=== PATIENT | female | born 1990 | race Caucasian/White ===

== ENCOUNTER 2016-04-27 22:29 | Inpatient (IN) | payer BC ==
[2016-04-27 23:03] LABS: APPEARANCE,URINE CLEAR; BILIRUBIN,URINE NEGATIVE (NEGATIVE); GLUCOSE, URINE NEGATIVE (NEGATIVE); KETONES,URINE NEGATIVE (NEGATIVE); LEUKOCYTE ESTERASE,URINE NEGATIVE (NEGATIVE); NITRITE,URINE NEGATIVE (NEGATIVE); PROTEIN,URINE NEGATIVE (NEGATIVE); URINE SPECIFIC GRAVITY 1.018; UROBILINOGEN,URINE NEGATIVE mg/dL (<2.0)
[2016-04-27 23:18] LABS: URINE BARBITURATES SCREEN NEGATIVE; URINE METHADONE SCREEN NEGATIVE; URINE OPIATES LOW NEGATIVE; URINE PHENCYCLIDINE SCREEN NEGATIVE
[2016-04-28 00:02] LABS: ABSOLUTE BASOPHILS # (AUTO) 0.1 10^3/uL (0.0-0.2); ABSOLUTE EOSINOPHILS # (AUTO) 0.2 10^3/uL (0.0-0.6); ABSOLUTE LYMPHOCYTES (AUTO) 2.6 10^3/uL (0.5-4.7); ABSOLUTE MONOCYTES (AUTO) 1.1 10^3/uL (0.1-1.4); ABSOLUTE NEUT (AUTO) 8.9 10^3/uL (1.7-8.2); BASOPHILS % (AUTO) 0.4 % (0-2); EOSINOPHILS % (AUTO) 1.6 % (0-6); HEMATOCRIT 34.3 % (36.0-47.0); HEMOGLOBIN 11.7 g/dL (12.0-15.5); HGB HCT DIFFERENCE 0.8; LYMPHOCYTES % (AUTO) 20.4 % (13-45); MEAN CORPUSCULAR HEMOGLOBIN 28.1 pg (27.0-33.4); MEAN CORPUSCULAR HGB CONC 34.2 g/dL (32.0-36.0); MEAN CORPUSCULAR VOLUME 82 fl (80-97); MONOCYTES % (AUTO) 8.2 % (3-13); RED BLOOD COUNT 4.18 10^6/uL (3.72-5.28); RED CELL DISTRIBUTION WIDTH 13.7 % (11.5-14.0); SEGMENTED NEUTROPHILS % (AUTO) 69.4 % (42-78); WHITE BLOOD COUNT 12.8 10^3/uL (4.0-10.5)
[2016-04-28] MEDS ORDERED: ACETAMINOPHEN 325 MG TABLET PO PRN (07:16)
[2016-04-28] MEDS ORDERED: DINOPROSTONE 10 MG VAGINAL INSERT.SR PV ONE (07:16)
[2016-04-28] MEDS ORDERED: OXYTOCIN/NORMAL SALINE 1,000 ML IV PRN (07:16)
[2016-04-28] MEDS ORDERED: RINGERS SOLUTION,LACTATED 300 ML IV ONE (07:16)
[2016-04-28] MEDS ORDERED: MAG HYDROX/AL HYDROX/SIMETH SUSP 30 ML UDCUP PO PRN (07:16)
[2016-04-28] MEDS ORDERED: ZOLPIDEM TARTRATE 5 MG TABLET PO PRN (07:16)
[2016-04-28] MEDS ORDERED: DINOPROSTONE 10 MG VAGINAL INSERT.SR ONE ×2 (07:23→20:45)
--- NOTE | 2016-04-28 08:00 | L&D Flow Sheet ---
LD Flowsheet Datetime Report Generated by CPN: 04/28/2016 08:00 Datetime: 04/28/2016 07:47 NBP Sys/Lashell/Mean (mmHg): 121 (QS system process) : 81 (QS system process) : 95 (QS system process) Pulse: 79 (QS system process) LaborFlag: Antepartum (QS system process) Datetime: 04/28/2016 07:38 Medications Cervical Ripening Agents: Cervidil (Heather Cyndi, RN) Datetime: 04/28/2016 07:35 Monitor Interventions for UA: [place] Adjusted (Heather Baidy, RN) Maternal Assessment Level of Consciousness: Fully Conscious (Heather Hanna, JAYLON) DTR's/Clonus: DTRs 1+ (Heather Hanna, RN) Headache: Denies (Heather Hanna, RN) Breath Sounds, Left: Clear and Equal (Heather Hanna, RN) Breath Sounds, Right: Clear and Equal (Heather Hanna, RN) Nausea/Vomiting: Denies (Heather Hanna, RN) RUQ Epigastric Pain: Denies (Heather Hanna, RN) Datetime: 04/28/2016 07:34 NBP Sys/Lashell/Mean (mmHg): 126 (QS system process) : 83 (QS system process) : 100 (QS system process) Pulse: 86 (QS system process) LaborFlag: Antepartum (QS system process) Datetime: 04/28/2016 07:30 Uterine Activity Monitor Mode: External; Palpation (Heather Hanna, RN) Frequency (min): denies (Heather Baidy, RN) Assessment A Monitor Mode: External US (Heather Baidy, RN) FHR Baseline Rate : 125 (Heather Baidy, RN) Variability: Moderate 6-25 bpm (Heather Baidy, RN) Accelerations: 15X15 (Heather Baidy, RN) Decelerations: None (Heather Baidy, RN) Datetime: 04/28/2016 07:13 I/O Interventions: Up to BR (Heather Baidy, RN) Datetime: 04/28/2016 07:08 Patient Care Comments: Report to Jayson Hanna RN and care relinquished (Kinsey Pinkman, RN) Datetime: 04/28/2016 07:07 Communication Comments: Dr Salinas at bedside reviewing POC with pt. (Heather Hanna, RN) Datetime: 04/28/2016 07:02 NBP Sys/[place]hell/Mean (mmHg): 100 (QS system process) : 59 (QS system process) : 76 (QS system process) Pulse: 69 (QS system process) LaborFlag: Antepartum (QS system process) Datetime: 04/28/2016 06:47 NBP Sys/[place]hell/Mean (mmHg): 103 (QS system process) : 57 (QS system process) : 73 (QS system process) Pulse: 73 (QS system process) LaborFlag: Antepartum (QS system process) Datetime: 04/28/2016 06:44 Patient Care Comments: Dr. Salinas reviewed pt strip (Kinsey Pinkfarrell, RN) Datetime: 04/28/2016 06:32 NBP Sys/[place]hell/Mean (mmHg): 98 (QS system process) : 53 (QS system process) : 68 (QS system process) Pulse: 71 (QS system process) LaborFlag: Antepartum (QS system process) Datetime: 04/28/2016 06:30 Uterine Activity Monitor Mode: External; Palpation (Kinsey Chalman, RN) Frequency (min): occ (Kinsey Chalman, RN) Quality: Mild (Kinsey Chalman, RN) Duration (sec): 50-70 (Kinsey Chalman, RN) Pattern: Normal: <= 5 Contractions in 10 Minutes (Kinsey Chalman, RN) Resting Tone (Palpate): Relaxed (Kinsey Chalman, RN) Assessment A Monitor Mode: External US (Kinsey Chalman, RN) FHR Baseline Rate : 125 (Kinsey Chalman, RN) FHR Baseline Changes: No Baseline Change (Kinsey Chalman, RN) Variability: Moderate 6-25 bpm (Kinsey Chalman, RN) Accelerations: 15X15 (Kinsey Chalman, RN) Decelerations: None (Kinsey Chalman, RN) Datetime: 04/28/2016 06:17 NBP Sys/[place]hell/Mean (mmHg): 99 (QS system process) : 56 (QS system process) : 73 (QS system process) Pulse: 74 (QS system process) LaborFlag: Antepartum (QS system process) Datetime: 04/28/2016 06:02 NBP Sys/[place]hell/Mean (mmHg): 112 (QS system process) : 59 (QS system process) : 79 (QS system process) Pulse: 83 (QS system process) LaborFlag: Antepartum (QS system process) Datetime: 04/28/2016 06:00 Uterine Activity Monitor Mode: External; Palpation (Kinsey Chalman, RN) Frequency (min): none (Kinsey Chalman, RN) Assessment A Monitor Mode: External US (Kinsey Chalman, RN) FHR Baseline Rate : 125 (Kinsey Chalman, RN) FHR Baseline Changes: No Baseline Change (Kinsey Chalman, RN) Variability: Moderate 6-25 bpm (Kinsey Chalman, RN) Accelerations: 15X15 (Kinsey Chalman, RN) Decelerations: None (Kinsey Chalman, RN) Datetime: 04/28/2016 05:47 NBP Sys/[place]hell/Mean (mmHg): 93 (QS system process) : 50 (QS system process) : 65 (QS system process) Pulse: 68 (QS system process) LaborFlag: Antepartum (QS system process) Datetime: 04/28/2016 05:33 NBP Sys/[place]hell/Mean (mmHg): 101 (QS system process) : 55 (QS system process) : 72 (QS system process) Pulse: 70 (QS system process) LaborFlag: Antepartum (QS system process) Datetime: 04/28/2016 05:30 Uterine Activity Monitor Mode: External; Palpation (Kinsey Chalman, RN) Frequency (min): none (Kinsey Chalman, RN) Assessment A Monitor Mode: External US (Kinsey Chalman, RN) FHR Baseline Rate : 125 (Kinsey Chalman, RN) FHR Baseline Changes: No Baseline Change (Kinsey Chalman, RN) Variability: Moderate 6-25 bpm (Kinsey Chalman, RN) Accelerations: 15X15 (Kinsey Chalman, RN) Decelerations: None (Kinsey Chalman, RN) Datetime: 04/28/2016 05:18 NBP Sys/[place]/Mean (mmHg): 121 (QS system process) : 68 (QS system process) : 84 (QS system process) Pulse: 84 (QS system process) LaborFlag: Antepartum (QS system process) Datetime: 04/28/2016 05:02 NBP Sys/[place]/Mean (mmHg): 110 (QS system process) : 70 (QS system process) : 85 (QS system process) Pulse: 89 (QS system process) LaborFlag: Antepartum (QS system process) Datetime: 04/28/2016 05:00 Uterine Activity Monitor Mode: External; Palpation (Kinsey Chalman, RN) Frequency (min): none (Kinsey Chalman, RN) Assessment A Monitor Mode: External US (Kinsey Chalman, RN) FHR Baseline Rate : 125 (Kinsey Chalman, RN) FHR Baseline Changes: No Baseline Change (Kinsey Chalman, RN) Variability: Moderate 6-25 bpm (Kinsey Chalman, RN) Accelerations: 15X15 (Kinsey Chalman, RN) Decelerations: None (Kinsey Chalman, RN) Datetime: 04/28/2016 04:47 NBP Sys/[place]/Mean (mmHg): 107 (QS system process) : 63 (QS system process) : 80 (QS system process) Pulse: 81 (QS system process) LaborFlag: Antepartum (QS system process) Datetime: 04/28/2016 04:32 NBP Sys/[place]/Mean (mmHg): 105 (QS system process) : 57 (QS system process) : 74 (QS system process) Pulse: 80 (QS system process) LaborFlag: Antepartum (QS system process) Datetime: 04/28/2016 04:30 Uterine Activity Monitor Mode: External; Palpation (Kinsey Chalman, RN) Frequency (min): none (Kinsey Mathew, RN) Assessment A Monitor Mode: External US (Kinsey Chalman, RN) FHR Baseline Rate : 125 (Kinsey Chalman, RN) FHR Baseline Changes: No Baseline Change (Kinsey Chalman, RN) Variability: Moderate 6-25 bpm (Kinsey Chalman, RN) Accelerations: 15X15 (Kinsey Chalman, RN) Decelerations: None (Kinsey Chalman, RN) Datetime: 04/28/2016 04:17 NBP Sys/[place]/Mean (mmHg): 107 (QS system process) : 61 (QS system process) : 78 (QS system process) Pulse: 72 (QS system process) LaborFlag: Antepartum (QS system process) Datetime: 04/28/2016 04:02 NBP Sys/[place]/Mean (mmHg): 106 (QS system process) : 60 (QS system process) : 77 (QS system process) Pulse: 75 (QS system process) LaborFlag: Antepartum (QS system process) Datetime: 04/28/2016 04:00 Uterine Activity Monitor Mode: External; Palpation (Kinsey Chalman, RN) Frequency (min): none (Kinsey Chalman, RN) Assessment A Monitor Mode: External US (Kinsey Chalman, RN) FHR Baseline Rate : 125 (Kinsey Chalman, RN) Variability: Moderate 6-25 bpm (Kinsey Chalman, RN) Accelerations: 15X15 (Kinsey Chalman, RN) Decelerations: None (Kinsey Chalman, RN) Datetime: 04/28/2016 03:47 NBP Sys/[place]/Mean (mmHg): 113 (QS system process) : 65 (QS system process) : 83 (QS system process) Pulse: 75 (QS system process) LaborFlag: Antepartum (QS system process) Datetime: 04/28/2016 03:33 NBP Sys/[place]/Mean (mmHg): 119 (QS system process) : 64 (QS system process) : 84 (QS system process) Pulse: 86 (QS system process) LaborFlag: Antepartum (QS system process) Datetime: 04/28/2016 03:30 Uterine Activity Monitor Mode: External; Palpation (Kinsey Chalman, RN) Frequency (min): none (Kinsey Chalman, RN) Assessment A Monitor Mode: External US (Kinsey Mathew, RN) FHR Baseline Rate : 135 (Kinsey Mathew, RN) FHR Baseline Changes: No Baseline Change (Kinsey Aprylman, RN) Variability: Moderate 6-25 bpm (Kinsey Aprylman, RN) Accelerations: 15X15 (Kinsey Mathew, RN) Decelerations: None (Kinsey Chalman, RN) Datetime: 04/28/2016 03:17 NBP Sys/[place]hell/Mean (mmHg): 119 (QS system process) : 72 (QS system process) : 91 (QS system process) Pulse: 75 (QS system process) LaborFlag: Antepartum (QS system process) Datetime: 04/28/2016 03:02 NBP Sys/[place]/Mean (mmHg): 116 (QS system process) : 67 (QS system process) : 85 (QS system process) Pulse: 77 (QS system process) LaborFlag: Antepartum (QS system process) Datetime: 04/28/2016 03:00 Uterine Activity Monitor Mode: External; Palpation (Kinsey Chalman, RN) Frequency (min): none (Kinsey Chalman, RN) Assessment A Monitor Mode: External US (Kinsey Chalman, RN) FHR Baseline Rate : 135 (Kinsey Chalman, RN) Variability: Moderate 6-25 bpm (Kinsey Chalman, RN) Accelerations: 15X15 (Kinsey Chalman, RN) Decelerations: None (Kinsey Chalman, RN) Datetime: 04/28/2016 01:33 I/O Interventions: Up to BR (Kinsey Chalman, RN) Datetime: 04/28/2016 01:32 NBP Sys/[place]/Mean (mmHg): 117 (QS system process) : 71 (QS system process) : 88 (QS system process) Pulse: 94 (QS system process) LaborFlag: Antepartum (QS system process) Datetime: 04/28/2016 01:30 Uterine Activity Monitor Mode: External; Palpation (Kinsey Chalman, RN) Frequency (min): none (Kinsey Chalman, RN) Assessment A Monitor Mode: External US (Kinsey Chalman, RN) FHR Baseline Rate : 140 (Kinsey Chalman, RN) FHR Baseline Changes: No Baseline Change (Kinsey Chalman, RN) Variability: Moderate 6-25 bpm (Kinsey Chalman, RN) Accelerations: 15X15 (Kinsey Chalman, RN) Decelerations: None (Kinsey Chalman, RN) Datetime: 04/28/2016 01:17 NBP Sys/[place]/Mean (mmHg): 116 (QS system process) : 72 (QS system process) : 88 (QS system process) Pulse: 80 (QS system process) LaborFlag: Antepartum (QS system process) Datetime: 04/28/2016 01:13 Patient Care IV/Blood Work: New IV Bag Hung (Kinsey Chalman, RN) Datetime: 04/28/2016 01:02 NBP Sys/[place]/Mean (mmHg): 122 (QS system process) : 72 (QS system process) : 91 (QS system process) Pulse: 83 (QS system process) LaborFlag: Antepartum (QS system process) Datetime: 04/28/2016 01:00 Uterine Activity Monitor Mode: External; Palpation (Kinsey Chalman, RN) Frequency (min): none (Kinsey Chalman, RN) Assessment A Monitor Mode: External US (Kinsey Chalman, RN) FHR Baseline Rate : 140 (Kinsey Chalman, RN) FHR Baseline Changes: No Baseline Change (Kinsey Mathew, RN) Variability: Moderate 6-25 bpm (Kinsey Mathew, RN) Accelerations: 15X15 (Kinsey Mathew, RN) Datetime: 04/28/2016 00:52 Patient Care Comments: RN at bedside. unprovoked decel. return to baseline without actions for resusciation (Kinsey Carmona, RN) Datetime: 04/28/2016 00:47 NBP Sys/[place]/Mean (mmHg): 126 (QS system process) : 75 (QS system process) : 94 (QS system process) Pulse: 78 (QS system process) LaborFlag: Antepartum (QS system process) Datetime: 04/28/2016 00:32 NBP Sys/[place]hell/Mean (mmHg): 140 (QS system process) : 79 (QS system process) : 103 (QS system process) Pulse: 87 (QS system process) LaborFlag: Antepartum (QS system process) Datetime: 04/28/2016 00:30 Uterine Activity Monitor Mode: External; Palpation (Kinsey Chalman, RN) Frequency (min): none (Kinsey Chalman, RN) Assessment A Monitor Mode: External US (Kinsey Chalman, RN) FHR Baseline Rate : 145 (Kinsey Chalman, RN) FHR Baseline Changes: Return to Previous Baseline (Kinsey Chalman, RN) Variability: Moderate 6-25 bpm (Kinsey Chalman, RN) Decelerations: None (Kinsey Chalman, RN) Communication Additional Nursing Comments: per u/s tech NORI = 8.3 (Kinsey Chalman, RN) Datetime: 04/28/2016 00:21 Patient Care Comments: pt off monitor for u/s (Kinsey Chalman, RN) Datetime: 04/28/2016 00:19 Patient Care Comments: u/s at bedside (Shruthi Jorge, RN) Datetime: 04/28/2016 00:18 NBP Sys/[place]hell/Mean (mmHg): 132 (QS system process) : 74 (QS system process) : 98 (QS system process) Pulse: 79 (QS system process) LaborFlag: Antepartum (QS system process) Datetime: 04/28/2016 00:16 Patient Care Comments: new iv bag hung (Kinsey Chalman, RN) Datetime: 04/28/2016 00:15 Uterine Activity Monitor Mode: External; Palpation (Kinsey Chalman, RN) Frequency (min): none (Kinsey Chalman, RN) Assessment A Monitor Mode: External US (Kinsey Chalman, RN) FHR Baseline Rate : 135 (Kinsey Chalman, RN) Variability: Moderate 6-25 bpm (Kinsey Chalman, RN) Accelerations: 15X15 (Kinsey Chalman, RN) Decelerations: None (Kinsey Chalman, RN) Datetime: 04/28/2016 00:12 I/O Interventions: Up to BR (Kinsey Chalman, RN) Datetime: 04/28/2016 00:09 Patient Care Comments: Dr Salinas at bedside to review POC with pt. Provider explained to pt that we weould observe her until the AM but if FHR decels again that stat c/s would be called (Kinsey Aprylman, RN) Communication Additional Nursing Comments: Dr. Salinas order stat bedside u/s for NORI (Kinsey Chalman, RN) Datetime: 04/28/2016 00:03 NBP Sys/[place]/Mean (mmHg): 121 (QS system process) : 77 (QS system process) : 93 (QS system process) Pulse: 87 (QS system process) LaborFlag: Antepartum (QS system process) Datetime: 04/28/2016 00:00 Uterine Activity Monitor Mode: External; Palpation (Kinsey Aprylman, RN) Frequency (min): none (Kinsey Carmona, RN) Assessment A Monitor Mode: External US (Kinsey Chalman, RN) FHR Baseline Rate : 130 (Kinsey Chalman, RN) Variability: Moderate 6-25 bpm (Kinsey Chalman, RN) Accelerations: 15X15 (Kinsey Chalman, RN) Decelerations: None (Kinsey Chalman, RN) Datetime: 04/27/2016 23:45 Uterine Activity Monitor Mode: External; Palpation (Kinsey Chalman, RN) Frequency (min): none (Kinsey Chalman, RN) Assessment A Monitor Mode: External US (Kinsey Chalman, RN) FHR Baseline Rate : 125 (Kinsey Chalman, RN) Variability: Moderate 6-25 bpm (Kinsey Chalman, RN) Decelerations: Prolonged (Kinsey Chalman, RN) Datetime: 04/27/2016 23:37 Communication Comments: orders received from dr salinas top admit pt. at this time (Shruthi Jorge, RN) Datetime: 04/27/2016 23:36 Patient Care Comments: pt prepped for possible stat c/s (Kinsey Chalman, RN) Datetime: 04/27/2016 23:35 Communication Comments: Orders received to notify second provider for backup if decel continues for more than 3 minutes (Mckenna Ring, RN) Communication Comments: Dr. Salinas notified of decelerations. (Mckenna Ring, RN) Datetime: 04/27/2016 23:34 NBP Sys/[place]hell/Mean (mmHg): 136 (QS system process) : 95 (QS system process) : 112 (QS system process) Pulse: 86 (QS system process) Actions for Decelerations: Hands and Knees (Kinsey Carmona RN) Vaginal Exam Comments: closed (Kinsey Carmona RN) Patient Care Comments: 2nd RN ay bedside (Kinsey Carmona RN) LaborFlag: Antepartum (QS system process) Datetime: 04/27/2016 23:32 Actions for Decelerations: Side to Side (Kinsey Chalman, RN) Datetime: 04/27/2016 23:31 Patient Care Comments: RN at bedside. audibel decel (Kinsey Chalman, RN) Datetime: 04/27/2016 23:30 Uterine Activity Monitor Mode: External; Palpation (Kinsey Chalman, RN) Frequency (min): none (Kinsey Chalman, RN) Assessment A Monitor Mode: External US (Kinsey Chalman, RN) FHR Baseline Rate : 140 (Kinsey Chalman, RN) Variability: Moderate 6-25 bpm (Kinsey Chalman, RN) Accelerations: 10X10 (Kinsey Chalman, RN) Decelerations: None (Kinsey Chalman, RN) Datetime: 04/27/2016 23:21 Patient Care IV/Blood Work: IV Started; IV Bolus Started (Mckenna Ring, RN) Datetime: 04/27/2016 23:18 NBP Sys/[place]/Mean (mmHg): 141 (QS system process) : 93 (QS system process) : 112 (QS system process) Pulse: 85 (QS system process) LaborFlag: Antepartum (QS system process) Datetime: 04/27/2016 23:16 Patient Care IV/Blood Work: IV Started; IV Bolus Started (Kinsey Aprylman, RN) Datetime: 04/27/2016 23:15 Uterine Activity Monitor Mode: External; Palpation (Kinsey Mathew, RN) Frequency (min): none (Kinsey Aprylman, RN) Assessment A Monitor Mode: External US (Kinsey Carmona, RN) FHR Baseline Rate : 150 (Kinsey Carmona, RN) FHR Baseline Changes: No Baseline Change (Kinsey Chalman, RN) Variability: Moderate 6-25 bpm (Kinsey Chalman, RN) Accelerations: 10X10 (Kinsey Chalman, RN) Decelerations: Prolonged (Kinsey Chalman, RN) Datetime: 04/27/2016 23:13 Actions for Decelerations: Hands and Knees; Oxygen Applied (Kinsey Aprylman, RN) Datetime: 04/27/2016 23:12 Patient Care Comments: 2nd RN at bedside (Kinsey Aprylman, RN) Datetime: 04/27/2016 23:10 Actions for Decelerations: Side to Side (Kinsey Carmona RN) Comments: audible decel. actions for decelerations taken (Kinsey Carmona RN) Patient Care Comments: RN at bedside eval FHR (Kinsey Carmona, JAYLON) Datetime: 04/27/2016 23:06 Communication Additional Nursing Comments: report given to Dr. Salinas. provider aware of pt complaint, u/a results, BP and FHA tracing. Per provider once NST is reactive pt ok to be d/c home (Kinsey Carmona RN) Datetime: 04/27/2016 23:04 NBP Sys/[place]/Mean (mmHg): 117 (QS system process) : 74 (QS system process) : 87 (QS system process) Pulse: 90 (QS system process) Temperature (F): 98.0 (Kinsey Chalman, RN) Temperature (C): 36.7 (QS system process) Temperature Route: Oral (Kinsey Mathew, RN) LaborFlag: Antepartum (QS system process) Datetime: 04/27/2016 23:00 Uterine Activity Monitor Mode: External; Palpation (Kinsey Mathew, RN) Frequency (min): none (Kinsey Mathew, RN) Assessment A Monitor Mode: External US (Kinsey Chalman, RN) FHR Baseline Rate : 150 (Kinsey Chalman, RN) FHR Baseline Changes: No Baseline Change (Kinsey Chalman, RN) Variability: Moderate 6-25 bpm (Kinsey Chalman, RN) Accelerations: 15X15 (Kinsey Chalman, RN) Decelerations: None (Kinsey Chalman, RN) Datetime: 04/27/2016 22:56 Pain Pain Scale: 0 (Kinsey Chalman, RN) Pain Presence: None/Denies (Kinsey Chalman, RN) Pain Type: N/A (Kinsey Chalman, RN) Vaginal Exam Membrane Status: Intact (Kinsey Carmona, RN) Vaginal Bleeding: None (Kinsey Chalman, RN) Maternal Assessment Level of Consciousness: Fully Conscious (Kinsey Carmona RN) DTR's/Clonus: DTRs 1+ (Kinsey Carmona, RN) Headache: Generalized (Kinsey Carmona, RN) Breath Sounds, Left: Clear and Equal (Kinsey Carmona, RN) Breath Sounds, Right: Clear and Equal (Kinsey Carmona, RN) Nausea/Vomiting: Hx of Nausea/Vomiting (Kinsey Carmona, JAYLON) RUQ Epigastric Pain: Denies (Annotations: pt denies at this moment but states that it comes and goes over the last 2 weeks) (Kinsey Carmona RN) LaborFlag: Antepartum (QS system process) Datetime: 04/27/2016 22:51 NBP Sys/[place]hell/Mean (mmHg): 117 (QS system process) : 69 (QS system process) : 87 (QS system process) Pulse: 84 (QS system process) LaborFlag: Antepartum (QS system process) Datetime: 04/27/2016 22:00 Vital Signs Stage of : Antepartum (Kinsey Carmona RN)
--- NOTE | 2016-04-28 10:00 | L&D Flow Sheet ---
LD Flowsheet Datetime Report Generated by CPN: 04/28/2016 10:00 Datetime: 04/28/2016 09:56 Monitor Interventions for FHR: Ultrasound Adjusted (Heather Baidy, RN) Datetime: 04/28/2016 09:06 NBP Sys/[place]/Mean (mmHg): 126 (QS system process) : 85 (QS system process) : 97 (QS system process) Pulse: 85 (QS system process) LaborFlag: Antepartum (QS system process) Datetime: 04/28/2016 09:00 Monitor Mode: External; Palpation (Alina Ivan, RN) Frequency (min): Irreg (Alina Ivan, RN) Quality: Mild/Moderate (Alina Ivan, RN) Duration (sec): 50-80 (Alina Ivan, RN) Resting Tone (Palpate): Relaxed (Alina Ivan, RN) Monitor Mode: External US (Alina Ivan, RN) FHR Baseline Rate : 120 (Alina Ivan, RN) Variability: Moderate 6-25 bpm (Alina Ivan, RN) Accelerations: 15X15 (Alina Ivan, RN) Decelerations: None (Alina vIan, RN) Patient Care Comments: pt sitting up in bed eating breakfast, picking up maternal heart rate. (Heather Baidy, RN) Datetime: 04/28/2016 08:52 Patient Care Comments: breakfast tray delivered (Heather Baidy, RN) Datetime: 04/28/2016 08:30 Monitor Mode: External; Palpation (Heather Baidy, RN) Frequency (min): irregular (Heather Baidy, RN) Quality: Mild (Heather Baidy, RN) Duration Criteria: Less than Two 120 Second Contractions (Heather Baidy, RN) Pattern: Normal: <= 5 Contractions in 10 Minutes (Heather Baidy, RN) Resting Tone (Palpate): Relaxed (Heather Baidy, RN) Monitor Mode: External US (Heather Baidy, RN) FHR Baseline Rate : 115 (Heather Baidy, RN) Variability: Moderate 6-25 bpm (Heather Baidy, RN) Accelerations: 15X15 (Heather Baidy, RN) Decelerations: None (Heather Baidy, RN) Datetime: 04/28/2016 08:07 Temperature (F): 97.8 (Heather Baidy, RN) Temperature (C): 36.6 (QS system process) LaborFlag: Antepartum (QS system process) Datetime: 04/28/2016 08:03 NBP Sys/[place]hell/Mean (mmHg): 116 (QS system process) : 71 (QS system process) : 86 (QS system process) Pulse: 72 (QS system process) LaborFlag: Antepartum (QS system process) Datetime: 04/28/2016 08:00 Monitor Mode: External; Palpation (Heather Hanna RN) Frequency (min): irregular (Heather Hanna RN) Quality: Mild (Heather Hanna RN) Duration Criteria: Less than Two 120 Second Contractions (Heather Hanna RN) Pattern: Normal: <= 5 Contractions in 10 Minutes (Heather Hanna RN) Resting Tone (Palpate): Relaxed (Heather Hanna RN) Monitor Mode: External US (Heather Hanna RN) FHR Baseline Rate : 120 (Heather Hanna RN) Variability: Moderate 6-25 bpm (Heather Hanna RN) Accelerations: 15X15 (Heather Hanna RN) Decelerations: None (Heather Hanna RN)
--- NOTE | 2016-04-28 12:00 | L&D Flow Sheet ---
LD Flowsheet Datetime Report Generated by CPN: 04/28/2016 12:00 Datetime: 04/28/2016 11:38 NBP Sys/[place]hell/Mean (mmHg): 124 (QS system process) : 70 (QS system process) : 89 (QS system process) Pulse: 72 (QS system process) LaborFlag: Antepartum (QS system process) Datetime: 04/28/2016 11:30 Monitor Mode: External; Palpation (Heather Hanna, JAYLON) Frequency (min): irregular (Heather Hanna RN) Quality: Mild (Heather Hanna RN) Duration Criteria: Less than Two 120 Second Contractions (Heather Hanna RN) Pattern: Normal: <= 5 Contractions in 10 Minutes (Heather Hanna RN) Resting Tone (Palpate): Relaxed (Heather Hanna, RN) Monitor Mode: External US (Heather Hanna RN) FHR Baseline Rate : 120 (Heather Hanna RN) Variability: Moderate 6-25 bpm (Heather Hanna RN) Accelerations: 15X15 (Heather Hanna RN) Decelerations: None (Heather Hanna, RN) Datetime: 04/28/2016 11:11 Monitor Interventions for UA: [place] Adjusted (Heather Hanna, JAYLON) Datetime: 04/28/2016 11:06 NBP Sys/[place]hell/Mean (mmHg): 124 (QS system process) : 77 (QS system process) : 95 (QS system process) Pulse: 83 (QS system process) I/O Interventions: Up to BR (Heather Hanna RN) LaborFlag: Antepartum (QS system process) Datetime: 04/28/2016 11:00 Monitor Mode: External; Palpation (Heather Baidy, RN) Frequency (min): irregular (Heather Baidy, RN) Quality: Mild (Heather Baidy, RN) Duration Criteria: Less than Two 120 Second Contractions (Heather Baidy, RN) Pattern: Normal: <= 5 Contractions in 10 Minutes (Heather Baidy, RN) Resting Tone (Palpate): Relaxed (Heather Baidy, RN) Monitor Mode: External US (Heather Baidy, RN) FHR Baseline Rate : 120 (Heather Baidy, RN) Variability: Moderate 6-25 bpm (Heather Baidy, RN) Accelerations: 15X15 (Heather Baidy, RN) Decelerations: None (Heather Baidy, RN) Datetime: 04/28/2016 10:30 Monitor Mode: External; Palpation (Heather Baidy, RN) Frequency (min): irregular (Heather Baidy, RN) Quality: Mild (Heather Baidy, RN) Duration Criteria: Less than Two 120 Second Contractions (Heather Baidy, RN) Pattern: Normal: <= 5 Contractions in 10 Minutes (Heather Baicandelario, RN) Resting Tone (Palpate): Relaxed (Heather Baicandelario, RN) Monitor Mode: External US (Heather Hanna, RN) FHR Baseline Rate : 115 (Heather Hanna, RN) Variability: Moderate 6-25 bpm (Heather Baidy, RN) Accelerations: 15X15 (Heather Baidy, RN) Decelerations: None (Heather Baidy, RN) Datetime: 04/28/2016 10:22 Monitor Interventions for UA: [place] Adjusted (Heather Baicandelario, RN) Datetime: 04/28/2016 10:07 NBP Sys/[place]/Mean (mmHg): 122 (QS system process) : 69 (QS system process) : 88 (QS system process) Pulse: 87 (QS system process) LaborFlag: Antepartum (QS system process) Datetime: 04/28/2016 10:00 Monitor Mode: External; Palpation (Heather Hanna RN) Frequency (min): irregular (Heather Hanna RN) Quality: Mild (Heather Hanna RN) Duration Criteria: Less than Two 120 Second Contractions (Heather Hanna RN) Pattern: Normal: <= 5 Contractions in 10 Minutes (Heather Hanna RN) Resting Tone (Palpate): Relaxed (Heather Hanna RN) Monitor Mode: External US (Heather Hanna RN) FHR Baseline Rate : 115 (Heather Hanna RN) Variability: Moderate 6-25 bpm (Heather Hanna RN) Accelerations: 15X15 (Heather Hanna RN) Decelerations: None (Heather Hanna RN)
[2016-04-28] MEDS: RINGERS SOLUTION,LACTATED 1,000 ML IV PRN (13:14)
--- NOTE | 2016-04-28 14:00 | L&D Flow Sheet ---
LD Flowsheet Datetime Report Generated by CPN: 04/28/2016 14:00 Datetime: 04/28/2016 13:38 NBP Sys/[place]hell/Mean (mmHg): 131 (QS system process) : 88 (QS system process) : 101 (QS system process) Pulse: 71 (QS system process) LaborFlag: Antepartum (QS system process) Datetime: 04/28/2016 13:17 Patient Care Comments: lunch tray delivered. (Heather Baidy, RN) Datetime: 04/28/2016 13:14 IV/Blood Work: IV Infusing per Order; New IV Bag Hung (Heather Baidy, RN) Datetime: 04/28/2016 13:11 Respirations: 16 (Heather Baidy, RN) Temperature (F): 98.1 (Heather Baidy, RN) Temperature (C): 36.7 (QS system process) LaborFlag: Antepartum (QS system process) Datetime: 04/28/2016 13:07 NBP Sys/[place]/Mean (mmHg): 125 (QS system process) : 74 (QS system process) : 91 (QS system process) Pulse: 68 (QS system process) LaborFlag: Antepartum (QS system process) Datetime: 04/28/2016 13:00 Monitor Mode: External; Palpation (Heather Hanna, RN) Frequency (min): irregular (Heather Baidy, RN) Quality: Mild (Heather Baidy, RN) Duration Criteria: More than Two 120 Second or Greater Contractions (Heather Hanna, RN) Pattern: Normal: <= 5 Contractions in 10 Minutes (Heather Baidy, RN) Resting Tone (Palpate): Relaxed (Heather Baidy, RN) Monitor Mode: External US (Heather Hanna, RN) FHR Baseline Rate : 120 (Heather Baidy, RN) Variability: Moderate 6-25 bpm (Heather Baidy, RN) Accelerations: 15X15 (Heather Baidy, RN) Decelerations: None (Heather Baidy, RN) Datetime: 04/28/2016 12:37 NBP Sys/[place]/Mean (mmHg): 122 (QS system process) : 75 (QS system process) : 91 (QS system process) Pulse: 69 (QS system process) LaborFlag: Antepartum (QS system process) Datetime: 04/28/2016 12:30 Monitor Mode: External; Palpation (Heather Baidy, RN) Frequency (min): irregular (Heather Baidy, RN) Quality: Mild (Heather Baidy, RN) Duration Criteria: Less than Two 120 Second Contractions (Heather Baidy, RN) Pattern: Normal: <= 5 Contractions in 10 Minutes (Heather Baidy, RN) Resting Tone (Palpate): Relaxed (Heather Baidy, RN) Monitor Mode: External US (Heather Baidy, RN) FHR Baseline Rate : 125 (Heather Baidy, RN) Variability: Moderate 6-25 bpm (Heather Baidy, RN) Accelerations: 15X15 (Heather Baidy, RN) Decelerations: None (Heather Baidy, RN) Datetime: 04/28/2016 12:07 NBP Sys/[place]/Mean (mmHg): 122 (QS system process) : 59 (QS system process) : 84 (QS system process) Pulse: 78 (QS system process) LaborFlag: Antepartum (QS system process) Datetime: 04/28/2016 12:00 Monitor Mode: External; Palpation (Heather Hanna RN) Frequency (min): irregular (Heather Hanna RN) Quality: Mild (Heather Hanna RN) Duration Criteria: Less than Two 120 Second Contractions (Heather Hanna RN) Pattern: Normal: <= 5 Contractions in 10 Minutes (Heather Hanna RN) Resting Tone (Palpate): Relaxed (Heather Hanna RN) Monitor Mode: External US (Heather Hanna RN) FHR Baseline Rate : 125 (Heather Hanna RN) FHR Baseline Changes: Return to Previous Baseline (Heather Hanna RN) Variability: Moderate 6-25 bpm (Heather Hanna RN) Accelerations: 15X15 (Heather Hanna RN) Decelerations: None (Heather Hanna RN)
--- NOTE | 2016-04-28 16:00 | L&D Flow Sheet ---
LD Flowsheet Datetime Report Generated by CPN: 04/28/2016 16:00 Datetime: 04/28/2016 15:37 NBP Sys/[place]hell/Mean (mmHg): 121 (QS system process) : 75 (QS system process) : 93 (QS system process) Pulse: 73 (QS system process) LaborFlag: Antepartum (QS system process) Datetime: 04/28/2016 15:19 Monitor Interventions for FHR: Ultras[place] Adjusted (Heather Baidy, RN) Datetime: 04/28/2016 15:07 NBP Sys/[place]/Mean (mmHg): 125 (QS system process) : 69 (QS system process) : 89 (QS system process) Pulse: 76 (QS system process) LaborFlag: Antepartum (QS system process) Datetime: 04/28/2016 14:38 NBP Sys/[place]/Mean (mmHg): 126 (QS system process) : 65 (QS system process) : 88 (QS system process) Pulse: 80 (QS system process) LaborFlag: Antepartum (QS system process) Datetime: 04/28/2016 14:30 Monitor Mode: External; Palpation (Heather Baidy, RN) Frequency (min): irregular (Heather Baidy, RN) Quality: Mild (Heather Baidy, RN) Duration Criteria: Less than Two 120 Second Contractions (Heather Baidy, RN) Pattern: Normal: <= 5 Contractions in 10 Minutes (Heather Baidy, RN) Resting Tone (Palpate): Relaxed (Heather Baidy, RN) Monitor Mode: External US (Heather Baidy, RN) FHR Baseline Rate : 120 (Heather Baidy, RN) Variability: Moderate 6-25 bpm (Heather Baidy, RN) Accelerations: 15X15 (Heather Baidy, RN) Decelerations: None (Heather Baidy, RN) Datetime: 04/28/2016 14:06 I/O Interventions: Up to BR (Heather Baidy, RN) Datetime: 04/28/2016 14:00 Monitor Mode: External; Palpation (Heather Baidy, RN) Frequency (min): irregular (Heather Baidy, RN) Quality: Mild (Heather Hanna RN) Duration Criteria: Less than Two 120 Second Contractions (Heather Hanna RN) Pattern: Normal: <= 5 Contractions in 10 Minutes (Heather Hanna RN) Resting Tone (Palpate): Relaxed (Heather Hanna RN) Monitor Mode: External US (Heather Hanna RN) FHR Baseline Rate : 120 (Heather Hanan RN) FHR Baseline Changes: Return to Previous Baseline (Heather Hanna RN) Variability: Moderate 6-25 bpm (Heather Hanna RN) Accelerations: 15X15 (Heather Hanna RN) Decelerations: None (Heather Hanna RN)
--- NOTE | 2016-04-28 18:00 | L&D Flow Sheet ---
LD Flowsheet Datetime Report Generated by CPN: 04/28/2016 18:00 Datetime: 04/28/2016 17:37 NBP Sys/[place]hell/Mean (mmHg): 139 (QS system process) : 84 (QS system process) : 107 (QS system process) Pulse: 87 (QS system process) LaborFlag: Antepartum (QS system process) Datetime: 04/28/2016 17:08 NBP Sys/[place]/Mean (mmHg): 131 (QS system process) : 81 (QS system process) : 98 (QS system process) Pulse: 89 (QS system process) LaborFlag: Antepartum (QS system process) Datetime: 04/28/2016 16:59 Monitor Mode: External; Palpation (Heather Hanna, RN) Frequency (min): irregular (Heather Baicandelario, RN) Quality: Mild (Heather Baidy, RN) Duration Criteria: Less than Two 120 Second Contractions (Heather Cyndi, RN) Pattern: Normal: <= 5 Contractions in 10 Minutes (Heather Baidy, RN) Resting Tone (Palpate): Relaxed (Heather Baicandelario, RN) Monitor Mode: External US (Heather Cyndi, RN) FHR Baseline Rate : 120 (Heather Baidy, RN) Variability: Moderate 6-25 bpm (Heather Baidy, RN) Accelerations: 15X15 (Heather Baidy, RN) Decelerations: None (Heather Baidy, RN) Datetime: 04/28/2016 16:37 NBP Sys/[place]/Mean (mmHg): 117 (QS system process) : 70 (QS system process) : 86 (QS system process) Pulse: 75 (QS system process) LaborFlag: Antepartum (QS system process) Datetime: 04/28/2016 16:29 Monitor Mode: External; Palpation (Heather Hanna, RN) Frequency (min): irregular (Heather Hanna, RN) Quality: Mild (Heather Cyndi, RN) Duration Criteria: Less than Two 120 Second Contractions (Heather Hanna, RN) Pattern: Normal: <= 5 Contractions in 10 Minutes (Heather Hanna, RN) Resting Tone (Palpate): Relaxed (Heather Hanna, RN) Monitor Mode: External US (Heather Hanna, RN) FHR Baseline Rate : 125 (Heather Baidy, RN) Variability: Moderate 6-25 bpm (Heather Baidy, RN) Accelerations: 15X15 (Heather Baidy, RN) Decelerations: None (Heather Baidy, RN) Datetime: 04/28/2016 16:15 Monitor Interventions for UA: [place] Adjusted (Heather Hanna, RN) Monitor Interventions for FHR: Ultrasound Adjusted (Heather Hanna, RN) Datetime: 04/28/2016 16:10 I/O Interventions: Up to BR (Heather Baidy, RN) Datetime: 04/28/2016 16:08 NBP Sys/[place]hell/Mean (mmHg): 130 (QS system process) : 84 (QS system process) : 102 (QS system process) Pulse: 74 (QS system process) LaborFlag: Antepartum (QS system process)
--- NOTE | 2016-04-28 20:00 | L&D Flow Sheet ---
LD Flowsheet Datetime Report Generated by CPN: 04/28/2016 20:00 Datetime: 04/28/2016 19:59 Communication: RN Reviewed Strip; Provider Orders Received; Call/Page Placed to Provider (Anahy Mccormick RN) Provider Notified (Name): Dr. Jc (Anahy Mccormick RN) Datetime: 04/28/2016 19:42 Dilatation (cm): 1.0 (Anahy Mccormick RN) Effacement (%): 50 (Anahy Field, RN) Station: -2 (Anahy , RN) Exam by: , RN (Anahy Mccormick, RN) Datetime: 04/28/2016 19:39 Temperature (F): 98.3 (Anahy Mccormick, RN) Temperature (C): 36.8 (QS system process) LaborFlag: Antepartum (QS system process) Datetime: 04/28/2016 19:37 NBP Sys/[place]hell/Mean (mmHg): 127 (QS system process) : 68 (QS system process) : 92 (QS system process) Pulse: 83 (QS system process) LaborFlag: Antepartum (QS system process) Datetime: 04/28/2016 19:24 Level of Consciousness: Fully Conscious (Anahy Field, RN) DTR's/Clonus: DTRs 1+; No Clonus (Anahy Field, RN) Headache: Denies (Anahy Field, RN) Breath Sounds, Left: Clear and Equal (Anahy Field, RN) Breath Sounds, Right: Clear and Equal (Anahy Field, RN) Nausea/Vomiting: Denies (Anahy Field, RN) RUQ Epigastric Pain: Denies (Anahy Field, RN) Datetime: 04/28/2016 19:08 Communication Comments: handoff report given to [facility] RN (Heather Hanna, RN) Datetime: 04/28/2016 19:07 NBP Sys/[place]/Mean (mmHg): 113 (QS system process) : 67 (QS system process) : 85 (QS system process) Pulse: 71 (QS system process) LaborFlag: Antepartum (QS system process) Datetime: 04/28/2016 19:00 Monitor Mode: External; Palpation (Heather Hanna, RN) Frequency (min): irregular (Heather Cyndi, RN) Quality: Mild (Heather Baidy, RN) Duration Criteria: Less than Two 120 Second Contractions (Heather Baidy, RN) Pattern: Normal: <= 5 Contractions in 10 Minutes (Heather Baidy, RN) Resting Tone (Palpate): Relaxed (Heather Cyndi, RN) Monitor Mode: External US (Heather Hanna, RN) FHR Baseline Rate : 125 (Heather Baidy, RN) Variability: Moderate 6-25 bpm (Heather Baidy, RN) Accelerations: 15X15 (Heather Baidy, RN) Decelerations: None (Heather Baidy, RN) Datetime: 04/28/2016 18:37 NBP Sys/[place]/Mean (mmHg): 124 (QS system process) : 78 (QS system process) : 96 (QS system process) Pulse: 78 (QS system process) LaborFlag: Antepartum (QS system process) Datetime: 04/28/2016 18:30 Monitor Mode: External; Palpation (Heather Hanna, RN) Frequency (min): irregular (Heather Baidy, RN) Quality: Mild (Heather Baidy, RN) Duration Criteria: Less than Two 120 Second Contractions (Heather Baidy, RN) Pattern: Normal: <= 5 Contractions in 10 Minutes (Heather Baidy, RN) Resting Tone (Palpate): Relaxed (Heather Baicandelario, RN) Monitor Mode: External US (Heather Hanna, RN) FHR Baseline Rate : 120 (Heather Baidy, RN) Variability: Moderate 6-25 bpm (Heather Baidy, RN) Accelerations: 15X15 (Heather Baidy, RN) Decelerations: None (Heather Baidy, RN) Datetime: 04/28/2016 18:08 NBP Sys/[place]/Mean (mmHg): 118 (QS system process) : 82 (QS system process) : 95 (QS system process) Pulse: 80 (QS system process) LaborFlag: Antepartum (QS system process) Datetime: 04/28/2016 18:00 Monitor Mode: External; Palpation (Heather Hanna RN) Frequency (min): irregular (Heather Hanna RN) Quality: Mild (Heather Hanna RN) Duration Criteria: Less than Two 120 Second Contractions (Heather Hanna RN) Pattern: Normal: <= 5 Contractions in 10 Minutes (Heather Hanna RN) Resting Tone (Palpate): Relaxed (Heather Hanna, RN) Monitor Mode: External US (Heather Hanna RN) FHR Baseline Rate : 125 (Heather Hanna, RN) Variability: Moderate 6-25 bpm (Heather Hanna, RN) Accelerations: 15X15 (Heather Hanna, RN) Decelerations: None (Heather Hanna, RN) Patient Care Comments: dinner tray delivered (Heather Hanna, JAYLON)
[2016-04-28] MEDS ORDERED: DINOPROSTONE 10 MG VAGINAL INSERT.SR PV PRN (20:45)
--- NOTE | 2016-04-28 22:00 | L&D Flow Sheet ---
LD Flowsheet Datetime Report Generated by CPN: 04/28/2016 22:00 Datetime: 04/28/2016 21:48 NBP Sys/[place]/Mean (mmHg): 107 (QS system process) : 73 (QS system process) : 83 (QS system process) Pulse: 80 (QS system process) LaborFlag: Antepartum (QS system process) Datetime: 04/28/2016 21:19 NBP Sys/[place]/Mean (mmHg): 118 (QS system process) : 73 (QS system process) : 88 (QS system process) Pulse: 77 (QS system process) LaborFlag: Antepartum (QS system process) Datetime: 04/28/2016 21:00 Monitor Mode: External; Palpation (Anahy Field, RN) Frequency (min): Irritability (Anahy Field, RN) Quality: Mild (Anahy Field, RN) Pattern: Normal: <= 5 Contractions in 10 Minutes (Anahy Field, RN) Resting Tone (Palpate): Relaxed (Anahy Field, RN) Monitor Mode: External US (Anahy Field, RN) FHR Baseline Rate : 130 (Anahy Field, RN) Variability: Moderate 6-25 bpm (Anahy Field, RN) Accelerations: 15X15 (Anahy Field, RN) Decelerations: None (Anahy Field, RN) Datetime: 04/28/2016 20:54 Cervical Ripening Agents: Cervidil (Anahy Field, RN) Datetime: 04/28/2016 20:48 NBP Sys/[place]hell/Mean (mmHg): 127 (QS system process) : 85 (QS system process) : 96 (QS system process) Pulse: 80 (QS system process) LaborFlag: Antepartum (QS system process) Datetime: 04/28/2016 20:41 Communication: RN at Bedside; Provider at Bedside (Anahy Mccormick RN) Communication Comments: Dr. Jc at bedside (Anahy Mccormick RN)
[2016-04-28] MEDS ORDERED: ZOLPIDEM TARTRATE 5 MG TABLET ONE (22:46)
--- NOTE | 2016-04-29 08:01 | L&D Flow Sheet ---
LD Flowsheet Datetime Report Generated by CPN: 04/29/2016 08:00 Datetime: 04/29/2016 07:48 NBP Sys/Lashell/Mean (mmHg): 121 (QS system process) : 79 (QS system process) : 95 (QS system process) Pulse: 62 (QS system process) LaborFlag: Antepartum (QS system process) Datetime: 04/29/2016 07:30 Monitor Mode: External; Palpation (Vicki Sara, RN) Frequency (min): irreg (Vicki Sara, RN) Quality: Mild (Vicki Sara, RN) Resting Tone (Palpate): Relaxed (Vicki Sara, RN) Monitor Mode: External US (Vicki Sara, RN) FHR Baseline Rate : 120 (Vicki Sara, RN) Variability: Moderate 6-25 bpm (Vicki Sara, RN) Accelerations: 15X15 (Vicki Sara, RN) Decelerations: None (Vicki Sara, RN) Datetime: 04/29/2016 07:24 Level of Consciousness: Fully Conscious (Vicki Sara, RN) Headache: Denies (Vicki Sara, RN) Breath Sounds, Left: Clear and Equal (Vicki Sara, RN) Breath Sounds, Right: Clear and Equal (Vicki Sara, RN) Nausea/Vomiting: Denies (Vicki Sara, RN) RUQ Epigastric Pain: Denies (Vicki Sara, RN) Datetime: 04/29/2016 07:18 NBP Sys/Lashell/Mean (mmHg): 124 (QS system process) : 83 (QS system process) : 98 (QS system process) Pulse: 77 (QS system process) LaborFlag: Antepartum (QS system process) Datetime: 04/29/2016 07:12 Communication: Report Given to @ JAYLON Mcmullen; care relinquished at this time. (Anahy Mccormick, RN) Datetime: 04/29/2016 07:00 Monitor Mode: External; Palpation (Anahy Mccormick RN) Frequency (min): 2.5-6.5 (Anahy Mccormick RN) Quality: Mild (Anahy Mccormick RN) Duration (sec): 60-80 (Anahy Mccormick, RN) Pattern: Normal: <= 5 Contractions in 10 Minutes (Anahy Mccormick, RN) Resting Tone (Palpate): Relaxed (Anahy Mccormick RN) Monitor Mode: External US (Anahy Mccormick RN) FHR Baseline Rate : 125 (Anahy Mccormick, RN) Variability: Moderate 6-25 bpm (Anahy Mccormick, RN) Accelerations: 15X15 (Anahy Mccormick, RN) Decelerations: None (Anahy Field, RN) Datetime: 04/29/2016 06:54 NBP Sys/Lashell/Mean (mmHg): 130 (QS system process) : 60 (QS system process) : 85 (QS system process) Pulse: 80 (QS system process) LaborFlag: Antepartum (QS system process) Datetime: 04/29/2016 06:48 NBP Sys/Lashell/Mean (mmHg): 164 (QS system process) : 106 (QS system process) : 127 (QS system process) Pulse: 68 (QS system process) Patient Care Comments: Patient up to BR; BP cuff started going off and panicked and stuck his arm into cuff; hence the high BP. (Anahy Mccormick RN) LaborFlag: Antepartum (QS system process) Datetime: 04/29/2016 06:46 I/O Interventions: Up to BR (Anahy Field, RN) Datetime: 04/29/2016 06:30 Monitor Mode: External; Palpation (Anahy Field, RN) Frequency (min): 2-3.5 (Anahy Field, RN) Quality: Mild (Anahy Field, RN) Duration (sec): 60-90 (Anahy Field, RN) Pattern: Normal: <= 5 Contractions in 10 Minutes (Anahy Field, RN) Resting Tone (Palpate): Relaxed (Anahy Field, RN) Monitor Mode: External US (Anahy Field, RN) FHR Baseline Rate : 125 (Anahy Field, RN) Variability: Moderate 6-25 bpm (Anahy Field, RN) Accelerations: 15X15 (Anahy Field, RN) Decelerations: None (Anahy Field, RN) Datetime: 04/29/2016 06:18 NBP Sys/Lashell/Mean (mmHg): 127 (QS system process) : 88 (QS system process) : 103 (QS system process) Pulse: 85 (QS system process) LaborFlag: Antepartum (QS system process) Datetime: 04/29/2016 06:00 Monitor Mode: External; Palpation (Anahy Field, RN) Frequency (min): 4-7 (Anahy Field, RN) Quality: Mild (Anahy Field, RN) Duration (sec): 70-100 (Anahy Field, RN) Pattern: Normal: <= 5 Contractions in 10 Minutes (Anahy Field, RN) Resting Tone (Palpate): Relaxed (Anahy Field, RN) Monitor Mode: External US (Anahy Field, RN) FHR Baseline Rate : 120 (Anahy Field, RN) Variability: Moderate 6-25 bpm (Anahy Field, RN) Accelerations: 15X15 (Anahy Field, RN) Decelerations: None (Anahy Field, RN) Datetime: 04/29/2016 05:48 NBP Sys/Lashell/Mean (mmHg): 103 (QS system process) : 61 (QS system process) : 77 (QS system process) Pulse: 116 (QS system process) LaborFlag: Antepartum (QS system process) Datetime: 04/29/2016 05:30 Monitor Mode: External; Palpation (Anahy Field, RN) Frequency (min): Irregular (Anahy Field, RN) Quality: Mild (Anahy Field, RN) Pattern: Normal: <= 5 Contractions in 10 Minutes (Anahy Field, RN) Resting Tone (Palpate): Relaxed (Anahy Field, RN) Monitor Mode: External US (Anahy Field, RN) FHR Baseline Rate : 120 (Anahy Field, RN) Variability: Moderate 6-25 bpm (Anahy Field, RN) Accelerations: 15X15 (Anahy Field, RN) Decelerations: None (Anahy Field, RN) Datetime: 04/29/2016 05:19 NBP Sys/Lashell/Mean (mmHg): 89 (QS system process) : 55 (QS system process) : 66 (QS system process) Pulse: 60 (QS system process) LaborFlag: Antepartum (QS system process) Datetime: 04/29/2016 05:00 Monitor Mode: External; Palpation (Anahy Field, RN) Frequency (min): 3-6.5 (Anahy Field, RN) Quality: Mild (Anahy Field, RN) Duration (sec): 50-110 (Anahy Field, RN) Pattern: Normal: <= 5 Contractions in 10 Minutes (Anahy Field, RN) Resting Tone (Palpate): Relaxed (Anahy Field, RN) Monitor Mode: External US (Anahy Field, RN) FHR Baseline Rate : 115 (Anahy Field, RN) Variability: Moderate 6-25 bpm (Anahy Field, RN) Accelerations: 15X15 (Anahy Field, RN) Decelerations: None (Anahy Field, RN) Datetime: 04/29/2016 04:48 NBP Sys/Lashell/Mean (mmHg): 104 (QS system process) : 59 (QS system process) : 78 (QS system process) Pulse: 68 (QS system process) LaborFlag: Antepartum (QS system process) Datetime: 04/29/2016 04:30 Monitor Mode: External; Palpation (Anahy Field, RN) Frequency (min): Irregular (Anahy Field, RN) Quality: Mild (Anahy Field, RN) Pattern: Normal: <= 5 Contractions in 10 Minutes (Anahy Field, RN) Resting Tone (Palpate): Relaxed (Anahy Field, RN) Monitor Mode: External US (Anahy Field, RN) FHR Baseline Rate : 125 (Anahy Field, RN) Variability: Moderate 6-25 bpm (Anahy Field, RN) Accelerations: 15X15 (Anahy Field, RN) Decelerations: None (Anahy Field, RN) Datetime: 04/29/2016 04:18 NBP Sys/Lashell/Mean (mmHg): 102 (QS system process) : 65 (QS system process) : 79 (QS system process) Pulse: 71 (QS system process) LaborFlag: Antepartum (QS system process) Datetime: 04/29/2016 04:00 Monitor Mode: External; Palpation (Anahy Field, RN) Frequency (min): irregular (Anahy Field, RN) Quality: Mild (Anahy Field, RN) Pattern: Normal: <= 5 Contractions in 10 Minutes (Anahy Field, RN) Resting Tone (Palpate): Relaxed (Anahy Field, RN) Monitor Mode: External US (Anahy Field, RN) FHR Baseline Rate : 120 (Anahy Field, RN) Variability: Moderate 6-25 bpm (Anahy Field, RN) Accelerations: 15X15 (Anahy Field, RN) Decelerations: None (Anahy Field, RN) Datetime: 04/29/2016 03:54 Patient Position/Activity: Left Extreme (Anahy Field, RN) Datetime: 04/29/2016 03:47 I/O Interventions: Up to BR (Anahy Field, RN) Datetime: 04/29/2016 03:30 Monitor Mode: External; Palpation (Anahy Field, RN) Frequency (min): Irregular (Anahy Field, RN) Quality: Mild (Anahy Field, RN) Pattern: Normal: <= 5 Contractions in 10 Minutes (Anahy Field, RN) Resting Tone (Palpate): Relaxed (Anahy Field, RN) Monitor Mode: External US (Anahy Field, RN) FHR Baseline Rate : 120 (Anahy Field, RN) Variability: Moderate 6-25 bpm (Anahy Field, RN) Accelerations: 15X15 (Anahy Field, RN) Decelerations: Variable (Anahy Field, RN) Datetime: 04/29/2016 03:21 NBP Sys/Lashell/Mean (mmHg): 109 (QS system process) : 69 (QS system process) : 85 (QS system process) Pulse: 75 (QS system process) LaborFlag: Antepartum (QS system process) Datetime: 04/29/2016 03:00 Monitor Mode: External; Palpation (Anahy Field, RN) Frequency (min): Irregular (Anahy Field, RN) Quality: Mild (Anahy Field, RN) Pattern: Normal: <= 5 Contractions in 10 Minutes (Anahy Field, RN) Resting Tone (Palpate): Relaxed (Anahy Field, RN) Monitor Mode: External US (Anahy Field, RN) FHR Baseline Rate : 125 (Anahy Field, RN) Variability: Moderate 6-25 bpm (Anahy Field, RN) Accelerations: 15X15 (Anahy Field, RN) Decelerations: None (Anahy Field, RN) Datetime: 04/29/2016 02:48 NBP Sys/Lashell/Mean (mmHg): 119 (QS system process) : 72 (QS system process) : 90 (QS system process) Pulse: 66 (QS system process) LaborFlag: Antepartum (QS system process) Datetime: 04/29/2016 02:36 Patient Position/Activity: Right Extreme (Anahy Mccormick, RN) Datetime: 04/29/2016 02:30 Monitor Mode: External; Palpation (Anahy Mccormick, RN) Frequency (min): 11 (Anahy Mccormick, RN) Quality: Mild (Anahy Mccormick, RN) Duration (sec): 70-100 (Anahy Mccormick, RN) Pattern: Normal: <= 5 Contractions in 10 Minutes (Anahy Mccormick, RN) Resting Tone (Palpate): Relaxed (Anahy Mccormick, RN) Monitor Mode: External US (Anahy Mccormick, RN) FHR Baseline Rate : 125 (Anahy Mccormick, RN) Variability: Moderate 6-25 bpm (Anahy Mccormick, RN) Accelerations: 15X15 (Anahy Field, RN) Decelerations: None (Anahy Field, RN) Datetime: 04/29/2016 02:19 NBP Sys/Lashell/Mean (mmHg): 105 (QS system process) : 59 (QS system process) : 74 (QS system process) Pulse: 68 (QS system process) LaborFlag: Antepartum (QS system process) Datetime: 04/29/2016 02:08 Patient Position/Activity: Left Extreme (Anahy Field, RN) Datetime: 04/29/2016 02:02 I/O Interventions: Up to BR (Anahy Field, RN) Datetime: 04/29/2016 02:00 Monitor Mode: External; Palpation (Anahy Field, RN) Frequency (min): Irregular (Anahy Field, RN) Quality: Mild (Anahy Field, RN) Pattern: Normal: <= 5 Contractions in 10 Minutes (Anahy Field, RN) Resting Tone (Palpate): Relaxed (Anahy Field, RN) Monitor Mode: External US (Anahy Field, RN) FHR Baseline Rate : 130 (Anahy Field, RN) Variability: Moderate 6-25 bpm (Anahy Field, RN) Accelerations: 15X15 (Anahy Field, RN) Decelerations: None (Anahy Field, RN) Datetime: 04/29/2016 01:48 NBP Sys/Lashell/Mean (mmHg): 118 (QS system process) : 75 (QS system process) : 92 (QS system process) Pulse: 70 (QS system process) LaborFlag: Antepartum (QS system process) Datetime: 04/29/2016 01:30 Monitor Mode: External; Palpation (Anahy Field, RN) Frequency (min): 7 (Anahy Field, RN) Quality: Mild (Anahy Field, RN) Duration (sec): 50-80 (Anahy Field, RN) Pattern: Normal: <= 5 Contractions in 10 Minutes (Anahy Field, RN) Resting Tone (Palpate): Relaxed (Anahy Field, RN) Monitor Mode: External US (Anahy Field, RN) FHR Baseline Rate : 135 (Anahy Field, RN) Variability: Moderate 6-25 bpm (Anahy Field, RN) Accelerations: 15X15 (Anahy Field, RN) Decelerations: None (Anahy Field, RN) Datetime: 04/29/2016 01:18 NBP Sys/Lashell/Mean (mmHg): 119 (QS system process) : 71 (QS system process) : 87 (QS system process) Pulse: 78 (QS system process) LaborFlag: Antepartum (QS system process) Datetime: 04/29/2016 01:00 Monitor Mode: External; Palpation (Anahy Field, RN) Frequency (min): Irregular (Anahy Field, RN) Quality: Mild (Anahy Field, RN) Pattern: Normal: <= 5 Contractions in 10 Minutes (Anahy Field, RN) Resting Tone (Palpate): Relaxed (Anahy Field, RN) Monitor Mode: External US (Anahy Field, RN) FHR Baseline Rate : 135 (Anahy Field, RN) Variability: Moderate 6-25 bpm (Anahy Field, RN) Accelerations: 15X15 (Anahy Field, RN) Decelerations: None (Anahy Field, RN) Datetime: 04/29/2016 00:48 NBP Sys/Lashell/Mean (mmHg): 116 (QS system process) : 70 (QS system process) : 86 (QS system process) Pulse: 79 (QS system process) LaborFlag: Antepartum (QS system process) Datetime: 04/29/2016 00:30 Monitor Mode: External; Palpation (Anahy Field, RN) Frequency (min): 2-3 (Anahy Field, RN) Quality: Mild (Anahy Field, RN) Duration (sec): 50-110 (Anahy Field, RN) Pattern: Normal: <= 5 Contractions in 10 Minutes (Anahy Field, RN) Resting Tone (Palpate): Relaxed (Anahy Field, RN) Monitor Mode: External US (Anahy Field, RN) FHR Baseline Rate : 125 (Anahy Field, RN) Variability: Moderate 6-25 bpm (Anahy Field, RN) Accelerations: 15X15 (Anahy Field, RN) Decelerations: None (Anahy Field, RN) Datetime: 04/29/2016 00:18 NBP Sys/Lashell/Mean (mmHg): 116 (QS system process) : 65 (QS system process) : 83 (QS system process) Pulse: 75 (QS system process) LaborFlag: Antepartum (QS system process) Datetime: 04/29/2016 00:00 Monitor Mode: External; Palpation (Anahy Field, RN) Frequency (min): Irritability (Anahy Field, RN) Quality: Mild (Anahy Field, RN) Pattern: Normal: <= 5 Contractions in 10 Minutes (Anahy Field, RN) Resting Tone (Palpate): Relaxed (Anahy Field, RN) Monitor Mode: External US (Anahy Field, RN) FHR Baseline Rate : 125 (Anahy Field, RN) Variability: Moderate 6-25 bpm (Anahy Field, RN) Accelerations: 15X15 (Anahy Field, RN) Decelerations: None (Anahy Field, RN) Datetime: 04/28/2016 23:48 NBP Sys/Lashell/Mean (mmHg): 109 (QS system process) : 56 (QS system process) : 76 (QS system process) Pulse: 75 (QS system process) LaborFlag: Antepartum (QS system process) Datetime: 04/28/2016 23:30 Monitor Mode: External; Palpation (Anahy Field, RN) Frequency (min): Irritability (Anahy Field, RN) Quality: Mild (Anahy Field, RN) Pattern: Normal: <= 5 Contractions in 10 Minutes (Anahy Field, RN) Resting Tone (Palpate): Relaxed (Anahy Field, RN) Monitor Mode: External US (Anahy Field, RN) FHR Baseline Rate : 125 (Anahy Field, RN) Variability: Moderate 6-25 bpm (Anahy Field, RN) Accelerations: 15X15 (Anahy Field, RN) Decelerations: None (Anahy Field, RN) Datetime: 04/28/2016 23:18 NBP Sys/Lashell/Mean (mmHg): 110 (QS system process) : 60 (QS system process) : 78 (QS system process) Pulse: 68 (QS system process) LaborFlag: Antepartum (QS system process) Datetime: 04/28/2016 23:00 Monitor Mode: External; Palpation (Anahy Field, RN) Frequency (min): Irritability (Anahy Field, RN) Quality: Mild/Moderate (Anahy Field, RN) Pattern: Normal: <= 5 Contractions in 10 Minutes (Anahy Field, RN) Resting Tone (Palpate): Relaxed (Anahy Field, RN) Monitor Mode: External US (Anahy Field, RN) FHR Baseline Rate : 125 (Anahy Field, RN) Variability: Moderate 6-25 bpm (Anahy Field, RN) Accelerations: 15X15 (Anahy Field, RN) Decelerations: None (Anahy Field, RN) Datetime: 04/28/2016 22:52 Patient Position/Activity: Left Extreme (Anahy Field, RN) Datetime: 04/28/2016 22:51 Analgesics/Sedatives: Ambien (mg) @ 5 PO (Anahy Field, RN) Datetime: 04/28/2016 22:46 I/O Interventions: Up to BR (Anahy Field, RN) Datetime: 04/28/2016 22:30 Monitor Mode: External; Palpation (Anahy Field, RN) Frequency (min): Irritability (Anahy Field, RN) Quality: Mild (Anahy Field, RN) Pattern: Normal: <= 5 Contractions in 10 Minutes (Anahy Field, RN) Resting Tone (Palpate): Relaxed (Anahy Field, RN) Monitor Mode: External US (Anahy Field, RN) FHR Baseline Rate : 135 (Anahy Field, RN) Variability: Moderate 6-25 bpm (Anahy Field, RN) Accelerations: 15X15 (Anahy Field, RN) Decelerations: None (Anahy Field, RN) Patient Position/Activity: Left Extreme (Anahy Field, RN) Datetime: 04/28/2016 22:18 NBP Sys/Lashell/Mean (mmHg): 125 (QS system process) : 79 (QS system process) : 95 (QS system process) Pulse: 81 (QS system process) LaborFlag: Antepartum (QS system process) Datetime: 04/28/2016 22:00 Monitor Mode: External; Palpation (Anahy Mccormick RN) Frequency (min): Irritability (Anahy Mccormick RN) Quality: Mild (Anahy Mccormick RN) Pattern: Normal: <= 5 Contractions in 10 Minutes (Anahy Mccormick RN) Resting Tone (Palpate): Relaxed (Anahy Mccormick RN) Monitor Mode: External US (Anahy Mccormick RN) FHR Baseline Rate : 130 (Anahy Mccormick RN) Variability: Moderate 6-25 bpm (Anahy Mccormick RN) Accelerations: 15X15 (Anahy Mccormick RN) Decelerations: None (Anahy Mccormick RN)
[2016-04-29] MEDS ORDERED: MISOPROSTOL 0.1 MG TABLET ONE (09:52)
--- NOTE | 2016-04-29 10:00 | L&D Flow Sheet ---
LD Flowsheet Datetime Report Generated by CPN: 04/29/2016 10:00 Datetime: 04/29/2016 09:40 Vaginal Exam Comments: fingertip/thick/high (Vicki Sara, RN) Datetime: 04/29/2016 09:39 Communication Comments: K. Hallman CNM a bedside (Vicki Sara, RN) Datetime: 04/29/2016 09:25 Patient Care Comments: pt sitting in chair eating breakfast (Vicki Sara, RN) Datetime: 04/29/2016 08:45 Maternal Comments: pt up in shower (Vicki Sara, RN) Datetime: 04/29/2016 08:27 Monitor Mode: External (Vicki Sara, RN) Frequency (min): irrewg (Vicki Sara, RN) Quality: Mild (Vicki Sara, RN) Resting Tone (Palpate): Relaxed (Vicki Sara, RN) Monitor Mode: External US (Vicki Sara, RN) FHR Baseline Rate : 120 (Vicki Sara, RN) Variability: Moderate 6-25 bpm (Vicki Sara, RN) Accelerations: 15X15 (Vicki Sara, RN) Decelerations: None (Vicki Sara, RN) Medication Comments: Cervidil removed per protocol (Vicki Sara, RN) Datetime: 04/29/2016 08:18 NBP Sys/Lashell/Mean (mmHg): 133 (QS system process) : 84 (QS system process) : 102 (QS system process) Pulse: 84 (QS system process) LaborFlag: Antepartum (QS system process) Datetime: 04/29/2016 08:00 Monitor Mode: External; Palpation (Vicki Sara, RN) Frequency (min): 2-4 (Vicki Sara, RN) Quality: Mild (Vicki Sara, RN) Duration (sec): 60-80 (Vicki Sara, RN) Resting Tone (Palpate): Relaxed (Vicki Sara, RN) Monitor Mode: External US (Vicki Sara, RN) FHR Baseline Rate : 125 (Vicki Sara, RN) Variability: Moderate 6-25 bpm (Vicki Sara, RN) Accelerations: 15X15 (Vicki Ruiz, RN) Decelerations: None (Vicki Ruiz, JAYLON)
[2016-04-29] MEDS ORDERED: MISOPROSTOL 0.1 MG TABLET PO ONE (10:30)
--- NOTE | 2016-04-29 12:00 | L&D Flow Sheet ---
LD Flowsheet Datetime Report Generated by CPN: 04/29/2016 12:00 Datetime: 04/29/2016 11:30 Monitor Mode: External; Palpation (Vicki Sara, RN) Frequency (min): irreg (Vicki Sara, RN) Quality: Mild (Vicki Sara, RN) Resting Tone (Palpate): Relaxed (Vicki Sara, RN) Monitor Mode: External US (Vicki Sara, RN) FHR Baseline Rate : 130 (Vicki Sara, RN) Variability: Moderate 6-25 bpm (Vicki Sara, RN) Accelerations: 15X15 (Vicki Sara, RN) Decelerations: None (Vicki Sara, RN) Datetime: 04/29/2016 11:05 Pain Scale: 0 (Vicki Sara, RN) Patient Care Comments: pt sitting up resting in bed, visiting with family (Vicki Sara, RN) LaborFlag: Antepartum (QS system process) Datetime: 04/29/2016 11:00 Monitor Mode: External (Vicki Sara, RN) Frequency (min): irreg (Vicki Sara, RN) Quality: Mild (Vicki Sara, RN) Resting Tone (Palpate): Relaxed (Vicki Sara, RN) Monitor Mode: External US (Vicki Sara, RN) FHR Baseline Rate : 130 (Vicki Sara, RN) Variability: Moderate 6-25 bpm (Vicki Sara, RN) Accelerations: 15X15 (Vicki Sara, RN) Decelerations: None (Vicki Sara, RN) Datetime: 04/29/2016 10:30 Monitor Mode: External; Palpation (Vicki Sara, RN) Frequency (min): irreg (Vicki Sara, RN) Quality: Mild (Vicki Sara, RN) Resting Tone (Palpate): Relaxed (Vicki Sara, RN) Monitor Mode: External US (Vicki Sara, RN) FHR Baseline Rate : 130 (Vicki Sara, RN) Variability: Moderate 6-25 bpm (Vicki Sara, RN) Accelerations: 15X15 (Vicki Sara, RN) Decelerations: None (Vicki Sara, RN) Datetime: 04/29/2016 10:00 Monitor Mode: External; Palpation (Vicki Sara, RN) Frequency (min): 3-5 (Vicki Sara, RN) Quality: Mild (Vicki Sara, RN) Duration (sec): 60-90 (Vicki Sara, RN) Resting Tone (Palpate): Relaxed (Vicki Sara, RN) Monitor Mode: External US (Vicki Sara, RN) FHR Baseline Rate : 135 (Vicki Sara, RN) Variability: Moderate 6-25 bpm (Vicki Sara, RN) Accelerations: 15X15 (Vicki Sara, RN) Decelerations: None (Vicki Sara, RN)
--- NOTE | 2016-04-29 14:00 | L&D Flow Sheet ---
LD Flowsheet Datetime Report Generated by CPN: 04/29/2016 14:00 Datetime: 04/29/2016 13:30 Monitor Mode: External (Vicki Sara, RN) Frequency (min): occ (Vicki Sara, RN) Quality: Mild (Vicki Sara, RN) Resting Tone (Palpate): Relaxed (Vicki Sara, RN) Monitor Mode: External US (Vicki Sara, RN) FHR Baseline Rate : 130 (Vicki Sara, RN) Variability: Moderate 6-25 bpm (Vicki Sara, RN) Accelerations: 15X15 (Vicki Sara, RN) Decelerations: None (Vicki Sara, RN) Pain Scale: 0 (Vicki Sara, RN) LaborFlag: Antepartum (QS system process) Datetime: 04/29/2016 13:00 Monitor Mode: External; Palpation (Vicki Sara, RN) Frequency (min): occ (Vicki Sara, RN) Quality: Mild (Vicki Sara, RN) Resting Tone (Palpate): Relaxed (Vicki Sara, RN) Monitor Mode: External US (Vicki Sara, RN) FHR Baseline Rate : 130 (Vicki Sara, RN) Variability: Moderate 6-25 bpm (Vicki Sara, RN) Accelerations: 15X15 (Vicki Sara, RN) Decelerations: None (Vicki Sara, RN) Datetime: 04/29/2016 12:30 Monitor Mode: External (Vicki Sara, RN) Frequency (min): occ (Vicki Sara, RN) Quality: Mild (Vicki Sara, RN) Resting Tone (Palpate): Relaxed (Vicki Sara, RN) Monitor Mode: External US (Vicki Sara, RN) FHR Baseline Rate : 130 (Vicki Sara, RN) Variability: Moderate 6-25 bpm (Vicki Sara, RN) Accelerations: 15X15 (Vicki Sara, RN) Decelerations: None (Vicki Sara, RN) Datetime: 04/29/2016 12:00 Monitor Mode: External; Palpation (Vicki Ruiz, RN) Frequency (min): occ (Vicki Sara, RN) Quality: Mild (Vicki Sara, RN) Resting Tone (Palpate): Relaxed (Vicki Sara, RN) Monitor Mode: External US (Vicki Ruiz, RN) FHR Baseline Rate : 135 (Vicki Sara, RN) Variability: Moderate 6-25 bpm (Vicki Sara, RN) Accelerations: 15X15 (Vicki Sara, RN) Decelerations: None (Vickiwesley Ruiz, RN)
[2016-04-29] MEDS ORDERED: OXYTOCIN/NORMAL SALINE 20 UNIT/1,000 ML RTUINJ ONE (14:23)
--- NOTE | 2016-04-29 16:01 | L&D Flow Sheet ---
LD Flowsheet Datetime Report Generated by CPN: 04/29/2016 16:00 Datetime: 04/29/2016 15:34 Pitocin (milliunit): Pitocin Increased to (milliunits) @ 6 (Vicki Sara, RN) I/O Interventions: Up to BR (Vicki Sara, RN) Datetime: 04/29/2016 15:31 NBP Sys/Lashell/Mean (mmHg): 138 (QS system process) : 84 (QS system process) : 105 (QS system process) Pulse: 85 (QS system process) LaborFlag: Antepartum (QS system process) Datetime: 04/29/2016 15:30 Temperature (F): 98.2 (Vicki Ruiz, RN) Temperature (C): 36.8 (QS system process) LaborFlag: Antepartum (QS system process) Datetime: 04/29/2016 15:02 Pitocin (milliunit): Pitocin Increased to (milliunits) @ 4 (Vicki Sara, RN) Datetime: 04/29/2016 15:01 NBP Sys/[place]hell/Mean (mmHg): 124 (QS system process) : 75 (QS system process) : 94 (QS system process) Pulse: 83 (QS system process) LaborFlag: Antepartum (QS system process) Datetime: 04/29/2016 15:00 Monitor Mode: External (Vicki Sara, RN) Frequency (min): occ (Vicki Sara, RN) Quality: Mild (Vicki Sara, RN) Resting Tone (Palpate): Relaxed (Vicki Sara, RN) Monitor Mode: External US (Vicki Sara, RN) FHR Baseline Rate : 135 (Vicki Sara, RN) Variability: Moderate 6-25 bpm (Vicki Sara, RN) Accelerations: 15X15 (Vicki Sara, RN) Decelerations: None (Vicki Sara, RN) Datetime: 04/29/2016 14:45 Monitor Mode: External (Vicki Sara, RN) Frequency (min): occ (Vicki Sara, RN) Quality: Mild/Moderate (Vicki Sara, RN) Resting Tone (Palpate): Relaxed (Vicki Sara, RN) Monitor Mode: External US (Vicki Sara, RN) FHR Baseline Rate : 130 (Vicki Sara, RN) Variability: Moderate 6-25 bpm (Vicki Sara, RN) Accelerations: 15X15 (Vicki Sara, RN) Decelerations: None (Vicki Sara, RN) Datetime: 04/29/2016 14:30 Monitor Mode: External (Vicki Sara, RN) Frequency (min): occ (Vicki Sara, RN) Quality: Mild (Vicki Sara, RN) Resting Tone (Palpate): Relaxed (Vicki Sara, RN) Monitor Mode: External US (Vicki Sara, RN) FHR Baseline Rate : 135 (Vicki Sara, RN) Variability: Moderate 6-25 bpm (Vicki Sara, RN) Accelerations: 15X15 (Vicki Sraa, RN) Decelerations: None (Vicki Sara, RN) Pitocin (milliunit): Pitocin Started (milliunits) @ 2 (Vicki Sara, RN) Datetime: 04/29/2016 14:10 Patient Position/Activity: High Fowlers (Vicki Sara, RN) Datetime: 04/29/2016 14:07 I/O Interventions: Up to BR (Vicki Sara, RN) Datetime: 04/29/2016 14:04 Exam by: K. Hallman CNM (Vicki Sara, RN) Vaginal Exam Comments: fingertip/thick/high (Vicki Sara, RN) Datetime: 04/29/2016 14:01 Communication Comments: Analisa Hallman CNM at bedside (Vicki Sara, RN) Datetime: 04/29/2016 14:00 Monitor Mode: External; Palpation (Vicki Ruiz, RN) Frequency (min): occ (Vicki Sara, RN) Quality: Mild (Vicki Sara, RN) Resting Tone (Palpate): Relaxed (Vicki Ruiz, RN) Monitor Mode: External US (Vicki Ruiz, RN) FHR Baseline Rate : 140 (Vicki Sara, RN) Variability: Moderate 6-25 bpm (Vicki Sara, RN) Accelerations: 15X15 (Vicki Sara, RN) Decelerations: None (Vickiwesley Ruiz, RN)
--- NOTE | 2016-04-29 18:00 | L&D Flow Sheet ---
LD Flowsheet Datetime Report Generated by CPN: 04/29/2016 18:00 Datetime: 04/29/2016 17:37 Monitor Interventions for UA: [place] Adjusted (Vicki Sara, RN) Pitocin (milliunit): Pitocin Increased to (milliunits) @ 12 (Vicki Sara, RN) Datetime: 04/29/2016 17:34 Monitor Interventions for FHR: Ultrasound Adjusted (Vicki Sara, RN) Datetime: 04/29/2016 17:32 NBP Sys/[place]/Mean (mmHg): 119 (QS system process) : 71 (QS system process) : 91 (QS system process) Pulse: 80 (QS system process) LaborFlag: Antepartum (QS system process) Datetime: 04/29/2016 17:01 NBP Sys/[place]/Mean (mmHg): 131 (QS system process) : 73 (QS system process) : 95 (QS system process) Pulse: 92 (QS system process) LaborFlag: Antepartum (QS system process) Datetime: 04/29/2016 16:56 Pitocin (milliunit): Pitocin Increased to (milliunits) @ 10 (Vicki Sara, RN) Datetime: 04/29/2016 16:45 Monitor Mode: External (Vicki Sara, RN) Frequency (min): irreg (Vicki Sara, RN) Quality: Mild (Vicki Saar, RN) Resting Tone (Palpate): Relaxed (Vicki Sara, RN) Monitor Mode: External US (Vicki Sara, RN) FHR Baseline Rate : 130 (Vicki Sara, RN) Variability: Moderate 6-25 bpm (Vicki Sara, RN) Accelerations: 15X15 (Vicki Sara, RN) Decelerations: None (Vicki Sara, RN) Datetime: 04/29/2016 16:31 NBP Sys/[place]/Mean (mmHg): 123 (QS system process) : 75 (QS system process) : 96 (QS system process) Pulse: 80 (QS system process) LaborFlag: Antepartum (QS system process) Datetime: 04/29/2016 16:30 Monitor Mode: External; Palpation (Vicki Sara, RN) Frequency (min): 2-4 (Vicki Sara, RN) Quality: Mild (Vicki Sara, RN) Duration (sec): 70-90 (Vicki Sara, RN) Resting Tone (Palpate): Relaxed (Vicki Sara, RN) Monitor Mode: External US (Vicki Sara, RN) FHR Baseline Rate : 135 (Vicki Sara, RN) Variability: Moderate 6-25 bpm (Vicki Sara, RN) Accelerations: 15X15 (Vicki Sara, RN) Decelerations: None (Vicki Sara, RN) Pitocin (milliunit): Pitocin Increased to (milliunits) @ 8 (Mary Anne Vitrano, RN) Datetime: 04/29/2016 16:15 Monitor Mode: External (Vicki Sara, RN) Frequency (min): 2-4 (Vicki Sara, RN) Quality: Mild (Vicki Sara, RN) Duration (sec): 60-80 (Vicki Sara, RN) Resting Tone (Palpate): Relaxed (Vicki Sara, RN) Monitor Mode: External US (Vicki Sara, RN) FHR Baseline Rate : 130 (Vicki Sara, RN) Accelerations: 15X15 (Vicki Sara, RN) Decelerations: None (Vicki Sara, RN) Datetime: 04/29/2016 16:03 NBP Sys/[place]/Mean (mmHg): 150 (QS system process) : 80 (QS system process) : 106 (QS system process) Pulse: 94 (QS system process) LaborFlag: Antepartum (QS system process) Datetime: 04/29/2016 16:00 Monitor Mode: External (Vicki Sara, RN) Frequency (min): 3-5 (Vicki Sara, RN) Quality: Mild (Vicki Sara, RN) Duration (sec): 60-90 (Vicki Sara, RN) Resting Tone (Palpate): Relaxed (Vicki Sara, RN) Monitor Mode: External US (Vicki Sara, RN) FHR Baseline Rate : 135 (Vicki Sara, RN) Variability: Moderate 6-25 bpm (Vicki Ruiz, RN) Accelerations: 15X15 (Vicki Ruiz, RN) Decelerations: None (Vicki Ruiz, RN)
[2016-04-29] MEDS ORDERED: OXYTOCIN/NORMAL SALINE 1,000 ML IV PRN (19:02)
--- NOTE | 2016-04-29 20:00 | L&D Flow Sheet ---
LD Flowsheet Datetime Report Generated by CPN: 04/29/2016 20:00 Datetime: 04/29/2016 19:45 Monitor Mode: External; Palpation (Anahy , RN) [facility] (min[facility] Quality: Mild ([facility], RN) Duration (sec): 60-90 [facility] Resting Tone (Palpate): Relaxed (Anahy Field, RN) Monitor Mode: External US [facility] FHR Baseline Rate : 125 (Anahy [facility], RN) Variability: Moderate 6-25 bpm (Anahy Field, RN) Accelerations: 15X15 (Anahy Field, RN) Decelerations: None [facility] Pitocin (milliunit): Pitocin Remains (milliunits) @ 14 ([facility], RN) Datetime: 04/29/2016 19:31 NBP Sys/[place]/Mean (mmHg): 128 (QS system process) : 83 (QS system process) : 97 (QS system process) Pulse: 77 (QS system process) LaborFlag: Antepartum (QS system process) Datetime: 04/29/2016 19:30 Monitor Mode: External; Palpation (Anahy Field, RN) Frequency (min): Irregular (Anahy Field, RN) Quality: Mild (Anahy Field, RN) Resting Tone (Palpate): Relaxed (Anahy Field, RN) Monitor Mode: External US (Anahy Field, RN) FHR Baseline Rate : 125 (Anahy Field, RN) Variability: Moderate 6-25 bpm (Anahy Field, RN) Accelerations: 15X15 (Anahy Field, RN) Decelerations: None (Anahy Field, RN) Pitocin (milliunit): Pitocin Remains (milliunits) @ 14 (Anahy Field, RN) Datetime: 04/29/2016 19:27 Temperature (F): 98.1 (Anahy Mccormick RN) Temperature (C): 36.7 (QS system process) Level of Consciousness: Fully Conscious (Anahy Mccormick RN) DTR's/Clonus: DTRs 1+; No Clonus (Anahy Mccormick RN) Headache: Denies (Anahy Mccormick RN) Breath Sounds, Left: Clear and Equal (Anahy Mccormick RN) Breath Sounds, Right: Clear and Equal (Anahy Mccormick RN) Nausea/Vomiting: Denies (Anahy Mccormick RN) RUQ Epigastric Pain: Denies (Anahy Mccormick RN) Pitocin (milliunit): Pitocin Remains (milliunits) @ (Annotations: 14) (Anahy Mccormick RN) LaborFlag: Antepartum (QS system process) Datetime: 04/29/2016 19:15 Monitor Mode: External; Palpation (Anahy Mccormick RN) Frequency (min): Irregular (Anahy Mccormick RN) Quality: Mild (Anahy Mccormick RN) Resting Tone (Palpate): Relaxed (Anahy Mccormick RN) Monitor Mode: External US (Anahy Mccormick RN) FHR Baseline Rate : 120 (Anahy Mccormick RN) Variability: Moderate 6-25 bpm (Anahy Field, RN) Accelerations: 15X15 (Anahy Field, RN) Decelerations: None (Anahy Field, RN) Datetime: 04/29/2016 19:07 Communication Comments: Verbal report from A.Sara, RN; last vag exam was FT/Th/High at 1404 (Anahy Field, RN) Datetime: 04/29/2016 19:01 NBP Sys/[place]/Mean (mmHg): 114 (QS system process) : 64 (QS system process) : 84 (QS system process) Pulse: 80 (QS system process) LaborFlag: Antepartum (QS system process) Datetime: 04/29/2016 18:45 Monitor Mode: External (Vicki Sara, RN) Frequency (min): irreg (Vicki Sara, RN) Quality: Mild (Vicki Sara, RN) Resting Tone (Palpate): Relaxed (Vicki Sara, RN) Monitor Mode: External US (Vicki Sara, RN) FHR Baseline Rate : 135 (Vicki Sara, RN) Variability: Moderate 6-25 bpm (Vicki Sara, RN) Accelerations: 15X15 (Vicki Sara, RN) Decelerations: None (Vicki Sara, RN) Datetime: 04/29/2016 18:35 Pitocin (milliunit): Pitocin Increased to (milliunits) @ 14 (Vicki Sara, RN) Datetime: 04/29/2016 18:34 Temperature (F): 98.5 (Vicki Sara, RN) Temperature (C): 36.9 (QS system process) LaborFlag: Antepartum (QS system process) Datetime: 04/29/2016 18:31 NBP Sys/[place]/Mean (mmHg): 116 (QS system process) : 67 (QS system process) : 83 (QS system process) Pulse: 78 (QS system process) LaborFlag: Antepartum (QS system process) Datetime: 04/29/2016 18:30 Monitor Mode: External (Vicki Sara, RN) Frequency (min): irreg (Vicki Sara, RN) Quality: Mild (Vicki Sara, RN) Resting Tone (Palpate): Relaxed (Vicki Sara, RN) Monitor Mode: External US (Vicki Sara, RN) FHR Baseline Rate : 135 (Vicki Sara, RN) Variability: Moderate 6-25 bpm (Vicki Sara, RN) Accelerations: 15X15 (Vicki Sara, RN) Decelerations: None (Vicki Sara, RN) Datetime: 04/29/2016 18:15 Monitor Mode: External (Vicki Sara, RN) Frequency (min): irreg (Vicki Sara, RN) Quality: Mild (Vicki Sara, RN) Resting Tone (Palpate): Relaxed (Vicki Sara, RN) Monitor Mode: External US (Vicki Sara, RN) FHR Baseline Rate : 135 (Vicki Sara, RN) Variability: Moderate 6-25 bpm (Vicki Sara, RN) Accelerations: 15X15 (Vicki Sara, RN) Decelerations: None (Vicki Sara, RN) Datetime: 04/29/2016 18:01 NBP Sys/[place]/Mean (mmHg): 132 (QS system process) : 84 (QS system process) : 104 (QS system process) Pulse: 78 (QS system process) LaborFlag: Antepartum (QS system process) Datetime: 04/29/2016 18:00 Monitor Mode: External (Vicki Sara, RN) Frequency (min): irreg (Vicki Sara, RN) Quality: Mild (Vicki Sara, RN) Resting Tone (Palpate): Relaxed (Vicki Sara, RN) Monitor Mode: External US (Vicki Sara, RN) FHR Baseline Rate : 135 (Vicki Sara, RN) Variability: Moderate 6-25 bpm (Vicki Sara, RN) Accelerations: None (Vicki Sara, RN) Decelerations: None (Vicki Sara, RN)
--- NOTE | 2016-04-29 22:01 | L&D Flow Sheet ---
LD Flowsheet Datetime Report Generated by CPN: 04/29/2016 22:00 Datetime: 04/29/2016 21:31 NBP Sys/[place]/Mean (mmHg): 122 (QS system process) : 83 (QS system process) : 98 (QS system process) Pulse: 83 (QS system process) LaborFlag: Antepartum (QS system process) Datetime: 04/29/2016 21:02 NBP Sys/[place]/Mean (mmHg): 133 (QS system process) : 65 (QS system process) : 92 (QS system process) Pulse: 90 (QS system process) LaborFlag: Antepartum (QS system process) Datetime: 04/29/2016 20:01 NBP Sys/[place]/Mean (mmHg): 123 (QS system process) : 78 (QS system process) : 96 (QS system process) Pulse: 81 (QS system process) LaborFlag: Antepartum (QS system process) Datetime: 04/29/2016 20:00 Monitor Mode: External; Palpation (Anahy Mccormick RN) Frequency (min): 2-2.5 (Anahy Mccormick RN) Quality: Mild (Anahy Mccormick RN) Duration (sec): 50-80 (Anahy Mccormick RN) Resting Tone (Palpate): Relaxed (Anahy Mccormick RN) Monitor Mode: External US (Anahy Mccormick RN) FHR Baseline Rate : 120 (Anahy Mccormick RN) Variability: Moderate 6-25 bpm (Anahy Mccormick RN) Accelerations: 15X15 (Anahy Mccormick RN) Decelerations: None (Anahy Mccormick RN) Pitocin (milliunit): Pitocin Increased to (milliunits) @ 16 (Anahy Mccormick RN)
[2016-04-29] MEDS ORDERED: ZOLPIDEM TARTRATE 5 MG TABLET PO PRN (22:15)
[2016-04-29] MEDS ORDERED: ZOLPIDEM TARTRATE 5 MG TABLET ONE (22:54)
[2016-04-29] MEDS: RINGERS SOLUTION,LACTATED 1,000 ML IV PRN (23:42)
[2016-04-30] MEDS ORDERED: NALBUPHINE HCL INJ 10 MG/1 ML AMPULE ONE (06:12)
--- NOTE | 2016-04-30 08:00 | L&D Flow Sheet ---
LD Flowsheet Datetime Report Generated by CPN: 04/30/2016 08:00 Datetime: 04/30/2016 07:50 Level of Consciousness: Fully Conscious ([place], RNC) DTR's/Clonus: DTRs 2+; No Clonus ([place], RNC) Headache: Denies ([place], RNC) Breath Sounds, Left: Clear and Equal ([place], RNC) Breath Sounds, Right: Clear and Equal ([place], RNC) Nausea/Vomiting: Denies ([place], RNC) RUQ Epigastric Pain: Denies ([place], RNC) Datetime: 04/30/2016 07:38 Comments: EFM off per MD order for pt to ambulate and eat breakfast ([place], RNC) Datetime: 04/30/2016 07:30 Monitor Mode: External; Palpation ([place], RNC) Frequency (min): 7-10 ([place], RNC) Quality: Mild ([place], RNC) Duration (sec): 50-55 ([place], RNC) Pattern: Normal: <= 5 Contractions in 10 Minutes ([place], RNC) Resting Tone (Palpate): Relaxed ([place], RNC) Monitor Mode: External US; Auscultation ([place], RNC) FHR Baseline Rate : 130 ([place], RNC) FHR Baseline Changes: No Baseline Change ([place], RNC) Variability: Moderate 6-25 bpm ([place], RNC) Accelerations: 15X15 ([place], RNC) Decelerations: None ([place], RNC) Datetime: 04/30/2016 07:24 Communication: Provider Orders Received (DURGA Ho) Communication Comments: Dr Miranda on unit strip reveiwed (DURGA Ho) Datetime: 04/30/2016 07:22 NBP Sys/[place]/Mean (mmHg): 114 (QS system process) : 61 (QS system process) : 80 (QS system process) Pulse: 72 (QS system process) LaborFlag: Antepartum (QS system process) Datetime: 04/30/2016 07:15 Instructional Method: Verbal; Patient Instructed; Family/Support Person Instructed; Verbalized Understanding (DURGA Ho) Plan of Care: Plan of Care Discussed (DURGA Ho) Labor/Induction: Cervical Ripening; Induction (DURGA Ho) Teaching Comments: POC reviewed for cervical bulb placement , history ,allergies and efm tracing (DURGA Ho) Communication: RN at Bedside; RN Reviewed Strip (DURGA Ho) Datetime: 04/30/2016 07:10 [facility]ished at this time. (Anahy Field, RN) Datetime: 04/30/2016 07:00 Monitor Mode: External; Palpation (Anahy Field, RN) Frequency (min): x2 (Anahy Field, RN) Quality: Mild (Anahy Field, RN) Duration (sec): 100-120 (Anahy Field, RN) Resting Tone (Palpate): Relaxed (Anahy Field, RN) Monitor Mode: External US (Anahy Field, RN) FHR Baseline Rate : 120 (Anahy Field, RN) Variability: Moderate 6-25 bpm (Anahy Field, RN) Accelerations: 15X15 (Anahy Field, RN) Decelerations: None (Anahy Field, RN) Datetime: 04/30/2016 06:52 NBP Sys/[place]/Mean (mmHg): 124 (QS system process) : 62 (QS system process) : 87 (QS system process) Pulse: 84 (QS system process) LaborFlag: Antepartum (QS system process) Datetime: 04/30/2016 06:22 NBP Sys/[place]/Mean (mmHg): 126 (QS system process) : 73 (QS system process) : 91 (QS system process) Pulse: 86 (QS system process) LaborFlag: Antepartum (QS system process) Datetime: 04/29/2016 23:44 IV/Blood Work: IV Infusing per Order; New IV Bag Hung (Anahy , RN) Datetime: 04/29/2016 23:01 Respirations: 16 (Anahy Mccormick, JAYLON) Temperature (F): 98.8 (Anahy Mccormick RN) Temperature (C): 37.1 (QS system process) Temperature Route: Axillary (Anahy Mccormick RN) LaborFlag: Antepartum (QS system process) Datetime: 04/29/2016 23:00 NBP Sys/[place]/Mean (mmHg): 125 (QS system process) : 80 (QS system process) : 97 (QS system process) Pulse: 69 (QS system process) LaborFlag: Antepartum (QS system process) Datetime: 04/29/2016 22:54 Analgesics/Sedatives: Ambien (mg) @ (Annotations: 10 mg PO) (Anahy Field, RN) Datetime: 04/29/2016 22:06 Pitocin (milliunit): Pitocin Discontinued (Anahy Field, RN) Datetime: 04/29/2016 22:05 Communication Comments: Orders received for Ambien 10 mg, Pitocin off, monitors off for the night; possible arroyo bulb in AM (Anahy Field, RN) Datetime: 04/29/2016 22:03 Dilatation (cm): 0.5 (Anahy Mccormick RN) Effacement (%): 50 (Anahy Mccormick RN) Station: -2 (Anahy Mccormick RN) Exam by: Dr. Miranda (Anahy Mccormick, RN) Datetime: 04/29/2016 22:01 I/O Interventions: Up to BR (Anahy Mccormick, RN) Datetime: 04/29/2016 22:00 Monitor Mode: External; Palpation (Anahy Mccormick, JAYLON) Frequency (min): 2-3 (Anahy Mccormick RN) Quality: Mild (Anahy Mccormick RN) Duration (sec): 50-60 (Anahy Mccormick RN) Resting Tone (Palpate): Relaxed (Anahy Mccormick RN) Monitor Mode: External US (Anahy Mccormick, RN) FHR Baseline Rate : 130 (Anahy Mccormick RN) Variability: Moderate 6-25 bpm (Anahy Field, RN) Accelerations: 15X15 (Anahy Mccormick RN) Decelerations: None (Anahy Mccormick RN) Pitocin (milliunit): Pitocin Remains (milliunits) @ 16 (Anahy Mccormick RN) Communication: RN at Bedside; Provider at Bedside (Anahy Mccormick, JAYLON) Communication Comments: Dr. Miranda at bedside (Anahy Mccormick, JAYLON)
--- NOTE | 2016-04-30 10:00 | L&D Flow Sheet ---
LD Flowsheet Datetime Report Generated by CPN: 04/30/2016 10:00 Datetime: 04/30/2016 09:32 NBP Sys/[place]/Mean (mmHg): 119 (QS system process) : 71 (QS system process) : 89 (QS system process) Pulse: 83 (QS system process) LaborFlag: Antepartum (QS system process)
--- NOTE | 2016-04-30 10:46 | L&D General Admission ---
General Admit Datetime Report Generated by CPN: 04/30/2016 10:45 INFORMATION Patient Age: 25 (04/27/2016 22:29:QS system process) EDC: 05/08/2016 00:00 (04/27/2016 22:30:Kinsey Carmona RN) : 1 (04/27/2016 22:30:Kinsey Carmona RN) Para: 0 (04/27/2016 22:30:Kinsey Carmona RN) Term: 0 (04/27/2016 22:30:Heather Hanna RN) : 0 (04/27/2016 22:30:Heather Hanna RN) Spontaneous Abortions: 0 (04/27/2016 22:30:Heather Hanna RN) Induced Abortions: 0 (04/27/2016 22:30:Heather Hanna RN) Livin (04/27/2016 22:30:Heather Hanna RN) Cesareans: 0 (04/27/2016 22:30:Heather Hanna RN) VBACs: 0 (04/27/2016 22:30:Heather Hanna RN) Ectopic: 0 (04/27/2016 22:30:Heather Hanna RN) Multiple Births: 0 (04/27/2016 22:30:Heather Hanna RN) Baby, Number in Womb: 1 (04/27/2016 22:30:Heather Hanna RN) CARE Primary Easement Worker: [facility] (04/27/2016 22:30:Kinsey Carmona RN) Month of 1st Visit: August 2015 (04/27/2016 22:30:Kinsey Carmona RN) Adequate Care: Yes (04/27/2016 22:30:Kinsey Carmona RN) Prepregnancy Weight (lb): 198 (04/27/2016 22:30:Heather Hanna RN) Prepregnancy Weight (kg): 90.0 (04/27/2016 22:30:QS system process) Height (in): 63 (04/29/2016 03:37:QS system process) Height (in): 63 (04/29/2016 03:21:QS system process) Height (in): 63 (04/28/2016 07:44:QS system process) Height (in): 63 (04/28/2016 07:20:QS system process) ALLERGIES Medication Allergy: No (04/27/2016 22:30:Kinsey Carmona RN) Medication Allergies: No Known Allergies (02/15/2013) (04/27/2016 22:29:QS system process) Latex Allergy: No Latex Allergies (04/27/2016 22:30:Kinsey Carmona RN) COMMUNICATION Primary Language: Thai (04/27/2016 22:30:Kinsey Carmona RN) Medical Tx Preferred Language: Thai (04/27/2016 22:30:Kinsey Carmona RN) Communication Barrier(s): None (04/27/2016 22:30:Kinsey Carmona RN) DEMOGRAPHICS Address: [address] [place] [id number] (04/27/2016 22:29:QS system process) Zipcode: [address] (04/27/2016 22:29:QS system process) Home (04/27/2016 22:29:QS system process) Work (04/27/2016 22:29:QS system process) SSN: [id number] (04/27/2016 22:29:QS system process) Next of Kin Name: QUINN LUO (04/27/2016 22:29:QS system process) Next of Kin (04/27/2016 22:29:QS system process) Next of Kin Relationship: SPO (04/27/2016 22:29:QS system process) Date of : 1990 (04/27/2016 22:29:QS system process) Marital Status: (04/27/2016 22:29:QS system process) Sex: Female (04/27/2016 22:29:QS system process) Race: (04/27/2016 22:29:QS system process) Ethnicity: Non- or (04/27/2016 22:29:QS system process) Tenriism: Nondenominational (04/27/2016 22:29:QS system process) DRUG AND ALCOHOL USE Alcohol: No (04/27/2016 22:30:Kinsey Carmona RN) Cigarettes: Former Smoker. [id number] (04/27/2016 22:30:Kinsey Carmona RN) Marijuana: No (04/27/2016 22:30:Kinsey Carmona RN) Cocaine: No (04/27/2016 22:30:Kinsey Carmona RN) Other Illicit Drugs: No (04/27/2016 22:30:Kinsey Carmona RN) VACCINE HISTORY Influenza Vaccine: Yes (04/27/2016 22:30:Kinsey Carmona RN) Pneumococcal Vaccine: No (04/27/2016 22:30:Kinsey Carmona RN) Tetanus Vaccine: No (04/27/2016 22:30:Kinsey Carmona RN) Tdap Vaccine: Yes (04/27/2016 22:30:Kinsey Carmona RN) Hepatitis B Vaccine: Yes (04/27/2016 22:30:Kinsey Carmona RN) Academic Manager: [facility] (04/27/2016 22:30:Kinsey Carmona RN) Feeding Preference: Breast (04/27/2016 22:30:Kinsey Carmona RN) Benefit of Breast Feed Discussed: Yes (04/27/2016 22:30:Kinsey Carmona RN) Circumcision: Yes (04/27/2016 22:30:Kinsey Carmona RN) Classes Attended: Yes (04/27/2016 22:30:Kinsey Carmona RN) Tubal Ligation: No (04/27/2016 22:30:Kinsey Carmona RN) Tubal Authorization Signed: N/A (04/27/2016 22:30:Kinsey Carmona RN) Consent: N/A (04/27/2016 22:30:Kinsey Carmona RN) Consent Signed: N/A (04/27/2016 22:30:Kinsey Carmona RN) Pain Management Plans: Epidural (04/27/2016 22:30:Kinsey Carmona RN) Plans for Labor and Delivery: None (04/27/2016 22:30:Kinsey Carmona RN) Support Person: Quinn Luo (04/27/2016 22:30:Kinsey Carmona RN) Support Person Relationship: (04/27/2016 22:30:Kinsey Carmona RN) Cultural/Spritual Practice: N/A (04/27/2016 22:30:Kinsey Carmona RN) Spir/Cult Dietary Needs: N/A (04/27/2016 22:30:Kinsey Carmona RN) LIVING SITUATION/DISCHARGE PLAN Living Arrangements: House (04/27/2016 22:30:Kinsey Carmona RN) Adequate Access to:: Electric; Heat; Refrigeration; Plumbing/Running water; Phone; Transportation (04/27/2016 22:30:Kinsey Carmona RN) WIC Program: No (04/27/2016 22:30:Kinsey Carmona RN) Discharge Physicians Assistant Person: Quinn (04/27/2016 22:30:Kinsey Carmona RN) Person to Help after Discharge: Quinn (04/27/2016 22:30:Kinsey Carmona RN) Currently Using Commun Resources: No (04/27/2016 22:30:Kinsey Carmona RN) Outside Agency/Travel Occupational Therapist: No (04/27/2016 22:30:Kinsey Carmona RN) Car Seat for Discharge: Yes (04/27/2016 22:30:Kinsey Carmona RN) Adoption Requested: No (04/27/2016 22:30:Kinsey Carmona RN) Pt Contact w/ Post : N/A (04/27/2016 22:30:Kinsey Carmona RN) LABS Blood Type: O Positive (04/27/2016 22:30:Kinsey Carmona RN) Antibody Screen: negative (04/27/2016 22:30:Heather Hanna RN) Rho(G) this : Not Applicable (04/27/2016 22:30:Heather Hanna RN) Hemoglobin: 11.7 L (04/27/2016 23:51:QS system process) Hematocrit: 34.3 L (04/27/2016 23:51:QS system process) MCV: 82 (04/27/2016 23:51:QS system process) Group Beta Strep: negative (04/27/2016 22:30:Kinsey Carmona RN) Gonorrhea: Negative (04/27/2016 22:30:Kinsey Carmona RN) Chlamydia: Negative (04/27/2016 22:30:Kinsey Carmona RN) RPR/VDRL: Nonreactive (04/27/2016 22:30:Kinsey Carmona RN) Hepatitis B: Negative (04/27/2016 22:30:Kinsey Carmona RN) Rubella: Non-Immune (04/27/2016 22:30:Kinsey Carmona RN) OB/PREVIOUS HISTORY Previous Procedures: None (04/27/2016 22:30:Kinsey Carmona RN) Current Procedures: Ultrasound; NST (04/27/2016 22:30:Kinsey Carmona RN) History of Previous : No (04/27/2016 22:30:Kinsey Carmona RN) History of Gestational Diabetes: No (04/27/2016 22:30:Kinsey Carmona RN) History of PIH: No (04/27/2016 22:30:Kinsey Carmona RN) History of Incompetent Cervix: No (04/27/2016 22:30:Kinsey Carmona RN) History of Placenta Previa/Abrup: No (04/27/2016 22:30:Kinsey Carmona RN) History of Macrosomia: No (04/27/2016 22:30:Kinsey Carmona RN) History of IUGR: No (04/27/2016 22:30:Kinsey Carmona RN) History of Hemorrhage: No (04/27/2016 22:30:Kinsey Carmona RN) History of Loss/Stillborn: No (04/27/2016 22:30:Kinsey Carmona RN) History of : No (04/27/2016 22:30:Kinsey Carmona RN) History of D (Rh) Sensitization: No (04/27/2016 22:30:Kinsey Carmona RN) History Recurrent Loss/Stillborn: No (04/27/2016 22:30:Kinsey Carmona RN) History Depression/PP Depression: No (04/27/2016 22:30:Kinsey Carmona RN) History of Uterine Anomaly/FELICIA: No (04/27/2016 22:30:Kinsey Carmona RN) History of Infertility: Yes (04/27/2016 22:30:Kinsey Carmona RN) History of ART Treatment: No (04/27/2016 22:30:Kinsey Carmona RN) History of FELICIA: No (04/27/2016 22:30:Kinsey Carmona RN) Comments Obstetrical History: g1 - current - clomid conception (04/27/2016 22:30:Kinsey Carmona RN) MEDICAL HISTORY Med Hx Diabetes: No (04/27/2016 22:30:Kinsey Carmona RN) Med Hx Hypertension: No (04/27/2016 22:30:Kinsey Carmona RN) Med Hx Heart Disease: No (04/27/2016 22:30:Kinsey Carmona RN) Med Hx Autoimmune Disorder: No (04/27/2016 22:30:Kinsey Carmona RN) Med Hx Kidney Disease/UTI: No (04/27/2016 22:30:Kinsey Carmona RN) Med Hx Neurologic/Epilepsy: No (04/27/2016 22:30:Kinsey Carmona RN) Med Hx Psychiatric Disorders: No (04/27/2016 22:30:Kinsey Carmona RN) Med Hx Hepatitis/Liver Disease: No (04/27/2016 22:30:Kinsey Carmona RN) Med Hx Varicosities/Phlebitis: No (04/27/2016 22:30:Kinsey Carmona RN) Med Hx Thyroid Dysfunction: No (04/27/2016 22:30:Kinsey Carmona RN) Med Hx Trauma/Violence: No (04/27/2016 22:30:Kinsey Carmona RN) Med Hx Blood Transfusion: No (04/27/2016 22:30:Kinsey Carmona RN) Med Hx Pulmonary (Asthma,TB): No (04/27/2016 22:30:Kinsey Carmona RN) Med Hx Breast: No (04/27/2016 22:30:Kinsey Carmona RN) Med Hx AGRICULTURAL EQUIPMENT OPERATOR Surgery: No (04/27/2016 22:30:Kinsey Carmona RN) Med Hx Hospitalization/Surgery: No (04/27/2016 22:30:Kinsey Carmona RN) Med Hx Anesthetic Complications: No (04/27/2016 22:30:Kinsey Carmona RN) Med Hx Abnormal Pap Smear: No (04/27/2016 22:30:Kinsey Carmona RN) Other Medical Diseases: No (04/27/2016 22:30:Kinsey Carmona RN) Med Hx Significant Family Hx: No (04/27/2016 22:30:Kinsey Carmona RN) Details of Med/Surg Hx: appendectomy (04/27/2016 22:30:Kinsey Carmona RN) INFECTIOUS HISTORY Inf Hx Gonorrhea: No (04/27/2016 22:30:Kinsey Carmona RN) Inf Hx Chlamydia: No (04/27/2016 22:30:Kinsey Carmona RN) Inf Hx Syphilis: No (04/27/2016 22:30:Kinsey Carmona RN) Inf Hx HIV/AIDS: No (04/27/2016 22:30:Kinsey Carmona RN) Inf Hx Human Papilloma Virus: No (04/27/2016 22:30:Kinsey Carmona RN) Inf Hx Pt/Partner Genital Herpes: No (04/27/2016 22:30:Kinsey Carmona RN) Inf Hx Tuberculosis/Exposure: No (04/27/2016 22:30:Kinsey Carmona RN) Inf Hx Hepatitis B,C: No (04/27/2016 22:30:Kinsey Carmona RN) Inf Hx Rash or Viral Illness: No (04/27/2016 22:30:Kinsey Carmona RN) GENETIC HISTORY Gen Hx Age >=35 at XAVIER: No (04/27/2016 22:30:Kinsey Carmona RN) Gen Hx Thalassemia: No (04/27/2016 22:30:Kinsey Carmona RN) Gen Hx Congenital Heart Defect: No (04/27/2016 22:30:Kinsey Carmona RN) Gen Hx Neural Tube Defect: No (04/27/2016 22:30:Kinsey Carmona RN) Gen Hx Down's Syndrome: No (04/27/2016 22:30:Kinsey Carmona RN) Gen Hx Gene-Sachs: No (04/27/2016 22:30:Kinsey Carmona RN) Gen Hx Mary: No (04/27/2016 22:30:Kinsey Carmona RN) Gen Hx Familial Dysautonomia: No (04/27/2016 22:30:Kinsey Carmona RN) Gen Hx Sickle Cell Disease/Trait: No (04/27/2016 22:30:Kinsey Carmona RN) Gen Hx Hemophilia/Blood Disorder: No (04/27/2016 22:30:Kinsey Carmona RN) Gen Hx Muscular Dystrophy: No (04/27/2016 22:30:Kinsey Carmona RN) Gen Hx Cystic Fibrosis: No (04/27/2016 22:30:Kinsey Carmona RN) Gen Hx Huntingtons Chorea: No (04/27/2016 22:30:Kinsey Carmona RN) Gen Hx Mental Retardation/Autism: No (04/27/2016 22:30:Kinsey Carmona RN) Gen Hx Tested for Fragile X: No (04/27/2016 22:30:Kinsey Carmona RN) Gen Hx Other Inher/Chromosomal: No (04/27/2016 22:30:Kinsey Carmona RN) Gen Hx Maternal Metabolic DO: No (04/27/2016 22:30:Kinsey Carmona RN) Gen Hx Pt Father or FOB Defect: No (04/27/2016 22:30:Kinsey Carmona RN) Gen Hx Other Genetic History: No (04/27/2016 22:30:Kinsey Carmona RN) Gen Hx Drugs/Meds since LMP: No (04/27/2016 22:30:Kinsey Carmona RN)
--- NOTE | 2016-04-30 10:46 | L&D Flow Sheet ---
LD Flowsheet Datetime Report Generated by CPN: 04/30/2016 10:45 Datetime: 04/30/2016 09:32 NBP Sys/Lashell/Mean (mmHg): 119 (QS system process) : 71 (QS system process) : 89 (QS system process) Pulse: 83 (QS system process) LaborFlag: Antepartum (QS system process) Datetime: 04/30/2016 07:50 Level of Consciousness: Fully Conscious (Vida Camp, RNC) DTR's/Clonus: DTRs 2+; No Clonus (Vida Camp, RNC) Headache: Denies (Vida Camp, RNC) Breath Sounds, Left: Clear and Equal (Vida Camp, RNC) Breath Sounds, Right: Clear and Equal (Vida Camp, RNC) Nausea/Vomiting: Denies (Vida Camp, RNC) RUQ Epigastric Pain: Denies (Vida Camp, RNC) Datetime: 04/30/2016 07:38 Comments: EFM off per MD order for pt to ambulate and eat breakfast (Vida Camp, RNC) Datetime: 04/30/2016 07:36 Communication Comments: Dr Miradna on unit strip reviewed plan discussed to hold further cervical ripening efforts until consultation with oncoming provider concerning plan. Pt and made aware of change in plan (Vida Camp, RNC) Datetime: 04/30/2016 07:30 Monitor Mode: External; Palpation (Vida Camp, RNC) Frequency (min): 7-10 (Vida Camp, RNC) Quality: Mild (Vida Camp, RNC) Duration (sec): 50-55 (Vida Camp, RNC) Pattern: Normal: <= 5 Contractions in 10 Minutes (Vida Camp, RNC) Resting Tone (Palpate): Relaxed (Vida Camp, RNC) Monitor Mode: External US; Auscultation (Vida Camp, RNC) FHR Baseline Rate : 130 (Vida Camp, RNC) FHR Baseline Changes: No Baseline Change (Vida Camp, RNC) Variability: Moderate 6-25 bpm (Vida Camp, RNC) Accelerations: 15X15 (Vida Camp, RNC) Decelerations: None (Vida Camp, RNC) Datetime: 04/30/2016 07:24 Communication: Provider Orders Received (Vida Camp, RNC) Communication Comments: Dr Miranda on unit strip reveiwed (Vida Camp, RNC) Datetime: 04/30/2016 07:22 NBP Sys/Lashell/Mean (mmHg): 114 (QS system process) : 61 (QS system process) : 80 (QS system process) Pulse: 72 (QS system process) Respirations: 16 (Vida Camp, RNC) Temperature (F): 98.4 (Vida Camp, RNC) Temperature (C): 36.9 (QS system process) Temperature Route: Oral ([place] Camp, RNC) LaborFlag: Antepartum (QS system process) Datetime: 04/30/2016 07:15 Instructional Method: Verbal; Patient Instructed; Family/Support Person Instructed; Verbalized Understanding (Vida Escobedo RNC) Plan of Care: Plan of Care Discussed (Vida Escobedo RNC) Labor/Induction: Cervical Ripening; Induction (Vida Escobedo, RNC) Teaching Comments: POC reviewed for cervical bulb placement , history ,allergies and efm tracing (Vida Escobedo, RNC) Communication: RN at Bedside; RN Reviewed Strip (Vida Escobedo RNC) Datetime: 04/30/2016 07:10 Communication: Report Given to @ [place], RN; care relinquished at this time. (Anahy Field, RN) Datetime: 04/30/2016 07:00 Monitor Mode: External; Palpation (Anahy Field, RN) Frequency (min): x2 (Anahy Field, RN) Quality: Mild (Anahy Field, RN) Duration (sec): 100-120 (Anahy Field, RN) Resting Tone (Palpate): Relaxed (Anahy Field, RN) Monitor Mode: External US (Anahy Field, RN) FHR Baseline Rate : 120 (Anahy Field, RN) Variability: Moderate 6-25 bpm (Anahy Field, RN) Accelerations: 15X15 (Anahy Field, RN) Decelerations: None (Anahy Field, RN) Datetime: 04/30/2016 06:52 NBP Sys/Lashell/Mean (mmHg): 124 (QS system process) : 62 (QS system process) : 87 (QS system process) Pulse: 84 (QS system process) LaborFlag: Antepartum (QS system process) Datetime: 04/30/2016 06:22 NBP Sys/Lashell/Mean (mmHg): 126 (QS system process) : 73 (QS system process) : 91 (QS system process) Pulse: 86 (QS system process) LaborFlag: Antepartum (QS system process) Datetime: 04/29/2016 23:44 IV/Blood Work: IV Infusing per Order; New IV Bag Hung (Anahy , RN) Datetime: 04/29/2016 23:01 Respirations: 16 (Anahy Mccormick RN) Temperature (F): 98.8 (Anahy Mccormick RN) Temperature (C): 37.1 (QS system process) Temperature Route: Axillary (Anahy Mccormick RN) LaborFlag: Antepartum (QS system process) Datetime: 04/29/2016 23:00 NBP Sys/Lashell/Mean (mmHg): 125 (QS system process) : 80 (QS system process) : 97 (QS system process) Pulse: 69 (QS system process) LaborFlag: Antepartum (QS system process) Datetime: 04/29/2016 22:54 Analgesics/Sedatives: Ambien (mg) @ (Annotations: 10 mg PO) (Anahy Mccormick RN)
--- NOTE | 2016-04-30 10:46 | L&D Discharge Summary ---
OB Discharge Summary Datetime Report Generated by CPN: 04/30/2016 10:45 DISCHARGE DIAGNOSIS Gestation: 38.5 Number of Babies in Womb: 1 Parity: 0
--- NOTE | 2016-04-30 10:46 | L&D Current Admission ---
Current Admit Datetime Report Generated by CPN: 04/30/2016 10:45 ADMISSION INFORMATION Current Admit Date/Time: 04/27/2016 23:42 (04/27/2016 22:56:Kinsey Carmona RN) Reason for Admission: Other (04/27/2016 22:56:Kinsey Carmona RN) Chief Complaint: Uterine Cramping (04/27/2016 22:56:Kinsey Caromna RN) Medications During : Vitamin (04/27/2016 22:56:Kinsey Carmona RN) EGA per Dates: 38.4 (04/27/2016 22:56:QS system process) Method of Arrival: Wheelchair (04/27/2016 22:56:Kinsey Carmona RN) Admitted From: Home (04/27/2016 22:56:Kinsey Carmona RN) Reason for Induction: Not Applicable (04/27/2016 22:56:Kinsey Carmona RN) Records Available: Yes (04/27/2016 22:56:Kinsey Carmona RN) General Admission Information: Reviewed; Updated (04/27/2016 22:56:Kinsey Carmona RN) General Admission Reviewed By: Teer Carmona RN (04/27/2016 22:56:Kinsey Carmona RN) BELONGINGS/ADVANCED DIRECTIVES Valuables/Personal Effects: Purse/Wallet (04/27/2016 22:56:Kinsey Carmona RN) Other Belongings: clothes (04/27/2016 22:56:Kinsey Carmona RN) Disposition of Belongings: Kept with Patient (04/27/2016 22:56:Kinsey Carmona RN) Advance Direct for Healthcare: No, and Wants No Information (04/27/2016 22:56:Kinsey Carmona RN) Durable Power of Electrical And Electronic Assembler: No (04/27/2016 22:56:Kinsey Carmona RN) Living Will: No (04/27/2016 22:56:Kinsey Carmona RN) Organ Donor: Yes (04/27/2016 22:56:Kinsey Carmona RN) Pt Rights Information Given: Yes (04/27/2016 22:56:Kinsey Carmona RN) Pt Understands Pt Rights: Yes (04/27/2016 22:56:Kinsey Carmona RN) LEARNING ASSESSMENT Knowledge Level: Understands L_D Process; Understands Care Activities; Had Pre-Hospital Education; Understands Diagnosis (04/27/2016 22:56:Kinsey Carmona RN) Barriers to Learning: None (04/27/2016 22:56:Kinsey Carmona RN) Learning Readiness: Motivated (04/27/2016 22:56:Kinsey Carmona RN) Learns Best By: 1 to 1 Instruction (04/27/2016 22:56:Kinsey Carmona RN) Learning Needs: Labor and Delivery Process (04/27/2016 22:56:Kinsey Carmona RN) DOMESTIC VIOLANCE SCREENING Dom Viol Threatened/Hurt: No (04/27/2016 22:56:Kinsey Carmona RN) Hx of Abuse/Neglect past 2yrs: No (04/27/2016 22:56:Kinsey Carmona RN) Feel Unsafe Going Home: No (04/27/2016 22:56:Kinsey Carmona RN) Addt'l Observ Indicating Abuse: No (04/27/2016 22:56:Kinsey Carmona RN) Reason Unable to Complete Screen: N/A, Screen Completed (04/27/2016 22:56:Kinsey Carmona RN) Considered Personal Harm/Suicide: No (04/27/2016 22:56:Kinsey Carmona RN) NUTRITIONAL/FUNCTIONAL SCREENING Problem with Appetite >5 Days: No (04/27/2016 22:56:Kinsey Carmona RN) Chew/Swallow Difficulties: No (04/27/2016 22:56:Kinsey Carmona RN) Inappropriate Wt Gain/Loss: No (04/27/2016 22:56:Kinsey Carmona RN) Presence Skin Breakdown/Ulcer: No (04/27/2016 22:56:Kinsey Carmona RN) Special Diet: No (04/27/2016 22:56:Kinsey Carmona RN) Pt Requests Solutions Development Analyst Visit: No (04/27/2016 22:56:Kinsey Carmona RN) Hx of Any of the Following?: N/A (04/27/2016 22:56:Kinsey Carmona RN) New Diagnosis of: N/A (04/27/2016 22:56:Kinsey Carmona RN) Requires Assist w/Ambulation: No (04/27/2016 22:56:Kinsey Carmona RN) Uses Assist Device to Ambulate: No (04/27/2016 22:56:Kinsey Carmona RN) Pt Requires Help w/ADL's: No (04/27/2016 22:56:Kinsey Carmona RN)
--- NOTE | 2016-04-30 10:46 | L&D Admission Assessment ---
LD ADM ASMT Datetime Report Generated by CPN: 04/30/2016 10:45 Assessment Type: Ongoing Assessment (04/30/2016 07:50:DURGA Ho) Assessment Type: Ongoing Assessment (04/29/2016 19:27:Anahy Mccormick RN) Assessment Type: Triage (04/28/2016 19:24:Anahy Mccormick RN) Weight (lb): 209 (04/29/2016 03:37:QS system process) Weight (lb): 209 (04/29/2016 03:21:QS system process) Weight (kg): 95.0 (04/29/2016 03:37:QS system process) Weight (kg): 95.0 (04/29/2016 03:21:QS system process) Total Wt Gain (lb): 11 (04/29/2016 03:37:QS system process) Total Wt Gain (lb): 11 (04/29/2016 03:21:QS system process) Wt Gain (kg): 5.0 (04/29/2016 03:37:QS system process) Wt Gain (kg): 5.0 (04/29/2016 03:21:QS system process) BMI: 37.0 (04/29/2016 03:37:QS system process) BMI: 37.0 (04/29/2016 03:21:QS system process) Pain Scale: 0 (04/29/2016 13:30:Vicki Ruiz RN) Pain Scale: 0 (04/29/2016 11:05:Vicki Ruiz RN) Frequency (min): 7-10 (04/30/2016 07:30:DURGA Ho) Frequency (min): x2 (04/30/2016 07:00:Anahy Field, RN) Frequency (min): 2-3 (04/29/2016 22:00:Anahy Field, RN) Frequency (min): 2-4 (04/29/2016 21:45:Anahy Field, RN) Frequency (min): 2-2.5 (04/29/2016 21:30:Anahy Field, RN) Frequency (min): 2-2.5 (04/29/2016 21:15:Anahy Field, RN) Frequency (min): 2-4 (04/29/2016 21:00:Anahy Field, RN) Frequency (min): 2-3 (04/29/2016 20:45:Anahy Field, RN) Frequency (min): 2-3 (04/29/2016 20:30:Anahy Field, RN) Frequency (min): 2-2.5 (04/29/2016 20:15:Anahy Field, RN) Frequency (min): 2-2.5 (04/29/2016 20:00:Anahy Field, RN) Frequency (min): 2-2.5 (04/29/2016 19:45:Anahy Field, RN) Frequency (min): Irregular (04/29/2016 19:30:Aanhy Field, RN) Frequency (min): Irregular (04/29/2016 19:15:Anahy Field, RN) Frequency (min): irreg (04/29/2016 18:45:Vicki Sara, RN) Frequency (min): irreg (04/29/2016 18:30:Vicki Sara, RN) Frequency (min): irreg (04/29/2016 18:15:Vicki Sara, RN) Frequency (min): irreg (04/29/2016 18:00:Vicki Sara, RN) Frequency (min): irreg (04/29/2016 17:45:Vicki Sara, RN) Frequency (min): irreg (04/29/2016 17:30:Vicki Sara, RN) Frequency (min): irreg (04/29/2016 17:15:Vicki Sara, RN) Frequency (min): 2-4 (04/29/2016 17:00:Vicki Sara, RN) Frequency (min): irreg (04/29/2016 16:45:Vicki Sara, RN) Frequency (min): 2-4 (04/29/2016 16:30:Vicki Sara, RN) Frequency (min): 2-4 (04/29/2016 16:15:Vicki Sara, RN) Frequency (min): 3-5 (04/29/2016 16:00:Vicki Sara, RN) Frequency (min): occ (04/29/2016 15:45:Vicki Sara, RN) Frequency (min): irreg (04/29/2016 15:30:Vicki Sara, RN) Frequency (min): occ (04/29/2016 15:15:Vicki Sara, RN) Frequency (min): occ (04/29/2016 15:00:Vicki Sara, RN) Frequency (min): occ (04/29/2016 14:45:Vicki Sara, RN) Frequency (min): occ (04/29/2016 14:30:Vicki Sara, RN) Frequency (min): occ (04/29/2016 14:00:Vicki Sara, RN) Frequency (min): occ (04/29/2016 13:30:Vicki Sara, RN) Frequency (min): occ (04/29/2016 13:00:Vicki Sara, RN) Frequency (min): occ (04/29/2016 12:30:Vicki Sara, RN) Frequency (min): occ (04/29/2016 12:00:Vicki Sara, RN) Frequency (min): irreg (04/29/2016 11:30:Vicki Sara, RN) Frequency (min): irreg (04/29/2016 11:00:Vicki Sara, RN) Frequency (min): irreg (04/29/2016 10:30:Vicki Sara, RN) Frequency (min): 3-5 (04/29/2016 10:00:Vicki Sara, RN) Frequency (min): irrewg (04/29/2016 08:27:Vicki Sara, RN) Frequency (min): 2-4 (04/29/2016 08:00:Vicki Sara, RN) Frequency (min): irreg (04/29/2016 07:30:Vicki Sara, RN) Frequency (min): 2.5-6.5 (04/29/2016 07:00:Anahy Field, RN) Frequency (min): 2-3.5 (04/29/2016 06:30:Anahy Field, RN) Frequency (min): 4-7 (04/29/2016 06:00:Anahy Field, RN) Frequency (min): Irregular (04/29/2016 05:30:Anahy Field, RN) Frequency (min): 3-6.5 (04/29/2016 05:00:Anahy Field, RN) Frequency (min): Irregular (04/29/2016 04:30:Anahy Field, RN) Frequency (min): irregular (04/29/2016 04:00:Anahy Field, RN) Frequency (min): Irregular (04/29/2016 03:30:Anahy Field, RN) Frequency (min): Irregular (04/29/2016 03:00:Anahy Field, RN) Frequency (min): 11 (04/29/2016 02:30:Anahy Field, RN) Frequency (min): Irregular (04/29/2016 02:00:Anahy Field, RN) Frequency (min): 7 (04/29/2016 01:30:Anahy Field, RN) Frequency (min): Irregular (04/29/2016 01:00:Anahy Field, RN) Frequency (min): 2-3 (04/29/2016 00:30:Anahy Field, RN) Frequency (min): Irritability (04/29/2016 00:00:Anahy Field, RN) Frequency (min): Irritability (04/28/2016 23:30:Anahy Field, RN) Frequency (min): Irritability (04/28/2016 23:00:Anahy Field, RN) Frequency (min): Irritability (04/28/2016 22:30:Anahy Field, RN) Frequency (min): Irritability (04/28/2016 22:00:Anahy Field, RN) Frequency (min): Irritability (04/28/2016 21:30:Anahy Mccormick, RN) Frequency (min): Irritability (04/28/2016 21:00:Anahy Mccormick, RN) Frequency (min): Irritability (04/28/2016 19:30:Anahy Mccormick, RN) Frequency (min): irregular (04/28/2016 19:00:Heather Hanna, RN) Frequency (min): irregular (04/28/2016 18:30:Heather Hanna, RN) Frequency (min): irregular (04/28/2016 18:00:Heather Baicandelario, RN) Frequency (min): irregular (04/28/2016 17:30:Heather Baicandelario, RN) Frequency (min): irregular (04/28/2016 16:59:Heather Baicandelario, RN) Frequency (min): irregular (04/28/2016 16:29:Heather Baicandelario, RN) Frequency (min): irregular (04/28/2016 15:59:Heather Baicandelario, RN) Frequency (min): irregular (04/28/2016 15:29:Heather Baicandelario, RN) Frequency (min): irregular (04/28/2016 14:59:Heather Baidy, RN) Frequency (min): irregular (04/28/2016 14:30:Heather Baidy, RN) Frequency (min): irregular (04/28/2016 14:00:Heather Baidy, RN) Frequency (min): irregular (04/28/2016 13:30:Heather Baidy, RN) Frequency (min): irregular (04/28/2016 13:00:Heather Baicandelario, RN) Frequency (min): irregular (04/28/2016 12:30:Heather Baidy, RN) Frequency (min): irregular (04/28/2016 12:00:Heather Baidy, RN) Frequency (min): irregular (04/28/2016 11:30:Heather Baidy, RN) Frequency (min): irregular (04/28/2016 11:00:Heather Baidy, RN) Duration (sec): 50-55 (04/30/2016 07:30:DURGA Ho) Duration (sec): 100-120 (04/30/2016 07:00:Anahy Field, RN) Duration (sec): 50-60 (04/29/2016 22:00:Anahy Mccormick RN) Duration (sec): 50-60 (04/29/2016 21:45:Anahy Mccormick RN) Duration (sec): 50-60 (04/29/2016 21:30:Anahy Mccormick RN) Duration (sec): 50-60 (04/29/2016 21:15:Anahy Mccormick RN) Duration (sec): 50-60 (04/29/2016 21:00:Anahy Mccormick RN) Duration (sec): 50-60 (04/29/2016 20:45:Anahy Mccormick RN) Duration (sec): 60-70 (04/29/2016 20:30:Anahy Mccormick RN) Duration (sec): 50-60 (04/29/2016 20:15:Anahy Mccormick RN) Duration (sec): 50-80 (04/29/2016 20:00:Anahy Mccormick RN) Duration (sec): 60-90 (04/29/2016 19:45:Anahy Mccormick RN) Duration (sec): 60-80 (04/29/2016 17:00:Vicki Ruiz, RN) Duration (sec): 70-90 (04/29/2016 16:30:Vicki Ruiz, RN) Duration (sec): 60-80 (04/29/2016 16:15:Vicki Ruiz, RN) Duration (sec): 60-90 (04/29/2016 16:00:Vicki Ruiz, RN) Duration (sec): 60-90 (04/29/2016 10:00:Vicki Ruiz, RN) Duration (sec): 60-80 (04/29/2016 08:00:Vicki Ruiz, RN) Duration (sec): 60-80 (04/29/2016 07:00:Anahy Mccormick RN) Duration (sec): 60-90 (04/29/2016 06:30:Anahy Mccormick RN) Duration (sec): 70-100 (04/29/2016 06:00:Anahy Mccormick RN) Duration (sec): 50-110 (04/29/2016 05:00:Anahy Field, RN) Duration (sec): 70-100 (04/29/2016 02:30:Anahy Mccormick RN) Duration (sec): 50-80 (04/29/2016 01:30:Anahy Mccormick RN) Duration (sec): 50-110 (04/29/2016 00:30:Anahy Mccormick RN) Quality: Mild (04/30/2016 07:30:DURGA Ho) Quality: Mild (04/30/2016 07:00:Anahy Mccormick RN) Quality: Mild (04/29/2016 22:00:Anahy Mccormick RN) Quality: Mild (04/29/2016 21:45:Anahy Mccormick RN) Quality: Mild (04/29/2016 21:30:Anahy Mccormick RN) Quality: Mild (04/29/2016 21:15:Anahy Mccormick RN) Quality: Mild (04/29/2016 21:00:Anahy Mccormick RN) Quality: Mild (04/29/2016 20:45:Anahy Mccormick RN) Quality: Mild (04/29/2016 20:30:Anahy Mccormick RN) Quality: Mild (04/29/2016 20:15:Anahy Mccormick RN) Quality: Mild (04/29/2016 20:00:Anahy Mcocrmick RN) Quality: Mild (04/29/2016 19:45:Anahy Mccormick RN) Quality: Mild (04/29/2016 19:30:Anahy Mccormick RN) Quality: Mild (04/29/2016 19:15:Anahy Mccormick RN) Quality: Mild (04/29/2016 18:45:Vicki Ruiz RN) Quality: Mild (04/29/2016 18:30:Vicki Ruiz, RN) Quality: Mild (04/29/2016 18:15:Vicik Ruiz, RN) Quality: Mild (04/29/2016 18:00:Vicki Ruiz, RN) Quality: Mild (04/29/2016 17:45:Vicki Ruiz, RN) Quality: Mild (04/29/2016 17:30:Vicki Ruiz, RN) Quality: Mild (04/29/2016 17:15:Vicki Ruiz, RN) Quality: Mild (04/29/2016 17:00:Vicki Sara, RN) Quality: Mild (04/29/2016 16:45:Vicki Sara, RN) Quality: Mild (04/29/2016 16:30:Vicki Sara, RN) Quality: Mild (04/29/2016 16:15:Vicki Sara, RN) Quality: Mild (04/29/2016 16:00:Vicki Sara, RN) Quality: Mild (04/29/2016 15:45:Vicki Sara, RN) Quality: Mild (04/29/2016 15:30:Vicki Sara, RN) Quality: Mild (04/29/2016 15:15:Vicki Sara, RN) Quality: Mild (04/29/2016 15:00:Vicki Sara, RN) Quality: Mild/Moderate (04/29/2016 14:45:Vicki Sara, RN) Quality: Mild (04/29/2016 14:30:Vicki Sara, RN) Quality: Mild (04/29/2016 14:00:Vicki Sara, RN) Quality: Mild (04/29/2016 13:30:Vicki Sara, RN) Quality: Mild (04/29/2016 13:00:Vicki Sara, RN) Quality: Mild (04/29/2016 12:30:Vicki Sara, RN) Quality: Mild (04/29/2016 12:00:Vicki Sara, RN) Quality: Mild (04/29/2016 11:30:Vicki Sara, RN) Quality: Mild (04/29/2016 11:00:Vicki Sara, RN) Quality: Mild (04/29/2016 10:30:Vicki Sara, RN) Quality: Mild (04/29/2016 10:00:Vicki Sara, RN) Quality: Mild (04/29/2016 08:27:Vicki Sara, RN) Quality: Mild (04/29/2016 08:00:Vicki Sara, RN) Quality: Mild (04/29/2016 07:30:Vicki Sara, RN) Quality: Mild (04/29/2016 07:00:Anahy Mccormick RN) Quality: Mild (04/29/2016 06:30:Anahy Field, RN) Quality: Mild (04/29/2016 06:00:Anahy Mccormick, RN) Quality: Mild (04/29/2016 05:30:Anahy Mccormick, RN) Quality: Mild (04/29/2016 05:00:Anahy Mccormick, RN) Quality: Mild (04/29/2016 04:30:Anahy Mccormick, RN) Quality: Mild (04/29/2016 04:00:Anahy Mccormick, RN) Quality: Mild (04/29/2016 03:30:Anahy Mccormick, RN) Quality: Mild (04/29/2016 03:00:Anahy Mccormick, RN) Quality: Mild (04/29/2016 02:30:Anahy Mccormick, RN) Quality: Mild (04/29/2016 02:00:Anahy Mccormick RN) Quality: Mild (04/29/2016 01:30:Anahy Mccormick, RN) Quality: Mild (04/29/2016 01:00:Anahy Mccormick RN) Quality: Mild (04/29/2016 00:30:Anahy Mccormick RN) Quality: Mild (04/29/2016 00:00:Anahy Mccormick RN) Quality: Mild (04/28/2016 23:30:Anahy Mccormick, RN) Quality: Mild/Moderate (04/28/2016 23:00:Anahy Mccormick RN) Quality: Mild (04/28/2016 22:30:Anahy Mccormick, RN) Quality: Mild (04/28/2016 22:00:Anahy Mccormick RN) Quality: Mild (04/28/2016 21:30:Anahy Mccormick RN) Quality: Mild (04/28/2016 21:00:Anahy Mccormick, RN) Quality: Mild (04/28/2016 19:30:Anahy Mccormick RN) Quality: Mild (04/28/2016 19:00:Heather Hanna RN) Quality: Mild (04/28/2016 18:30:Heather Hanna RN) Quality: Mild (04/28/2016 18:00:Heather Hanna RN) Quality: Mild (04/28/2016 17:30:Heather Hanna RN) Quality: Mild (04/28/2016 16:59:Heather Hanna RN) Quality: Mild (04/28/2016 16:29:Heather Hanna RN) Quality: Mild (04/28/2016 15:59:Heather Hanna RN) Quality: Mild (04/28/2016 15:29:Heather Hanna RN) Quality: Mild (04/28/2016 14:59:Heather Hanna RN) Quality: Mild (04/28/2016 14:30:Heather Hanna RN) Quality: Mild (04/28/2016 14:00:Heather Hanna RN) Quality: Mild (04/28/2016 13:30:Heather Hanna RN) Quality: Mild (04/28/2016 13:00:Heather Hanna RN) Quality: Mild (04/28/2016 12:30:Heather Hanna RN) Quality: Mild (04/28/2016 12:00:Heather Hanna RN) Quality: Mild (04/28/2016 11:30:Heather Hanna RN) Quality: Mild (04/28/2016 11:00:Heather Hanna RN) Pattern: Normal: <= 5 Contractions in 10 Minutes (04/30/2016 07:30:DURGA Ho) Pattern: Normal: <= 5 Contractions in 10 Minutes (04/29/2016 07:00:Anahy Mccormick RN) Pattern: Normal: <= 5 Contractions in 10 Minutes (04/29/2016 06:30:Anahy Mccormick RN) Pattern: Normal: <= 5 Contractions in 10 Minutes (04/29/2016 06:00:Anahy Mccormick RN) Pattern: Normal: <= 5 Contractions in 10 Minutes (04/29/2016 05:30:Anahy Mccormick RN) Pattern: Normal: <= 5 Contractions in 10 Minutes (04/29/2016 05:00:Anahy Mccormick RN) Pattern: Normal: <= 5 Contractions in 10 Minutes (04/29/2016 04:30:Anahy Mccormick RN) Pattern: Normal: <= 5 Contractions in 10 Minutes (04/29/2016 04:00:Anahy Mccormick RN) Pattern: Normal: <= 5 Contractions in 10 Minutes (04/29/2016 03:30:Anahy Mccormick RN) Pattern: Normal: <= 5 Contractions in 10 Minutes (04/29/2016 03:00:Anahy Mccormick RN) Pattern: Normal: <= 5 Contractions in 10 Minutes (04/29/2016 02:30:Anahy Mccormick RN) Pattern: Normal: <= 5 Contractions in 10 Minutes (04/29/2016 02:00:Anahy Mccormick RN) Pattern: Normal: <= 5 Contractions in 10 Minutes (04/29/2016 01:30:Anahy Mccormick RN) Pattern: Normal: <= 5 Contractions in 10 Minutes (04/29/2016 01:00:Anahy Mccormick RN) Pattern: Normal: <= 5 Contractions in 10 Minutes (04/29/2016 00:30:Anahy Mccormick RN) Pattern: Normal: <= 5 Contractions in 10 Minutes (04/29/2016 00:00:Anahy Mccormick RN) Pattern: Normal: <= 5 Contractions in 10 Minutes (04/28/2016 23:30:Anahy Mccormick RN) Pattern: Normal: <= 5 Contractions in 10 Minutes (04/28/2016 23:00:Anahy Mccormick RN) Pattern: Normal: <= 5 Contractions in 10 Minutes (04/28/2016 22:30:Anahy Mccormick RN) Pattern: Normal: <= 5 Contractions in 10 Minutes (04/28/2016 22:00:Anahy Mccormick RN) Pattern: Normal: <= 5 Contractions in 10 Minutes (04/28/2016 21:30:Anahy Mccormick RN) Pattern: Normal: <= 5 Contractions in 10 Minutes (04/28/2016 21:00:Anahy Mccormick RN) Pattern: Normal: <= 5 Contractions in 10 Minutes (04/28/2016 19:30:Anahy Mccormick RN) Pattern: Normal: <= 5 Contractions in 10 Minutes (04/28/2016 19:00:Heather Hanna RN) Pattern: Normal: <= 5 Contractions in 10 Minutes (04/28/2016 18:30:Heather Hanna RN) Pattern: Normal: <= 5 Contractions in 10 Minutes (04/28/2016 18:00:Heather Hanna RN) Pattern: Normal: <= 5 Contractions in 10 Minutes (04/28/2016 17:30:Heather Hanna RN) Pattern: Normal: <= 5 Contractions in 10 Minutes (04/28/2016 16:59:Heather Hanna RN) Pattern: Normal: <= 5 Contractions in 10 Minutes (04/28/2016 16:29:Heather Hanna RN) Pattern: Normal: <= 5 Contractions in 10 Minutes (04/28/2016 15:59:Heather Hanna RN) Pattern: Normal: <= 5 Contractions in 10 Minutes (04/28/2016 15:29:Heather Hanna RN) Pattern: Normal: <= 5 Contractions in 10 Minutes (04/28/2016 14:59:Heather Hanna RN) Pattern: Normal: <= 5 Contractions in 10 Minutes (04/28/2016 14:30:Heather Hanna RN) Pattern: Normal: <= 5 Contractions in 10 Minutes (04/28/2016 14:00:Heather Hanna RN) Pattern: Normal: <= 5 Contractions in 10 Minutes (04/28/2016 13:30:Heather Hanna RN) Pattern: Normal: <= 5 Contractions in 10 Minutes (04/28/2016 13:00:Heather Hanna RN) Pattern: Normal: <= 5 Contractions in 10 Minutes (04/28/2016 12:30:Heather Hanna RN) Pattern: Normal: <= 5 Contractions in 10 Minutes (04/28/2016 12:00:Heather Hanna RN) Pattern: Normal: <= 5 Contractions in 10 Minutes (04/28/2016 11:30:Heather Hanna RN) Pattern: Normal: <= 5 Contractions in 10 Minutes (04/28/2016 11:00:Heather Hanna RN) Resting Tone [place]offe[place]: Relaxed (04/30/2016 07:30:DURGA Ho) Resting Tone [place]offe[place]: Relaxed (04/30/2016 07:00:Anahy Mccormick RN) Resting Tone [place]offe[place]: Relaxed (04/29/2016 22:00:Anahy Mccormick RN) Resting Tone [place]offe[place]: Relaxed (04/29/2016 21:45:Anahy Mccormick RN) Resting Tone [place]offe[place]: Relaxed (04/29/2016 21:30:Anahy Mccormick RN) Resting Tone [place]offe[place]: Relaxed (04/29/2016 21:15:Anahy Field, RN) Resting Tone [place]offe[place]: Relaxed (04/29/2016 21:00:Anahy Mccormick, RN) Resting Tone [place]offe[place]: Relaxed (04/29/2016 20:45:Anahy Mccormick, RN) Resting Tone [place]offe[place]: Relaxed (04/29/2016 20:30:Anahy Mccormick, RN) Resting Tone [place]offe[place]: Relaxed (04/29/2016 20:15:Anahy Mccormick, RN) Resting Tone [place]offe[place]: Relaxed (04/29/2016 20:00:Anahy Mccormick, RN) Resting Tone [place]offe[place]: Relaxed (04/29/2016 19:45:Anahy Mccormick RN) Resting Tone [place]offe[place]: Relaxed (04/29/2016 19:30:Anahy Mccormick, RN) Resting Tone [place]offe[place]: Relaxed (04/29/2016 19:15:Anahy Mccormick, RN) Resting Tone [place]offe[place]: Relaxed (04/29/2016 18:45:Vicki Ruiz, RN) Resting Tone [place]offe[place]: Relaxed (04/29/2016 18:30:Vicki Ruiz, RN) Resting Tone [place]offe[place]: Relaxed (04/29/2016 18:15:Vicki Sara, RN) Resting Tone [place]offeen: Relaxed (04/29/2016 18:00:Vicki Sara, RN) Resting Tone [place]offeen: Relaxed (04/29/2016 17:45:Vicki Sara, RN) Resting Tone [place]offe[place]: Relaxed (04/29/2016 17:30:Vicki Sara, RN) Resting Tone [place]offeen: Relaxed (04/29/2016 17:15:Vicki Sara, RN) Resting Tone [place]offeen: Relaxed (04/29/2016 17:00:Vicki Sara, RN) Resting Tone [place]offeen: Relaxed (04/29/2016 16:45:Vicki Sara, RN) Resting Tone [place]offeen: Relaxed (04/29/2016 16:30:Vicki Sara, RN) Resting Tone [place]offeen: Relaxed (04/29/2016 16:15:Vicki Sara, RN) Resting Tone [place]offeen: Relaxed (04/29/2016 16:00:Vicki Sara, RN) Resting Tone [place]offeen: Relaxed (04/29/2016 15:45:Vicki Sara, RN) Resting Tone [place]offeen: Relaxed (04/29/2016 15:30:Vicki Sara, RN) Resting Tone [place]offe[place]: Relaxed (04/29/2016 15:15:Vicki Sara, RN) Resting Tone [place]offe[place]: Relaxed (04/29/2016 15:00:Vicki Sara, RN) Resting Tone [place]offeen: Relaxed (04/29/2016 14:45:Vicki Sara, RN) Resting Tone [place]offeen: Relaxed (04/29/2016 14:30:Vicki Sara, RN) Resting Tone [place]offeen: Relaxed (04/29/2016 14:00:Vicki Sara, RN) Resting Tone [place]offeen: Relaxed (04/29/2016 13:30:Vicki Sara, RN) Resting Tone Coffeen: Relaxed (04/29/2016 13:00:Vicki Sara, RN) Resting Tone Coffeen: Relaxed (04/29/2016 12:30:Vicki Sara, RN) Resting Tone Coffeen: Relaxed (04/29/2016 12:00:Vicki Sara, RN) Resting Tone Coffeen: Relaxed (04/29/2016 11:30:Vicki Sara, RN) Resting Tone Coffeen: Relaxed (04/29/2016 11:00:Vicki Sara, RN) Resting Tone [place]offeen: Relaxed (04/29/2016 10:30:Vicki Sara, RN) Resting Tone Coffeen: Relaxed (04/29/2016 10:00:Vicki Sara, RN) Resting Tone Coffeen: Relaxed (04/29/2016 08:27:Vicki Sara, RN) Resting Tone Coffeen: Relaxed (04/29/2016 08:00:Vicki Sara, RN) Resting Tone Coffeen: Relaxed (04/29/2016 07:30:Vicki Sara, RN) Resting Tone Coffeen: Relaxed (04/29/2016 07:00:Anahy Mccormick RN) Resting Tone [place]offeen: Relaxed (04/29/2016 06:30:Anahy Mccormick RN) Resting Tone [place]offe[place]: Relaxed (04/29/2016 06:00:Anahy Mccormick RN) Resting Tone [place]offe[place]: Relaxed (04/29/2016 05:30:Anahy Mccormick RN) Resting Tone [place]offe[place]: Relaxed (04/29/2016 05:00:Anahy Mccormick RN) Resting Tone [place]offeen: Relaxed (04/29/2016 04:30:Anahy Mccormick RN) Resting Tone [place]offeen: Relaxed (04/29/2016 04:00:Anahy Mccormick RN) Resting Tone [place]offe[place]: Relaxed (04/29/2016 03:30:Anahy Mccormick RN) Resting Tone [place]offe[place]: Relaxed (04/29/2016 03:00:Anahy Mccormick RN) Resting Tone [place]offeen: Relaxed (04/29/2016 02:30:Anahy Mccormick RN) Resting Tone [place]offeen: Relaxed (04/29/2016 02:00:Anayh Mccormick RN) Resting Tone [place]offeen: Relaxed (04/29/2016 01:30:Anahy Mccormick RN) Resting Tone [place]offe[place]: Relaxed (04/29/2016 01:00:Anahy Mccormick RN) Resting Tone [place]offe[place]: Relaxed (04/29/2016 00:30:Anahy Mccormick RN) Resting Tone [place]offe[place]: Relaxed (04/29/2016 00:00:Anahy Mccormick RN) Resting Tone [place]offe[place]: Relaxed (04/28/2016 23:30:Anahy Mccormick RN) Resting Tone [place]offe[place]: Relaxed (04/28/2016 23:00:Anahy Mccormick RN) Resting Tone [place]offe[place]: Relaxed (04/28/2016 22:30:Anahy Mccormick RN) Resting Tone [place]offe[place]: Relaxed (04/28/2016 22:00:Anahy Mccormick RN) Resting Tone [place]offe[place]: Relaxed (04/28/2016 21:30:Anahy Mccormick RN) Resting Tone [place]offe[place]: Relaxed (04/28/2016 21:00:Anahy Mccormick RN) Resting Tone [place]offe[place]: Relaxed (04/28/2016 19:30:Anahy Mccormick RN) Resting Tone [place]offe[place]: Relaxed (04/28/2016 19:00:Heather Hanna RN) Resting Tone [place]offeen: Relaxed (04/28/2016 18:30:Heather Hanna RN) Resting Tone [place]offe[place]: Relaxed (04/28/2016 18:00:Heather Hanna RN) Resting Tone [place]offeen: Relaxed (04/28/2016 17:30:Heather Hanna RN) Resting Tone [place]offe[place]: Relaxed (04/28/2016 16:59:Heather Hanna RN) Resting Tone [place]offeen: Relaxed (04/28/2016 16:29:Heather Hanna RN) Resting Tone [place]offeen: Relaxed (04/28/2016 15:59:Heather Hanna RN) Resting Tone [place]offe[place]: Relaxed (04/28/2016 15:29:Heather Hanna RN) Resting Tone [place]offe[place]: Relaxed (04/28/2016 14:59:Heather Hanna RN) Resting Tone [place]offe[place]: Relaxed (04/28/2016 14:30:Heather Hanna RN) Resting Tone [place]offeen: Relaxed (04/28/2016 14:00:Heather Hanna RN) Resting Tone [place]offeen: Relaxed (04/28/2016 13:30:Heather Hanna RN) Resting Tone [place]offe[place]: Relaxed (04/28/2016 13:00:Heather Hanna RN) Resting Tone [place]offeen: Relaxed (04/28/2016 12:30:Heather Hanna RN) Resting Tone [place]offe[place]: Relaxed (04/28/2016 12:00:Heather Hanna RN) Resting Tone [place]offeen: Relaxed (04/28/2016 11:30:Heather Hanna RN) Resting Tone [place]offeen: Relaxed (04/28/2016 11:00:Heather Hanna RN) Dilatation (cm): 0.5 (04/29/2016 22:03:Anahy Mccormick RN) Dilatation (cm): 1.0 (04/28/2016 19:42:Anahy Mccormick RN) Effacement (%): 50 (04/29/2016 22:03:Anahy Mccormick RN) Effacement (%): 50 (04/28/2016 19:42:Anahy Mccormick RN) Station: -2 (04/29/2016 22:03:Anahy Mccormick RN) Station: -2 (04/28/2016 19:42:Anahy Mccormick RN) Level of Consciousness: Fully Conscious (04/30/2016 07:50:DURGA Ho) Level of Consciousness: Fully Conscious (04/29/2016 19:27:Anahy Mccormick RN) Level of Consciousness: Fully Conscious (04/29/2016 07:24:Vicki Ruiz RN) Level of Consciousness: Fully Conscious (04/28/2016 19:24:Anahy Mccormick RN) DTR's/Clonus: DTRs 2+; No Clonus (04/30/2016 07:50:DURGA Ho) DTR's/Clonus: DTRs 1+; No Clonus (04/29/2016 19:27:Anahy Mccormick RN) DTR's/Clonus: DTRs 1+; No Clonus (04/28/2016 19:24:Anahy Mccormick RN) Headache: Denies (04/30/2016 07:50:DURGA Ho) Headache: Denies (04/29/2016 19:27:Anahy Mccormick RN) Headache: Denies (04/29/2016 07:24:Vicki Ruiz RN) Headache: Denies (04/28/2016 19:24:Anahy Mccormick RN) Dizziness: No (04/30/2016 07:50:DURGA Ho) Dizziness: No (04/29/2016 19:27:Anahy Mccormick RN) Dizziness: No (04/29/2016 07:24:Vicki Ruiz RN) Dizziness: No (04/28/2016 19:24:Anahy Mccormick RN) Blurred Vision: No (04/30/2016 07:50:DURGA Ho) Blurred Vision: No (04/29/2016 19:27:Anahy Mccormick RN) Blurred Vision: No (04/29/2016 07:24:Vicki Ruiz RN) Blurred Vision: No (04/28/2016 19:24:Anahy Mccormick RN) Extremity Numbness/Tingling : None (04/30/2016 07:50:DURGA Ho) Extremity Numbness/Tingling : None (04/29/2016 19:27:Anahy Mccormick RN) Extremity Numbness/Tingling : None (04/29/2016 07:24:Vicki Ruiz RN) Extremity Numbness/Tingling : None (04/28/2016 19:24:Anahy Mccormick RN) Extremity Movement: Full Range of Motion (04/30/2016 07:50:DURGA Ho) Extremity Movement: Full Range of Motion (04/29/2016 19:27:Anahy Mccormick RN) Extremity Movement: Full Range of Motion (04/29/2016 07:24:Vicki Ruiz RN) Extremity Movement: Full Range of Motion (04/28/2016 19:24:Anahy Mccormick RN) Heart Rhythm: Regular (Annotations: s1s2 noted, no arrythmias or murmurs auscultated ) (04/30/2016 07:50:DURGA Ho) Heart Rhythm: Regular (04/29/2016 19:27:Anahy Mccormick RN) Heart Rhythm: Regular (04/29/2016 07:24:Vicki Ruiz RN) Heart Rhythm: Regular (04/28/2016 19:24:Anahy Mccormick RN) Nailbeds: [place] (04/30/2016 07:50:DURGA Ho) Nailbeds: [place] (04/29/2016 19:27:Anahy Mccormick RN) Nailbeds: [place] (04/29/2016 07:24:Vicki Ruiz RN) Nailbeds: [place] (04/28/2016 19:24:Anahy Mccormick RN) Capillary Refill: Less than 3 Seconds (04/30/2016 07:50:DURGA Ho) Capillary Refill: Less than 3 Seconds (04/29/2016 19:27:Anahy Mccormick RN) Capillary Refill: Less than 3 Seconds (04/29/2016 07:24:Vicki Ruiz RN) Capillary Refill: Less than 3 Seconds (04/28/2016 19:24:Anahy Mccormick RN) Lower Extremities Edema: Bilateral Lower Extremities (04/30/2016 07:50:DURGA Ho) Lower Extremities Edema: None (04/29/2016 19:27:Anahy Mccormick RN) Lower Extremities Edema: None (04/29/2016 07:24:Vicki Ruiz RN) Lower Extremities Edema: None (04/28/2016 19:24:Anahy Mccormick RN) Lower Extremities Edema Degree: 1+ (04/30/2016 07:50:DURGA Ho) Lower Extremities Edema Degree: None (04/29/2016 19:27:Anahy Mccormick RN) Lower Extremities Edema Degree: None (04/29/2016 07:24:Vicki Ruiz RN) Lower Extremities Edema Degree: None (04/28/2016 19:24:Anahy Mccormick RN) Upper Extremities Edema: Bilateral Upper Extremities (04/30/2016 07:50:DURGA Ho) Upper Extremities Edema: None (04/29/2016 19:27:Anahy Mccormick RN) Upper Extremities Edema: None (04/29/2016 07:24:Vicki Ruiz RN) Upper Extremities Edema: None (04/28/2016 19:24:Anahy Mccormick RN) Upper Extremities Edema Degree: 1+ (04/30/2016 07:50:DURGA Ho) Upper Extremities Edema Degree: None (04/29/2016 19:27:Anahy Mccormick RN) Upper Extremities Edema Degree: None (04/29/2016 07:24:Vicki Ruiz RN) Upper Extremities Edema Degree: None (04/28/2016 19:24:Anahy Mccormick RN) Facial Edema: None (04/30/2016 07:50:DURGA Ho) Facial Edema: None (04/29/2016 19:27:Anahy Mccormick RN) Facial Edema: None (04/29/2016 07:24:Vicki Ruiz RN) Facial Edema: None (04/28/2016 19:24:Anahy Mccormick RN) Lou's Sign Left Leg: Negative (04/30/2016 07:50:DURGA Ho) Lou's Sign Left Leg: Negative (04/29/2016 19:27:Anahy Mccormick RN) Lou's Sign Left Leg: Negative (04/28/2016 19:24:Anahy Mccormick RN) Lou's Sign Right Leg: Negative (04/30/2016 07:50:DURGA Ho) Lou's Sign Right Leg: Negative (04/29/2016 19:27:Anahy Mccormick RN) Lou's Sign Right Leg: Negative (04/28/2016 19:24:Anahy Mccormick RN) DVT Risk Age: Age less than 41 years (04/30/2016 07:50:DURGA Ho) DVT Risk Age: Age less than 41 years (04/29/2016 19:27:Anahy Mccormick RN) DVT Risk Age: Age less than 41 years (04/28/2016 19:24:Anahy Mccormick RN) DVT Risk BMI: BMI 31 to 40 (04/30/2016 07:50:DURGA Ho) DVT Risk BMI: BMI<31 (04/29/2016 19:27:Anahy Mccormick RN) DVT Risk BMI: BMI<31 (04/28/2016 19:24:Anahy Mccormick RN) DVT Risk Surgery: None Applicable (04/30/2016 07:50:DURGA Ho) DVT Risk Surgery: History of Prior Major Surgery (04/29/2016 19:27:Anahy Mccormick RN) DVT Risk Other: Women Only- or (<1 month) (04/30/2016 07:50:DURGA Ho) DVT Risk Other: Women Only- or (<1 month) (04/29/2016 19:27:Anahy Mccormick RN) DVT Risk Other: Women Only- or (<1 month) (04/28/2016 19:24:Anahy Mccormick RN) DVT Risk Total: 2 (04/30/2016 07:50:QS system process) DVT Risk Total: 2 (04/29/2016 19:27:QS system process) DVT Risk Text: Moderate Risk (10-20%) - Consider stockings, compresssion device, pharmacological therapy per hospital policy (04/30/2016 07:50:KAROL system process) DVT Risk Text: Moderate Risk (10-20%) - Consider stockings, compresssion device, pharmacological therapy per hospital policy (04/29/2016 19:27:QS system process) Respiratory Effort: Unlabored; Regular Rhythm; Equal Expansion (04/30/2016 07:50:DURGA Ho) Respiratory Effort: Unlabored; Regular Rhythm; Equal Expansion (04/29/2016 19:27:Anahy Mccormick RN) Respiratory Effort: Unlabored; Regular Rhythm; Equal Expansion (04/29/2016 07:24:Vicki Ruiz RN) Respiratory Effort: Unlabored; Regular Rhythm; Equal Expansion (04/28/2016 19:24:Anahy Mccormick RN) Breath Sounds, Left: Clear and Equal (04/30/2016 07:50:DURGA Ho) Breath Sounds, Left: Clear and Equal (04/29/2016 19:27:Anahy Mccormick RN) Breath Sounds, Left: Clear and Equal (04/29/2016 07:24:Vicki Ruiz RN) Breath Sounds, Left: Clear and Equal (04/28/2016 19:24:Anahy Mccormick RN) Breath Sounds, Right: Clear and Equal (04/30/2016 07:50:DURGA Ho) Breath Sounds, Right: Clear and Equal (04/29/2016 19:27:Anahy Mccormick RN) Breath Sounds, Right: Clear and Equal (04/29/2016 07:24:Vicki Ruiz RN) Breath Sounds, Right: Clear and Equal (04/28/2016 19:24:Anahy Mccormick RN) Cough Productivity: None (04/30/2016 07:50:DURGA Ho) Cough Productivity: None (04/29/2016 19:27:Anahy Mccormick RN) Cough Productivity: None (04/29/2016 07:24:Vicki Ruiz RN) Cough Productivity: None (04/28/2016 19:24:Anahy Mccormick RN) Nausea/Vomiting: Denies (04/30/2016 07:50:DURGA Ho) Nausea/Vomiting: Denies (04/29/2016 19:27:Anahy Mccormick RN) Nausea/Vomiting: Denies (04/29/2016 07:24:Vicki Ruiz RN) Nausea/Vomiting: Denies (04/28/2016 19:24:Anahy Mccormick RN) Bowel Sounds: Normoactive; All Quadrants (04/30/2016 07:50:DURGA Ho) Bowel Sounds: Normoactive (04/29/2016 19:27:Anahy Mccormick RN) Bowel Sounds: Normoactive (04/29/2016 07:24:Vicki Ruiz RN) Bowel Sounds: Normoactive (04/28/2016 19:24:Anahy Mccormick RN) RUQ Epigastric Pain: Denies (04/30/2016 07:50:DURGA Ho) RUQ Epigastric Pain: Denies (04/29/2016 19:27:Anahy Mccormick RN) RUQ Epigastric Pain: Denies (04/29/2016 07:24:Vicki Ruiz RN) RUQ Epigastric Pain: Denies (04/28/2016 19:24:Anahy Mccormick RN) Bowel Patterns: Soft, Formed Stool (04/30/2016 07:50:DURGA Ho) Bowel Patterns: Soft, Formed Stool (04/29/2016 19:27:Anahy Mccormick RN) Bowel Patterns: Soft, Formed Stool (04/29/2016 07:24:Vicki Ruiz RN) Hemorrhoids: None (04/29/2016 19:27:Anahy Mccormick RN) Hemorrhoids: None (04/29/2016 07:24:Vicki Ruiz RN) Diet Type: Regular diet (Annotations: breakfast ordered from [address]) (04/30/2016 07:50:DURGA Ho) Diet Type: Regular diet (04/29/2016 19:27:Anahy Mccormick RN) Diet Type: Regular diet (04/29/2016 07:24:Vicki Ruiz RN) Diet Type: Regular diet (04/28/2016 19:24:Anahy Mccormick RN) Bladder: Nondistended (04/30/2016 07:50:DURGA Ho) Bladder: Nondistended (04/29/2016 19:27:Anahy Mccormick RN) Bladder: Nondistended (04/29/2016 07:24:Vicki Ruiz RN) Bladder: Nondistended (04/28/2016 19:24:Anahy Mccormick RN) Frequency of Urination: No (04/30/2016 07:50:DURGA Ho) Frequency of Urination: No (04/29/2016 19:27:Anahy Mccormick RN) Frequency of Urination: No (04/29/2016 07:24:Vicki Ruiz RN) Frequency of Urination: No (04/28/2016 19:24:Anahy Mccormick RN) Urination Burning: No (04/30/2016 07:50:DURGA Ho) Urination Burning: No (04/29/2016 19:27:Anahy Mccormick RN) Urination Burning: No (04/29/2016 07:24:Vicki Ruiz RN) Urination Burning: No (04/28/2016 19:24:Anahy Mccormick RN) CVA Tenderness: No (04/30/2016 07:50:DURGA Ho) CVA Tenderness: No (04/29/2016 19:27:Anahy Mccormick RN) CVA Tenderness: No (04/29/2016 07:24:Vicki Ruiz RN) CVA Tenderness: No (04/28/2016 19:24:Anahy Mccormick RN) Vaginal Discharge Amount: None (04/30/2016 07:50:DURGA Ho) Vaginal Discharge Amount: None (04/29/2016 07:24:Vicki Ruiz RN) Vaginal Discharge Color: N/A (04/30/2016 07:50:DURGA Ho) Vaginal Discharge Color: N/A (04/29/2016 07:24:Vicki Ruiz RN) Vaginal Discharge Odor: Non-Odorous (04/30/2016 07:50:DURGA Ho) Vaginal Discharge Character: None (04/30/2016 07:50:DURGA Ho) Skin Color: Normal for Race (04/30/2016 07:50:DURGA Ho) Skin Color: Normal for Race (04/29/2016 19:27:Anahy Mccormick RN) Skin Color: Normal for Race (04/29/2016 07:24:Vicki Ruiz RN) Skin Color: Normal for Race (04/28/2016 19:24:Anahy Mccormick RN) Skin Temperature: Warm (04/30/2016 07:50:DURGA Ho) Skin Temperature: Warm (04/29/2016 19:27:Anahy Mccormick RN) Skin Temperature: Warm (04/29/2016 07:24:Vicki Ruiz RN) Skin Temperature: Warm (04/28/2016 19:24:Anahy Mccormick RN) Skin Moisture: Dry (04/30/2016 07:50:DURGA Ho) Skin Moisture: Dry (04/29/2016 19:27:Anahy Mccormick RN) Skin Moisture: Dry (04/29/2016 07:24:Vicki Ruiz RN) Skin Moisture: Dry (04/28/2016 19:24:Anahy Mccormick RN) Bassem Scale Sensory Perception: No Impairment- Responds to verbal commands. Has no sensory deficit which would limit ability to feel or voice pain or discomfort (04/30/2016 07:50:DURGA Ho) Bassem Scale Sensory Perception: No Impairment- Responds to verbal commands. Has no sensory deficit which would limit ability to feel or voice pain or discomfort (04/29/2016 19:27:Anahy Mccormick RN) Bassem Scale Sensory Perception: No Impairment- Responds to verbal commands. Has no sensory deficit which would limit ability to feel or voice pain or discomfort (04/29/2016 07:24:Vicki Ruiz RN) Bassem Scale Sensory Perception: No Impairment- Responds to verbal commands. Has no sensory deficit which would limit ability to feel or voice pain or discomfort (04/28/2016 19:24:Anahy Mccormick RN) Bassem Scale Moisture: Rarely Moist- Skin is usually dry. Linen only requires changing at routine intervals (04/30/2016 07:50:DURGA Ho) Bassem Scale Moisture: Rarely Moist- Skin is usually dry. Linen only requires changing at routine intervals (04/29/2016 19:27:Anahy Mccormick RN) Bassem Scale Moisture: Rarely Moist- Skin is usually dry. Linen only requires changing at routine intervals (04/29/2016 07:24:Vicki Ruiz RN) Bassem Scale Moisture: Rarely Moist- Skin is usually dry. Linen only requires changing at routine intervals (04/28/2016 19:24:Anahy Mccormick RN) Bassem Scale Activity: Walks Frequently- Walks outside the room at least twice a day and inside room at least every 2 hours during the day. (04/30/2016 07:50:DURGA Ho) Bassem Scale Activity: Walks Frequently- Walks outside the room at least twice a day and inside room at least every 2 hours during the day. (04/29/2016 19:27:Anahy Mccormick RN) Bassem Scale Activity: Walks Frequently- Walks outside the room at least twice a day and inside room at least every 2 hours during the day. (04/29/2016 07:24:Vicki Ruiz RN) Bassem Scale Activity: Walks Frequently- Walks outside the room at least twice a day and inside room at least every 2 hours during the day. (04/28/2016 19:24:Anahy Mccormick RN) Bassem Scale Mobility: No Limitations- Makes major and frequent changes in position without assistance (04/30/2016 07:50:DURGA Ho) Bassem Scale Mobility: No Limitations- Makes major and frequent changes in position without assistance (04/29/2016 19:27:Anahy Mccormick RN) Bassem Scale Mobility: No Limitations- Makes major and frequent changes in position without assistance (04/29/2016 07:24:Vicki Ruiz RN) Bassem Scale Mobility: No Limitations- Makes major and frequent changes in position without assistance (04/28/2016 19:24:Anahy Mccormick RN) Bassem Scale Nutrition: Excellent- Eats most of every meal. Never refuses a meal. Usually eats a total of 4 or more servings of meat and dairy products. Occasionally eats between meals. Does not require supplementation (04/30/2016 07:50:DURGA Ho) Bassem Scale Nutrition: Excellent- Eats most of every meal. Never refuses a meal. Usually eats a total of 4 or more servings of meat and dairy products. Occasionally eats between meals. Does not require supplementation (04/29/2016 19:27:Anahy Mccormick RN) Bassem Scale Nutrition: Excellent- Eats most of every meal. Never refuses a meal. Usually eats a total of 4 or more servings of meat and dairy products. Occasionally eats between meals. Does not require supplementation (04/29/2016 07:24:Vicki Ruiz RN) Bassem Scale Nutrition: Excellent- Eats most of every meal. Never refuses a meal. Usually eats a total of 4 or more servings of meat and dairy products. Occasionally eats between meals. Does not require supplementation (04/28/2016 19:24:Anahy Mccormick RN) Bassem Scale Friction and Shear: No Apparent Problem- Moves in bed and in chair independently and has sufficient muscle strength to lift up completely during move. Maintains good position in bed or chair at all times (04/30/2016 07:50:DURGA Ho) Bassem Scale Friction and Shear: No Apparent Problem- Moves in bed and in chair independently and has sufficient muscle strength to lift up completely during move. Maintains good position in bed or chair at all times (04/29/2016 07:24:Vicki Ruiz RN) Bassem Scale Friction and Shear: No Apparent Problem- Moves in bed and in chair independently and has sufficient muscle strength to lift up completely during move. Maintains good position in bed or chair at all times (04/28/2016 19:24:Anahy Mccormick RN) Bassem Scale Total: 23 (04/30/2016 07:50:QS system process) Bassem Scale Total: 23 (04/29/2016 07:24:QS system process) Bassem Scale Total: 23 (04/28/2016 19:24:QS system process) Bassem Scale Risk: No Risk of Pressure Ulcer Noted at this Time (04/30/2016 07:50:QS system process) Bassem Scale Risk: No Risk of Pressure Ulcer Noted at this Time (04/29/2016 07:24:QS system process) Bassem Scale Risk: No Risk of Pressure Ulcer Noted at this Time (04/28/2016 19:24:QS system process) Family Support: Significant Other supportive, at bedside frequently (Annotations: at bedside, appears supportive ) (04/30/2016 07:50:DURGA Ho) Family Support: Significant Other supportive, at bedside frequently; Family supportive (04/29/2016 19:27:Anahy Mccormick RN) Family Support: Significant Other supportive, at bedside frequently (04/29/2016 07:24:Vicki Ruiz RN) Family Support: Significant Other supportive, at bedside frequently (04/28/2016 19:24:Anahy Mccormick RN) Emotional State: Calm/Relaxed (04/30/2016 07:50:DURGA Ho) Emotional State: Calm/Relaxed (04/29/2016 19:27:Anahy Mccormick RN) Emotional State: Calm/Relaxed (04/29/2016 07:24:Vicki Ruiz RN) Emotional State: Calm/Relaxed (04/28/2016 19:24:Anahy Mccormick RN) Call Tena Within Reach: Yes (04/30/2016 07:50:DURGA Ho) Call Tena Within Reach: Yes (04/29/2016 19:27:Anahy Mccormick RN) Call Tena Within Reach: Yes (04/29/2016 07:24:Vicki Ruiz RN) Call Tena Within Reach: Yes (04/28/2016 19:24:Anahy Mccormick RN) Side Rails Up: Yes (04/30/2016 07:50:DURGA Ho) Side Rails Up: Yes (04/29/2016 19:27:Anahy Mccormick RN) Side Rails Up: Yes (04/29/2016 07:24:Vicki Ruiz RN) Side Rails Up: Yes (04/28/2016 19:24:Anahy Mccormick RN) Bed Wheels Locked: Yes (04/30/2016 07:50:DURGA Ho) Bed Wheels Locked: Yes (04/29/2016 19:27:Anahy Mccormick RN) Bed Wheels Locked: Yes (04/29/2016 07:24:Vicki Ruiz RN) Bed Wheels Locked: Yes (04/28/2016 19:24:Anahy Mccormick RN) Arm Bands Present: Yes (04/30/2016 07:50:DURGA Ho) Arm Bands Present: Yes (04/29/2016 19:27:Anahy Mccormick RN) Arm Bands Present: Yes (04/29/2016 07:24:Vicki Ruiz RN) Arm Bands Present: Yes (04/28/2016 19:24:Anahy Mccormick RN) Isolation: [place] (04/29/2016 19:27:Anahy Mccormick RN) Isolation: [place] (04/29/2016 07:24:Vicki Ruiz RN) Isolation: [place] (04/28/2016 19:24:Anahy Mccormick RN) Fall Risk History of Falling: (0) No (04/30/2016 07:50:DURGA Ho) Fall Risk History of Falling: (0) No (04/29/2016 19:27:Anahy Mccormick RN) Fall Risk History of Falling: (0) No (04/28/2016 19:24:Anahy Mccormick RN) Fall Risk Secondary Diagnosis: (0) No (04/30/2016 07:50:DURGA Ho) Fall Risk Secondary Diagnosis: (0) No (04/29/2016 19:27:Anahy Mccormick RN) Fall Risk Secondary Diagnosis: (0) No (04/28/2016 19:24:Anahy Mccormick RN) Fall Risk Ambulatory Aid: (0) None/Bedrest/Wheelchair/Nurse Assist (04/30/2016 07:50:DURGA Ho) Fall Risk Ambulatory Aid: (0) None/Bedrest/Wheelchair/Nurse Assist (04/29/2016 19:27:Anahy Mccormick RN) Fall Risk Ambulatory Aid: (0) None/Bedrest/Wheelchair/Nurse Assist (04/28/2016 19:24:Anahy Mccormick RN) Fall Risk IV Therapy: (20) Yes (04/29/2016 19:27:Anahy Mccormick RN) Fall Risk IV Therapy: (20) Yes (04/28/2016 19:24:Anahy Mccormick RN) Fall Risk Gait: (0) Normal/Bedrest/Immobile (04/29/2016 19:27:Anahy Mccormick RN) Fall Risk Gait: (0) Normal/Bedrest/Immobile (04/28/2016 19:24:Anahy Mccormick RN) Fall Risk Mental Status: (0) Oriented to Own Ability (04/29/2016 19:27:Anahy Mccormick RN) Fall Risk Mental Status: (0) Oriented to Own Ability (04/28/2016 19:24:Anahy Mccormick RN) Fall Risk Score: 20 (04/29/2016 19:27:QS system process) Fall Risk Score: 20 (04/28/2016 19:24:QS system process) Fall Risk Score Definition: No Risk: No action required (04/29/2016 19:27:QS system process) Fall Risk Score Definition: No Risk: No action required (04/28/2016 19:24:QS system process) Recent Exp Communicable Disease: No (04/29/2016 19:27:Anahy Mccormick RN) Recent Exp Communicable Disease: No (04/28/2016 19:24:Anahy Mccormick RN) Cough or Fever: No (04/29/2016 19:27:Anahy Mccormick RN) Cough or Fever: No (04/28/2016 19:24:Anahy Mccormick RN) Foreign Travel Past 10 Days: No (04/29/2016 19:27:Anahy Mccormick RN) Foreign Travel Past 10 Days: No (04/28/2016 19:24:Anahy Mccormick RN) Open Wounds or Sores: No (04/29/2016 19:27:Anahy Mccormick RN) Open Wounds or Sores: No (04/28/2016 19:24:Anahy Mccormick RN) Prior Antibiotic Resistance Tx: No (04/29/2016 19:27:Anahy Mccormick RN) Prior Antibiotic Resistance Tx: No (04/28/2016 19:24:Anahy Mccormick RN) Cultures Obtained: Not Applicable (04/29/2016 19:27:Anahy Mccormick RN) Cultures Obtained: Not Applicable (04/28/2016 19:24:Anahy Mccormick RN) Isolation Initiated: No (04/29/2016 19:27:Anahy Mccormick RN) Isolation Initiated: No (04/28/2016 19:24:Anahy Mccormick RN) Pt/Family Education: Handwashing Hygiene (04/29/2016 19:27:Anahy Mccormick RN) Pt/Family Education: Handwashing Hygiene (04/28/2016 19:24:Anahy Mccormick RN) FHR Baseline Rate (bpm) Baby A: 130 (04/30/2016 07:30:DURGA Ho) FHR Baseline Rate (bpm) Baby A: 120 (04/30/2016 07:00:Anahy Mccormick RN) FHR Baseline Rate (bpm) Baby A: 130 (04/29/2016 22:00:Anahy Mccormick RN) FHR Baseline Rate (bpm) Baby A: 125 (04/29/2016 21:45:Anahy Mccormick RN) FHR Baseline Rate (bpm) Baby A: 130 (04/29/2016 21:30:Anahy Mccormick RN) FHR Baseline Rate (bpm) Baby A: 130 (04/29/2016 21:15:Anahy Mccormick RN) FHR Baseline Rate (bpm) Baby A: 125 (04/29/2016 21:00:Anahy Mccormick RN) FHR Baseline Rate (bpm) Baby A: 125 (04/29/2016 20:45:Anahy Mccormick RN) FHR Baseline Rate (bpm) Baby A: 125 (04/29/2016 20:30:Anahy Mccormick RN) FHR Baseline Rate (bpm) Baby A: 120 (04/29/2016 20:15:Anahy Mccormick RN) FHR Baseline Rate (bpm) Baby A: 120 (04/29/2016 20:00:Anahy Mccormick RN) FHR Baseline Rate (bpm) Baby A: 125 (04/29/2016 19:45:Anahy Mccormick RN) FHR Baseline Rate (bpm) Baby A: 125 (04/29/2016 19:30:Anahy Mccormick RN) FHR Baseline Rate (bpm) Baby A: 120 (04/29/2016 19:15:Anahy Mccormick RN) FHR Baseline Rate (bpm) Baby A: 135 (04/29/2016 18:45:Vicki Ruiz RN) FHR Baseline Rate (bpm) Baby A: 135 (04/29/2016 18:30:Vicki Ruiz RN) FHR Baseline Rate (bpm) Baby A: 135 (04/29/2016 18:15:Vicki Ruiz RN) FHR Baseline Rate (bpm) Baby A: 135 (04/29/2016 18:00:Vicki Ruiz RN) FHR Baseline Rate (bpm) Baby A: 135 (04/29/2016 17:45:Vicki Ruiz RN) FHR Baseline Rate (bpm) Baby A: 135 (04/29/2016 17:15:Vicki Ruiz RN) FHR Baseline Rate (bpm) Baby A: 130 (04/29/2016 17:00:Vicki Ruiz RN) FHR Baseline Rate (bpm) Baby A: 130 (04/29/2016 16:45:Vicki Ruiz RN) FHR Baseline Rate (bpm) Baby A: 135 (04/29/2016 16:30:Vicki Ruiz RN) FHR Baseline Rate (bpm) Baby A: 130 (04/29/2016 16:15:Vicki Ruiz RN) FHR Baseline Rate (bpm) Baby A: 135 (04/29/2016 16:00:Vicki Ruiz RN) FHR Baseline Rate (bpm) Baby A: 140 (04/29/2016 15:45:Vicki Ruiz, RN) FHR Baseline Rate (bpm) Baby A: 135 (04/29/2016 15:30:Vicki Ruiz, RN) FHR Baseline Rate (bpm) Baby A: 130 (04/29/2016 15:15:Vicki Ruiz, RN) FHR Baseline Rate (bpm) Baby A: 135 (04/29/2016 15:00:Vicki Ruiz RN) FHR Baseline Rate (bpm) Baby A: 130 (04/29/2016 14:45:Vicki Ruiz RN) FHR Baseline Rate (bpm) Baby A: 135 (04/29/2016 14:30:Vicki Ruiz RN) FHR Baseline Rate (bpm) Baby A: 140 (04/29/2016 14:00:Vicki Ruiz RN) FHR Baseline Rate (bpm) Baby A: 130 (04/29/2016 13:30:Vicki Ruiz RN) FHR Baseline Rate (bpm) Baby A: 130 (04/29/2016 13:00:Vicki Ruiz RN) FHR Baseline Rate (bpm) Baby A: 130 (04/29/2016 12:30:Vicki Ruiz RN) FHR Baseline Rate (bpm) Baby A: 135 (04/29/2016 12:00:Vicki Ruiz RN) FHR Baseline Rate (bpm) Baby A: 130 (04/29/2016 11:30:Vicki Ruiz RN) FHR Baseline Rate (bpm) Baby A: 130 (04/29/2016 11:00:Vicki Ruiz RN) FHR Baseline Rate (bpm) Baby A: 130 (04/29/2016 10:30:Vicki uRiz RN) FHR Baseline Rate (bpm) Baby A: 135 (04/29/2016 10:00:Vicki Ruiz RN) FHR Baseline Rate (bpm) Baby A: 120 (04/29/2016 08:27:Vicki Ruiz RN) FHR Baseline Rate (bpm) Baby A: 125 (04/29/2016 08:00:Vicki Ruiz RN) FHR Baseline Rate (bpm) Baby A: 120 (04/29/2016 07:30:Vicki Ruiz RN) FHR Baseline Rate (bpm) Baby A: 125 (04/29/2016 07:00:Anahy Mccormick RN) FHR Baseline Rate (bpm) Baby A: 125 (04/29/2016 06:30:Anahy Mccormick RN) FHR Baseline Rate (bpm) Baby A: 120 (04/29/2016 06:00:Anahy Mccormick RN) FHR Baseline Rate (bpm) Baby A: 120 (04/29/2016 05:30:Anahy Mccormick RN) FHR Baseline Rate (bpm) Baby A: 115 (04/29/2016 05:00:Anahy Mccormick RN) FHR Baseline Rate (bpm) Baby A: 125 (04/29/2016 04:30:Anahy Mccormick RN) FHR Baseline Rate (bpm) Baby A: 120 (04/29/2016 04:00:Anahy Mccormick RN) FHR Baseline Rate (bpm) Baby A: 120 (04/29/2016 03:30:Anayh Mccormick RN) FHR Baseline Rate (bpm) Baby A: 125 (04/29/2016 03:00:Anahy Mccormick RN) FHR Baseline Rate (bpm) Baby A: 125 (04/29/2016 02:30:Anahy Mccormick RN) FHR Baseline Rate (bpm) Baby A: 130 (04/29/2016 02:00:Anahy Mccormick RN) FHR Baseline Rate (bpm) Baby A: 135 (04/29/2016 01:30:Anahy Mccormick RN) FHR Baseline Rate (bpm) Baby A: 135 (04/29/2016 01:00:Anahy Mccormick RN) FHR Baseline Rate (bpm) Baby A: 125 (04/29/2016 00:30:Anahy Mccormick RN) FHR Baseline Rate (bpm) Baby A: 125 (04/29/2016 00:00:Anahy Mccormick RN) FHR Baseline Rate (bpm) Baby A: 125 (04/28/2016 23:30:Anahy Mccormick RN) FHR Baseline Rate (bpm) Baby A: 125 (04/28/2016 23:00:Anahy Mccormick RN) FHR Baseline Rate (bpm) Baby A: 135 (04/28/2016 22:30:Anahy Mccormick RN) FHR Baseline Rate (bpm) Baby A: 130 (04/28/2016 22:00:Anahy Mccormick RN) FHR Baseline Rate (bpm) Baby A: 130 (04/28/2016 21:30:Anahy Mccormick RN) FHR Baseline Rate (bpm) Baby A: 130 (04/28/2016 21:00:Anahy Mccormick RN) FHR Baseline Rate (bpm) Baby A: 125 (04/28/2016 19:30:Anahy Mccormick RN) FHR Baseline Rate (bpm) Baby A: 125 (04/28/2016 19:00:Heather Hanna RN) FHR Baseline Rate (bpm) Baby A: 120 (04/28/2016 18:30:Heather Hanna RN) FHR Baseline Rate (bpm) Baby A: 125 (04/28/2016 18:00:Heather Hanna RN) FHR Baseline Rate (bpm) Baby A: 120 (04/28/2016 17:30:Heather Hanna RN) FHR Baseline Rate (bpm) Baby A: 120 (04/28/2016 16:59:Heather Hanna RN) FHR Baseline Rate (bpm) Baby A: 125 (04/28/2016 16:29:Heather Hanna RN) FHR Baseline Rate (bpm) Baby A: 125 (04/28/2016 15:59:Heather Hanna RN) FHR Baseline Rate (bpm) Baby A: 120 (04/28/2016 15:29:Heather Hanna RN) FHR Baseline Rate (bpm) Baby A: 120 (04/28/2016 14:59:Heather Hanna RN) FHR Baseline Rate (bpm) Baby A: 120 (04/28/2016 14:30:Heather Hanna RN) FHR Baseline Rate (bpm) Baby A: 120 (04/28/2016 14:00:Heather Hanna RN) FHR Baseline Rate (bpm) Baby A: 115 (04/28/2016 13:30:Heather Hanna RN) FHR Baseline Rate (bpm) Baby A: 120 (04/28/2016 13:00:Heather Hanna RN) FHR Baseline Rate (bpm) Baby A: 125 (04/28/2016 12:30:Heather Hanna RN) FHR Baseline Rate (bpm) Baby A: 125 (04/28/2016 12:00:Heather Hanna RN) FHR Baseline Rate (bpm) Baby A: 120 (04/28/2016 11:30:Heather Hanna RN) FHR Baseline Rate (bpm) Baby A: 120 (04/28/2016 11:00:Heather Hanna RN) Variability Baby A: Moderate 6-25 bpm (04/30/2016 07:30:[place]UR[place] Ho) Variability Baby A: Moderate 6-25 bpm (04/30/2016 07:00:Anahy Mccormick RN) Variability Baby A: Moderate 6-25 bpm (04/29/2016 22:00:Anahy Mccormick RN) Variability Baby A: Moderate 6-25 bpm (04/29/2016 21:45:Anahy Mccormick RN) Variability Baby A: Moderate 6-25 bpm (04/29/2016 21:30:Anahy Mccormick RN) Variability Baby A: Moderate 6-25 bpm (04/29/2016 21:15:Anahy Mccormick RN) Variability Baby A: Moderate 6-25 bpm (04/29/2016 21:00:Anahy Mccormick RN) Variability Baby A: Moderate 6-25 bpm (04/29/2016 20:45:Anahy Mccormick RN) Variability Baby A: Moderate 6-25 bpm (04/29/2016 20:30:Anahy Mccormick RN) Variability Baby A: Moderate 6-25 bpm (04/29/2016 20:15:Anahy Mccormick RN) Variability Baby A: Moderate 6-25 bpm (04/29/2016 20:00:Anahy Mccormick RN) Variability Baby A: Moderate 6-25 bpm (04/29/2016 19:45:Anahy Mccormick RN) Variability Baby A: Moderate 6-25 bpm (04/29/2016 19:30:Anahy Mccormick RN) Variability Baby A: Moderate 6-25 bpm (04/29/2016 19:15:Anahy Mccormick RN) Variability Baby A: Moderate 6-25 bpm (04/29/2016 18:45:Vicki Ruiz RN) Variability Baby A: Moderate 6-25 bpm (04/29/2016 18:30:Vicki Sara, RN) Variability Baby A: Moderate 6-25 bpm (04/29/2016 18:15:Vicki Sara, RN) Variability Baby A: Moderate 6-25 bpm (04/29/2016 18:00:Vicki Sara, RN) Variability Baby A: Moderate 6-25 bpm (04/29/2016 17:45:Vicki Sara, RN) Variability Baby A: Moderate 6-25 bpm (04/29/2016 17:15:Vicki Sara, RN) Variability Baby A: Moderate 6-25 bpm (04/29/2016 17:00:Vicki Sara, RN) Variability Baby A: Moderate 6-25 bpm (04/29/2016 16:45:Vicki Sara, RN) Variability Baby A: Moderate 6-25 bpm (04/29/2016 16:30:Vicki Sara, RN) Variability Baby A: Moderate 6-25 bpm (04/29/2016 16:00:Vicki Sara, RN) Variability Baby A: Moderate 6-25 bpm (04/29/2016 15:45:Vicki Sara, RN) Variability Baby A: Moderate 6-25 bpm (04/29/2016 15:30:Vicki Sara, RN) Variability Baby A: Moderate 6-25 bpm (04/29/2016 15:15:Vicki Sara, RN) Variability Baby A: Moderate 6-25 bpm (04/29/2016 15:00:Vicki Sara, RN) Variability Baby A: Moderate 6-25 bpm (04/29/2016 14:45:Vicki Sara, RN) Variability Baby A: Moderate 6-25 bpm (04/29/2016 14:30:Vicki Sara, RN) Variability Baby A: Moderate 6-25 bpm (04/29/2016 14:00:Vicki Sara, RN) Variability Baby A: Moderate 6-25 bpm (04/29/2016 13:30:Vicki Sara, RN) Variability Baby A: Moderate 6-25 bpm (04/29/2016 13:00:Vicki Sara, RN) Variability Baby A: Moderate 6-25 bpm (04/29/2016 12:30:Vicki Sara, RN) Variability Baby A: Moderate 6-25 bpm (04/29/2016 12:00:Vicki Sara, RN) Variability Baby A: Moderate 6-25 bpm (04/29/2016 11:30:Vicki Ruiz RN) Variability Baby A: Moderate 6-25 bpm (04/29/2016 11:00:Vicki Ruiz RN) Variability Baby A: Moderate 6-25 bpm (04/29/2016 10:30:Vicki Ruiz RN) Variability Baby A: Moderate 6-25 bpm (04/29/2016 10:00:Vicki Ruiz RN) Variability Baby A: Moderate 6-25 bpm (04/29/2016 08:27:Vicki Ruiz RN) Variability Baby A: Moderate 6-25 bpm (04/29/2016 08:00:Vicki Ruiz RN) Variability Baby A: Moderate 6-25 bpm (04/29/2016 07:30:Vicki Ruiz RN) Variability Baby A: Moderate 6-25 bpm (04/29/2016 07:00:Anahy Mccormick RN) Variability Baby A: Moderate 6-25 bpm (04/29/2016 06:30:Anahy Mccormick RN) Variability Baby A: Moderate 6-25 bpm (04/29/2016 06:00:Anahy Mccormick RN) Variability Baby A: Moderate 6-25 bpm (04/29/2016 05:30:Anahy Mccormick RN) Variability Baby A: Moderate 6-25 bpm (04/29/2016 05:00:Anahy Mccormick RN) Variability Baby A: Moderate 6-25 bpm (04/29/2016 04:30:Anahy Mccormick RN) Variability Baby A: Moderate 6-25 bpm (04/29/2016 04:00:Anahy Mccormick RN) Variability Baby A: Moderate 6-25 bpm (04/29/2016 03:30:Anahy Mccormick RN) Variability Baby A: Moderate 6-25 bpm (04/29/2016 03:00:Anahy Mccormick RN) Variability Baby A: Moderate 6-25 bpm (04/29/2016 02:30:Anahy Mccormcik RN) Variability Baby A: Moderate 6-25 bpm (04/29/2016 02:00:Anahy Mccormick RN) Variability Baby A: Moderate 6-25 bpm (04/29/2016 01:30:Anahy Mccormick RN) Variability Baby A: Moderate 6-25 bpm (04/29/2016 01:00:Anahy Mccormick RN) Variability Baby A: Moderate 6-25 bpm (04/29/2016 00:30:Anahy Mccormick RN) Variability Baby A: Moderate 6-25 bpm (04/29/2016 00:00:Anahy Mccormick RN) Variability Baby A: Moderate 6-25 bpm (04/28/2016 23:30:Anahy Mccormick RN) Variability Baby A: Moderate 6-25 bpm (04/28/2016 23:00:Anahy Mccormick RN) Variability Baby A: Moderate 6-25 bpm (04/28/2016 22:30:Anahy Mccormick RN) Variability Baby A: Moderate 6-25 bpm (04/28/2016 22:00:Anahy Mccormick RN) Variability Baby A: Moderate 6-25 bpm (04/28/2016 21:30:Anahy Mccormick RN) Variability Baby A: Moderate 6-25 bpm (04/28/2016 21:00:Anahy Mccormick RN) Variability Baby A: Moderate 6-25 bpm (04/28/2016 19:30:Anahy Mccormick RN) Variability Baby A: Moderate 6-25 bpm (04/28/2016 19:00:Heather Hanna RN) Variability Baby A: Moderate 6-25 bpm (04/28/2016 18:30:Heather Hanna RN) Variability Baby A: Moderate 6-25 bpm (04/28/2016 18:00:Heather Hanna RN) Variability Baby A: Moderate 6-25 bpm (04/28/2016 17:30:Heather Hanna RN) Variability Baby A: Moderate 6-25 bpm (04/28/2016 16:59:Heather Hanna RN) Variability Baby A: Moderate 6-25 bpm (04/28/2016 16:29:Heather Hanna RN) Variability Baby A: Moderate 6-25 bpm (04/28/2016 15:59:Heather Hanna RN) Variability Baby A: Moderate 6-25 bpm (04/28/2016 15:29:Heather Hanna RN) Variability Baby A: Moderate 6-25 bpm (04/28/2016 14:59:Heather Hanna RN) Variability Baby A: Moderate 6-25 bpm (04/28/2016 14:30:Heather Hanna RN) Variability Baby A: Moderate 6-25 bpm (04/28/2016 14:00:Heather Hanna RN) Variability Baby A: Moderate 6-25 bpm (04/28/2016 13:30:Heather Hanna RN) Variability Baby A: Moderate 6-25 bpm (04/28/2016 13:00:Heather Hanna RN) Variability Baby A: Moderate 6-25 bpm (04/28/2016 12:30:Heather Hanna RN) Variability Baby A: Moderate 6-25 bpm (04/28/2016 12:00:Heather Hanna RN) Variability Baby A: Moderate 6-25 bpm (04/28/2016 11:30:Heather Hanna RN) Variability Baby A: Moderate 6-25 bpm (04/28/2016 11:00:Heather Hanna RN) Accelerations Baby A: 15X15 (04/30/2016 07:30:DURGA Ho) Accelerations Baby A: 15X15 (04/30/2016 07:00:Anahy Mccormick RN) Accelerations Baby A: 15X15 (04/29/2016 22:00:Anahy Mccormick RN) Accelerations Baby A: 15X15 (04/29/2016 21:45:Anhay Mccormick RN) Accelerations Baby A: 15X15 (04/29/2016 21:30:Anahy Mccormick RN) Accelerations Baby A: 15X15 (04/29/2016 21:15:Anahy Mccormick RN) Accelerations Baby A: 15X15 (04/29/2016 21:00:Anahy Mccormick RN) Accelerations Baby A: 15X15 (04/29/2016 20:45:Anahy Mccormick RN) Accelerations Baby A: 15X15 (04/29/2016 20:30:Anahy Mccormick RN) Accelerations Baby A: 15X15 (04/29/2016 20:15:Anahy Mccormick RN) Accelerations Baby A: 15X15 (04/29/2016 20:00:Anahy Mccormick RN) Accelerations Baby A: 15X15 (04/29/2016 19:45:Anahy Mccormick RN) Accelerations Baby A: 15X15 (04/29/2016 19:30:Anahy Mccormick RN) Accelerations Baby A: 15X15 (04/29/2016 19:15:Anahy Mccormick RN) Accelerations Baby A: 15X15 (04/29/2016 18:45:Vickiwesley Ruiz, RN) Accelerations Baby A: 15X15 (04/29/2016 18:30:Vickiwesley Ruiz, RN) Accelerations Baby A: 15X15 (04/29/2016 18:15:Vickiwesley Ruiz, RN) Accelerations Baby A: None (04/29/2016 18:00:Vickiwesley Ruiz, RN) Accelerations Baby A: None (04/29/2016 17:45:Vickiwesley Ruiz, RN) Accelerations Baby A: None (04/29/2016 17:15:Vicki Sara, RN) Accelerations Baby A: 15X15 (04/29/2016 17:00:Vickiwesley Ruiz, RN) Accelerations Baby A: 15X15 (04/29/2016 16:45:Vickiwesley Ruiz, RN) Accelerations Baby A: 15X15 (04/29/2016 16:30:Vicki Sara, RN) Accelerations Baby A: 15X15 (04/29/2016 16:15:Vicki Sara, RN) Accelerations Baby A: 15X15 (04/29/2016 16:00:Vicki Sara, RN) Accelerations Baby A: 15X15 (04/29/2016 15:45:Vicki Sara, RN) Accelerations Baby A: 15X15 (04/29/2016 15:30:Vicki Sara, RN) Accelerations Baby A: 15X15 (04/29/2016 15:15:Vicki Sara, RN) Accelerations Baby A: 15X15 (04/29/2016 15:00:Vicki Sara, RN) Accelerations Baby A: 15X15 (04/29/2016 14:45:Vicki Sara, RN) Accelerations Baby A: 15X15 (04/29/2016 14:30:Vicki Sara, RN) Accelerations Baby A: 15X15 (04/29/2016 14:00:Vicki Sara, RN) Accelerations Baby A: 15X15 (04/29/2016 13:30:Vicki Ruiz, JAYLON) Accelerations Baby A: 15X15 (04/29/2016 13:00:Vicki Ruiz, JAYLON) Accelerations Baby A: 15X15 (04/29/2016 12:30:Vicki Ruiz, RN) Accelerations Baby A: 15X15 (04/29/2016 12:00:Vicki Ruiz, RN) Accelerations Baby A: 15X15 (04/29/2016 11:30:Vicki Ruiz, RN) Accelerations Baby A: 15X15 (04/29/2016 11:00:Vicki Ruiz, RN) Accelerations Baby A: 15X15 (04/29/2016 10:30:Vicki Ruiz RN) Accelerations Baby A: 15X15 (04/29/2016 10:00:Vicki uRiz RN) Accelerations Baby A: 15X15 (04/29/2016 08:27:Vicki Ruiz RN) Accelerations Baby A: 15X15 (04/29/2016 08:00:Vicki Ruiz RN) Accelerations Baby A: 15X15 (04/29/2016 07:30:Vicki Ruiz RN) Accelerations Baby A: 15X15 (04/29/2016 07:00:Anahy Mccormick RN) Accelerations Baby A: 15X15 (04/29/2016 06:30:Anahy Mccormick RN) Accelerations Baby A: 15X15 (04/29/2016 06:00:Anahy Mccormick RN) Accelerations Baby A: 15X15 (04/29/2016 05:30:Anahy Mccormick RN) Accelerations Baby A: 15X15 (04/29/2016 05:00:Anahy Mccormick RN) Accelerations Baby A: 15X15 (04/29/2016 04:30:Anahy Mccormick RN) Accelerations Baby A: 15X15 (04/29/2016 04:00:Anahy Mccormick RN) Accelerations Baby A: 15X15 (04/29/2016 03:30:Anahy Mccormick RN) Accelerations Baby A: 15X15 (04/29/2016 03:00:Anahy Mccormick RN) Accelerations Baby A: 15X15 (04/29/2016 02:30:Anahy Mccormick RN) Accelerations Baby A: 15X15 (04/29/2016 02:00:Anahy Mccormick RN) Accelerations Baby A: 15X15 (04/29/2016 01:30:Anahy Mccormick RN) Accelerations Baby A: 15X15 (04/29/2016 01:00:Anahy Mccormick RN) Accelerations Baby A: 15X15 (04/29/2016 00:30:Anahy Mccormick RN) Accelerations Baby A: 15X15 (04/29/2016 00:00:Anahy Mccormick RN) Accelerations Baby A: 15X15 (04/28/2016 23:30:Anahy Mccormick RN) Accelerations Baby A: 15X15 (04/28/2016 23:00:Anahy Mccormick RN) Accelerations Baby A: 15X15 (04/28/2016 22:30:Anahy Mccormick RN) Accelerations Baby A: 15X15 (04/28/2016 22:00:Anahy Mccormick RN) Accelerations Baby A: 15X15 (04/28/2016 21:30:Anahy Mccormick RN) Accelerations Baby A: 15X15 (04/28/2016 21:00:Anahy Mccormick RN) Accelerations Baby A: 15X15 (04/28/2016 19:30:Anahy Mccormick RN) Accelerations Baby A: 15X15 (04/28/2016 19:00:Heather Hanna RN) Accelerations Baby A: 15X15 (04/28/2016 18:30:Heather Hanna RN) Accelerations Baby A: 15X15 (04/28/2016 18:00:Heather Hanna RN) Accelerations Baby A: 15X15 (04/28/2016 17:30:Heather Hanna RN) Accelerations Baby A: 15X15 (04/28/2016 16:59:Heather Hanna RN) Accelerations Baby A: 15X15 (04/28/2016 16:29:Heather Hanna RN) Accelerations Baby A: 15X15 (04/28/2016 15:59:Heather Hanna RN) Accelerations Baby A: 15X15 (04/28/2016 15:29:Heather Hanna RN) Accelerations Baby A: 15X15 (04/28/2016 14:59:Heather Hanna RN) Accelerations Baby A: 15X15 (04/28/2016 14:30:Heather Hanna RN) Accelerations Baby A: 15X15 (04/28/2016 14:00:Heather Hanna RN) Accelerations Baby A: 15X15 (04/28/2016 13:30:Heather Hanna RN) Accelerations Baby A: 15X15 (04/28/2016 13:00:Heather Hanna RN) Accelerations Baby A: 15X15 (04/28/2016 12:30:Heather Hanna RN) Accelerations Baby A: 15X15 (04/28/2016 12:00:Heather Hanna RN) Accelerations Baby A: 15X15 (04/28/2016 11:30:Heather Hanna RN) Accelerations Baby A: 15X15 (04/28/2016 11:00:Heather Hanna RN) Decelerations Baby A: None (04/30/2016 07:30:DURGA Ho) Decelerations Baby A: None (04/30/2016 07:00:Anahy Mccormick RN) Decelerations Baby A: None (04/29/2016 22:00:Anahy Mccormick RN) Decelerations Baby A: None (04/29/2016 21:45:Anahy Mccormick RN) Decelerations Baby A: None (04/29/2016 21:30:Anahy Mccormick RN) Decelerations Baby A: None (04/29/2016 21:15:Anahy Mccormick RN) Decelerations Baby A: None (04/29/2016 21:00:Anahy Mccormick RN) Decelerations Baby A: None (04/29/2016 20:45:Anahy Mccormick RN) Decelerations Baby A: None (04/29/2016 20:30:Anahy Mccormick RN) Decelerations Baby A: None (04/29/2016 20:15:Anahy Mccormick RN) Decelerations Baby A: None (04/29/2016 20:00:Anahy Mccormick RN) Decelerations Baby A: None (04/29/2016 19:45:Anahy Mccormick RN) Decelerations Baby A: None (04/29/2016 19:30:Anahy Mccormick RN) Decelerations Baby A: None (04/29/2016 19:15:Anahy Mccormick RN) Decelerations Baby A: None (04/29/2016 18:45:Vicki Ruiz RN) Decelerations Baby A: None (04/29/2016 18:30:Vicki Ruiz RN) Decelerations Baby A: None (04/29/2016 18:15:Vicki Ruiz RN) Decelerations Baby A: None (04/29/2016 18:00:Vicki Ruiz RN) Decelerations Baby A: Early (04/29/2016 17:45:Vicki Ruiz RN) Decelerations Baby A: None (04/29/2016 17:15:Vicki Ruiz RN) Decelerations Baby A: None (04/29/2016 17:00:Vicki Ruiz RN) Decelerations Baby A: None (04/29/2016 16:45:Vicki Ruiz RN) Decelerations Baby A: None (04/29/2016 16:30:Vicki Ruiz RN) Decelerations Baby A: None (04/29/2016 16:15:Vicki Ruiz RN) Decelerations Baby A: None (04/29/2016 16:00:Vicki Ruiz RN) Decelerations Baby A: None (04/29/2016 15:45:Vicki Ruiz RN) Decelerations Baby A: None (04/29/2016 15:30:Vicki Ruiz RN) Decelerations Baby A: None (04/29/2016 15:15:Vicki Ruiz RN) Decelerations Baby A: None (04/29/2016 15:00:Vicki Ruiz RN) Decelerations Baby A: None (04/29/2016 14:45:Vicki Ruiz RN) Decelerations Baby A: None (04/29/2016 14:30:Vicki Ruiz RN) Decelerations Baby A: None (04/29/2016 14:00:Vicki Ruiz RN) Decelerations Baby A: None (04/29/2016 13:30:Vicki Ruiz RN) Decelerations Baby A: None (04/29/2016 13:00:Vicki Ruiz RN) Decelerations Baby A: None (04/29/2016 12:30:Vicki Ruiz RN) Decelerations Baby A: None (04/29/2016 12:00:Vicki Ruiz RN) Decelerations Baby A: None (04/29/2016 11:30:Vicki Ruiz RN) Decelerations Baby A: None (04/29/2016 11:00:Vicki Ruiz RN) Decelerations Baby A: None (04/29/2016 10:30:Vicki Ruiz RN) Decelerations Baby A: None (04/29/2016 10:00:Vicki Ruiz RN) Decelerations Baby A: None (04/29/2016 08:27:Vicki Ruiz RN) Decelerations Baby A: None (04/29/2016 08:00:Vicki Ruiz RN) Decelerations Baby A: None (04/29/2016 07:30:Vicki Ruiz RN) Decelerations Baby A: None (04/29/2016 07:00:Anahy Mccormick RN) Decelerations Baby A: None (04/29/2016 06:30:Anahy Mccormick RN) Decelerations Baby A: None (04/29/2016 06:00:Anahy Mccormick RN) Decelerations Baby A: None (04/29/2016 05:30:Anahy Mccormick RN) Decelerations Baby A: None (04/29/2016 05:00:Anahy Mccormick RN) Decelerations Baby A: None (04/29/2016 04:30:Anahy Mccormick RN) Decelerations Baby A: None (04/29/2016 04:00:Anahy Mccormick RN) Decelerations Baby A: Variable (04/29/2016 03:30:Anahy Mccormick RN) Decelerations Baby A: None (04/29/2016 03:00:Anahy Mccormick RN) Decelerations Baby A: None (04/29/2016 02:30:Anahy Mccormick RN) Decelerations Baby A: None (04/29/2016 02:00:Anahy Mccormick RN) Decelerations Baby A: None (04/29/2016 01:30:Anahy Mccormick RN) Decelerations Baby A: None (04/29/2016 01:00:Anahy Mccormick RN) Decelerations Baby A: None (04/29/2016 00:30:Anahy Mccormick RN) Decelerations Baby A: None (04/29/2016 00:00:Anahy Mccormick RN) Decelerations Baby A: None (04/28/2016 23:30:Anahy Mccormick RN) Decelerations Baby A: None (04/28/2016 23:00:Anahy Mccormick RN) Decelerations Baby A: None (04/28/2016 22:30:Anahy Mccormick RN) Decelerations Baby A: None (04/28/2016 22:00:Anahy Mccormick RN) Decelerations Baby A: None (04/28/2016 21:30:Anahy Mccormick RN) Decelerations Baby A: None (04/28/2016 21:00:Anahy Mccormick RN) Decelerations Baby A: None (04/28/2016 19:30:Anahy Mccormick RN) Decelerations Baby A: None (04/28/2016 19:00:Heather Hanna RN) Decelerations Baby A: None (04/28/2016 18:30:Heather Hanna RN) Decelerations Baby A: None (04/28/2016 18:00:Heather Hanna RN) Decelerations Baby A: None (04/28/2016 17:30:Heather Hanna RN) Decelerations Baby A: None (04/28/2016 16:59:Heather Hanna RN) Decelerations Baby A: None (04/28/2016 16:29:Heather Hanna RN) Decelerations Baby A: None (04/28/2016 15:59:Heather Hanna RN) Decelerations Baby A: None (04/28/2016 15:29:Heather Hanna RN) Decelerations Baby A: None (04/28/2016 14:59:Heather Hanna RN) Decelerations Baby A: None (04/28/2016 14:30:Heather Hanna RN) Decelerations Baby A: None (04/28/2016 14:00:Heather Hanna RN) Decelerations Baby A: None (04/28/2016 13:30:Heather Hanna RN) Decelerations Baby A: None (04/28/2016 13:00:Heather Hanna RN) Decelerations Baby A: None (04/28/2016 12:30:Heather Hanna RN) Decelerations Baby A: None (04/28/2016 12:00:Heather Hanna RN) Decelerations Baby A: None (04/28/2016 11:30:Heather Hanna RN) Decelerations Baby A: None (04/28/2016 11:00:Heather Hanna RN)
--- NOTE | 2016-05-16 11:23 | Admission Physical ---
Datetime Report Generated by CPN: 05/16/2016 11:23 CURRENT ADMISSION Chief Complaint: Uterine Contractions Indication for Induction: Other Indication for Induction- Other: 2 Spontaneous deccels to the 60's lasting 4mins and 6 mins Admit Plan: Admit to Unit; Initiate Labor Protocol ALLERGIES Medication Allergies: No Medication Allergies: No Known Allergies (02/15/2013) Latex: No Latex Allergies OBSTETRICAL HISTORY EDC: 05/08/2016 00:00 : 1 Para: 0 Term: 0 : 0 SAB: 0 IAB: 0 Ectopic: 0 Livin Cesareans: 0 VBACs: 0 Multiple Births: 0 Gestational Diabetes: No Rh Sensitization: No Incompetent Cervix: No FELICIA: No Infertility: Yes ART Treatment: No Uterine Anomaly: No IUGR: No Hx Previous C/S: No Macrosomia: No Hx Loss/Stillborn: No PIH: No Hx : No Placenta Previa/Abruption: No Depression/PP Depression: No PTL/PROM: No Post Hemorrhage: No Current Procedures: Ultrasound; NST Obstetrical History Comments: g1 - current - clomid conception SEE RECORDS Alcohol: No Marijuana : No Cocaine: No Other Illicit Drugs: No Cigarettes: Former Smoker. 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 Heart Disease: No Hosp/Surgery: No Autoimmune Disorder: No Anesthetic Complications: No Kidney Disease: No Abnormal Pap Smear: No Neuro/Epilepsy: No Psychiatric Disorders: No Other Medical Diseases: No Hepatitis/Liver Disease: No Significant Family History: No Varicosities/Phlebitis: No Trauma/Violence : No Thyroid Dysfunction: No Medical History Comments: appendectomy INFECTIOUS HISTORY Gonorrhea: No Genital Herpes: No Chlamydia: No Tuberculosis: No Syphilis: No Hepatitis: No HIV/AIDS Exposure: No Rash or Viral Illness: No HPV: No PHYSICAL EXAM General: Normal HEENT: Normal Neurologic: Normal Thyroid: Deferred Heart: Normal Lungs: Normal Breast: Deferred Back: Normal Abdomen: Normal Genitourinary Exam: Normal Extremities: Normal DTRs: Normal Pelvic Type: Adequate Vital Signs: Reviewed; Within Normal Limits VAGINAL EXAM Dilatation: 0 Effacement: 0 Station: -3 MEMBRANES Membranes: Intact FETUS A EGA: 38.4 Monitoring: External US FHR- Baseline: 140 Variability: Moderate 6-25bpm Accelerations: 15X15 FHR Category: Category II FHR Comments: 2 spontaneous deccels to 60's lasting 4mins and 6mins Admit Comment: Will admit for Induction secondary to the deccels PLANS FOR LABOR AND DELIVERY Labor and Delivery: None Pain Management: Epidural Feeding Preference: Breast Benefit of Breast Feed Discussed: Yes Circumcision: Yes INFORMED CONSENT Signature: with User ID: [email or web address]
--- NOTE | 2016-05-16 11:23 | Non Stress Test Report ---
Non Stress Test Datetime Report Generated by CPN: 05/16/2016 11:23 DEMOGRAPHIC EGA NST: 38.6 INDICATION Indication for Study: Ordered by Provider MONITORING Monitor Explained: Monitor Explained; Test Explained; Patient Verbalized Understanding Time on Monitor: 04/30/2016 09:28 Time off Monitor: 04/30/2016 09:53 NST Duration: 25 NST INTERVENTIONS NST Interventions: PO Hydration; IV Fluids Physician Notified NST: DR JONES Physician Notified NST: Dr Jones BABY A: [id number] BABY A Movement : Present Movement : Present Contraction Frequency : irregular FHR Baseline : 120 Accelerations : 15X15 Accelerations : 15X15 Decelerations : None Decelerations : None Variability : Moderate 6-25bpm Variability : Moderate 6-25bpm NST Review: Meets Criteria for Reactive NST NST Review: Meets Criteria for Reactive NST NST Review and Verified By : ELIJAH JENKINS RN NST Results: Reactive NST Results: Reactive NST REPORT Report Trigger: Send Report
--- NOTE | 2016-06-06 08:38 | DISCHARGE SUMMARY E ---
Discharge Summary NAME: DIMITRIS LUO : 1990 AGE: 25Y ADMITTED: 04/27/2016 DISCHARGED: 04/30/2016 REASON FOR ADMISSION: This is a term intrauterine with hypertension affecting the for admission for induction. HISTORY AND PHYSICAL: See dictated history and physical from 04/27/2016 for full details. HOSPITAL COURSE: The patient was admitted to the hospital where she undergoes a 3-day induction with Cervidil and Cytotec. The cervix undergoes no change during her multiple day induction. testing throughout the induction days was reassuring. The patient's blood pressures remained stable during her 3 days within normal limits and her PIH labs were within normal limits during her entire stay. On day number 3, since there had been no cervical change, her testing has been reassuring, her blood pressures have been within normal limits and her labs have been within normal limits, in discussion with the patient she has elected to be discharged home with close followup with the office 2 times per week. She understands that at any point in time, she may be readmitted to the hospital where she will have to undergo induction and if that induction fails, she may have to undergo a section. She was also given strict PIH and preeclamptic precautions. DISCHARGE INSTRUCTIONS: 1. Discharge patient to home. 2. Diet: Low-salt diet. 3. Followup interval is in 2 day with [facility]. SPECIAL INSTRUCTIONS: The patient was instructed to call MD if temperature greater than 101.5, patient reports regular uterine contractions, vaginal bleeding or loss of fluid, also headache unresponsive to Tylenol, spot in vision and right upper quadrant pain. DISCHARGE MEDICATIONS: vitamins. DICTATING PHYSICIAN: Erick Salinas DO [id number] PHY#: [id number] ID: [id number] JOB#: [id number] ACCT: [id number] cc:Erick Salinas D.O. >
== END 2016-04-30 10:27 | disposition home or self-care (01) | DRG 781 ==
LOC: LC 22:29 → LR 23:44
PROVIDERS: ADMIT Obstetrics & Gynecology; ATTEND Obstetrics & Gynecology
PROC: 3E0P7GC Introduction of Other Therapeutic Substance into Female Reproductive, Via Natural or Artificial Opening (ICD-10-PCS; principal; 2016-04-27)
PROC: 4A1HXCZ Monitoring of Products of Conception, Cardiac Rate, External Approach (ICD-10-PCS; 2016-04-27)
DX: O76 Abnormality in fetal heart rate and rhythm complicating labor and delivery (principal); O16.3 Unspecified maternal hypertension, third trimester; O61.0 Failed medical induction of labor; Z87.891 Personal history of nicotine dependence; Z3A.38 38 weeks gestation of pregnancy
CPT/HCPCS: 36415; 59025; 76815; 80307; 81001; 85025; 86592; 86850; 86900; 86901; 86920; J2300; J2590; J3490

== ENCOUNTER 2016-05-16 11:38 | Inpatient (IN) | payer BC ==
[~2016-05-16 11:38] MED LIST: DEXAMETHASONE SOD PHOSPHATE INJ 4 MG/1 ML VIAL ONE; KETOROLAC TROMETHAMINE 60 MG/2 ML SDV ONE; METOCLOPRAMIDE HCL INJ/PF 10 MG/2 ML SDV ONE; ONDANSETRON HCL INJ/PF 4 MG/2 ML SDV ONE; PHENYLEPHRINE HCL INJ/PF 10 MG/1 ML SDV ONE
[2016-05-16] MEDS ORDERED: DINOPROSTONE 10 MG VAGINAL INSERT.SR PV PRN (12:04)
[2016-05-16] MEDS ORDERED: RINGERS SOLUTION,LACTATED 300 ML IV ONE (12:04)
[2016-05-16] MEDS ORDERED: DINOPROSTONE 10 MG VAGINAL INSERT.SR ONE ×2 (12:55→21:09)
[2016-05-16] MEDS: RINGERS SOLUTION,LACTATED 1,000 ML IV PRN ×2 (12:59→21:26)
[2016-05-16 13:06] LABS: ABSOLUTE EOSINOPHILS # (AUTO) 0.1 10^3/uL (0.0-0.6); ABSOLUTE NEUT (AUTO) 8.9 10^3/uL (1.7-8.2); BASOPHILS % (AUTO) 0.3 % (0-2); EOSINOPHILS % (AUTO) 0.5 % (0-6); HEMATOCRIT 34.6 % (36.0-47.0); HEMOGLOBIN 11.7 g/dL (12.0-15.5); HGB HCT DIFFERENCE 0.5; LYMPHOCYTES % (AUTO) 16.8 % (13-45); MEAN CORPUSCULAR HEMOGLOBIN 27.8 pg (27.0-33.4); MEAN CORPUSCULAR HGB CONC 33.8 g/dL (32.0-36.0); MEAN CORPUSCULAR VOLUME 82 fl (80-97); MONOCYTES % (AUTO) 8.1 % (3-13); RED CELL DISTRIBUTION WIDTH 13.8 % (11.5-14.0); SEGMENTED NEUTROPHILS % (AUTO) 74.3 % (42-78); WHITE BLOOD COUNT 11.9 10^3/uL (4.0-10.5)
[2016-05-16 13:08] LABS: APPEARANCE,URINE CLOUDY; BILIRUBIN,URINE NEGATIVE (NEGATIVE); GLUCOSE, URINE NEGATIVE (NEGATIVE); KETONES,URINE NEGATIVE (NEGATIVE); LEUKOCYTE ESTERASE,URINE MODERATE (NEGATIVE); NITRITE,URINE NEGATIVE (NEGATIVE); PROTEIN,URINE NEGATIVE (NEGATIVE); URINE SPECIFIC GRAVITY 1.025; UROBILINOGEN,URINE NEGATIVE mg/dL (<2.0)
[2016-05-16 13:27] LABS: URINE BARBITURATES SCREEN NEGATIVE; URINE METHADONE SCREEN NEGATIVE; URINE OPIATES LOW NEGATIVE; URINE PHENCYCLIDINE SCREEN NEGATIVE
--- NOTE | 2016-05-16 20:01 | L&D Flow Sheet ---
LD Flowsheet Datetime Report Generated by CPN: 05/16/2016 20:00 Datetime: 05/16/2016 19:55 Pulse: 82 (QS system process) SpO2 (%): 99 (QS system process) LaborFlag: Antepartum (QS system process) Datetime: 05/16/2016 19:39 Vital Signs NBP Sys/Lashell/Mean (mmHg): 124 (QS system process) : 87 (QS system process) : 102 (QS system process) Pulse: 82 (QS system process) LaborFlag: Antepartum (QS system process) Datetime: 05/16/2016 19:12 Communication Comments: Report from S Winston RN, care assume d (Judy Arleen, RN) Datetime: 05/16/2016 19:08 Vital Signs NBP Sys/[place]hell/Mean (mmHg): 135 (QS system process) : 91 (QS system process) : 104 (QS system process) Pulse: 83 (QS system process) LaborFlag: Antepartum (QS system process) Datetime: 05/16/2016 19:00 Respirations: 18 (Tavo Winston, RN) Uterine Activity Monitor Mode: External; Palpation (Tavo Montero, RN) Frequency (min): uterine irritability noted (Tavo Traceyeet, RN) Resting Tone (Palpate): Relaxed (Tavo Yifleet, RN) Assessment A Monitor Mode: External US (Tavo Winston, RN) FHR Baseline Rate : 145 (Tavo Winston, RN) Variability: Moderate 6-25 bpm (Tavo Winston, RN) Accelerations: 15X15 (Tavo Winston, RN) Decelerations: None (Tavo Winston, RN) Pain Presence: None/Denies (Tavo Winston, RN) Communication Communication: RN at Bedside; RN Reviewed Strip (Tavo Winston, RN) LaborFlag: Antepartum (QS system process) Datetime: 05/16/2016 18:55 Communication Comments: Dr Salinas notified of blood glucose level, PM insulin held and given meal tray to eat now. (Tavo Montero, RN) Datetime: 05/16/2016 18:45 Uterine Activity Monitor Mode: External; Palpation (Gloria Espinoza, RN) Frequency (min): irritability (Gloria Espinoza, RN) Quality: Mild (Gloria Espinoza RN) Resting Tone (Palpate): Relaxed (Gloria Espinoza RN) Assessment A Monitor Mode: External US (Gloria Espinoza, RN) FHR Baseline Rate : 150 (Gloria Espinoza, RN) Variability: Moderate 6-25 bpm (Gloria Espinoza, RN) Accelerations: 10X10 (Gloria Espinoza, RN) Decelerations: None (Gloria Espinoza, RN) Datetime: 05/16/2016 18:38 Vital Signs NBP Sys/[place]hell/Mean (mmHg): 117 (QS system process) : 83 (QS system process) : 96 (QS system process) Pulse: 101 (QS system process) LaborFlag: Antepartum (QS system process) Datetime: 05/16/2016 18:15 Respirations: 16 (Tavo Winston, RN) Uterine Activity Monitor Mode: External; Palpation (Tavo Winston, RN) Frequency (min): irregular with uterine irritability (Tavo Winston, RN) Quality: Mild (Tavo Winston, RN) Resting Tone (Palpate): Relaxed (Tavo Winston, RN) Assessment A Monitor Mode: External US (Tavo Winston, RN) FHR Baseline Rate : 140 (Tavo Winston, RN) Variability: Moderate 6-25 bpm (Tavo Winston, RN) Accelerations: 15X15 (Tavo Winston, RN) Decelerations: None (Tavo Winston, RN) Pain Presence: None/Denies (Tavo Winston, RN) Maternal Assessment Level of Consciousness: Fully Conscious (Tavo Winston, RN) Headache: Denies (Tavo Winston, RN) Nausea/Vomiting: Denies (Tavo Winston, RN) RUQ Epigastric Pain: Denies (Tavo Winston, RN) Communication Communication: RN at Bedside; RN Reviewed Strip (Tavo Winston, RN) LaborFlag: Antepartum (QS system process) Datetime: 05/16/2016 18:09 Vital Signs NBP Sys/[place]hell/Mean (mmHg): 124 (QS system process) : 89 (QS system process) : 103 (QS system process) Pulse: 82 (QS system process) LaborFlag: Antepartum (QS system process) Datetime: 05/16/2016 17:45 Uterine Activity Monitor Mode: External; Palpation (Tavo Traceyeet, RN) Frequency (min): uterine irritability noted (Tavo Traceyeet, RN) Resting Tone (Palpate): Relaxed (Tavo Winston, RN) Assessment A Monitor Mode: External US (Tavo Winston, RN) FHR Baseline Rate : 135 (Tavo Winston, RN) Variability: Moderate 6-25 bpm (Tavo Winston, RN) Accelerations: 15X15 (Tavo Winston, RN) Decelerations: None (Tavo Winston, RN) Pain Presence: None/Denies (Tavo Winston, RN) Communication Communication: RN at Bedside; RN Reviewed Strip (Tavo Winston, RN) LaborFlag: Antepartum (QS system process) Datetime: 05/16/2016 17:39 Vital Signs NBP Sys/[place]hell/Mean (mmHg): 137 (QS system process) : 85 (QS system process) : 107 (QS system process) Pulse: 84 (QS system process) LaborFlag: Antepartum (QS system process) Datetime: 05/16/2016 17:15 Respirations: 18 (Tavo Montero, RN) Uterine Activity Monitor Mode: External; Palpation (Tavo Montero RN) Frequency (min): irregular with uterine irritability (Tavo Montero RN) Quality: Mild (Tavo Winston, RN) Resting Tone (Palpate): Relaxed (Tavo Winston, RN) Assessment A Monitor Mode: External US (Tavo Winston, RN) FHR Baseline Rate : 130 (Tavo Winston, RN) Variability: Moderate 6-25 bpm (Tavo Winston, RN) Accelerations: 15X15 (Tavo Winston, RN) Decelerations: None (Tavo Winston, RN) Pain Presence: None/Denies (Tavo Winston, RN) Maternal Assessment Level of Consciousness: Fully Conscious (Tavo Winston, RN) Headache: Denies (Tavo Winston, RN) Nausea/Vomiting: Denies (Tavo Winston, RN) RUQ Epigastric Pain: Denies (Tavo Winston, RN) Communication Communication: RN at Bedside; RN Reviewed Strip (Tavo Winston, RN) LaborFlag: Antepartum (QS system process) Datetime: 05/16/2016 17:09 Pulse: 70 (QS system process) SpO2 (%): 98 (QS system process) LaborFlag: Antepartum (QS system process) Datetime: 05/16/2016 17:08 Vital Signs NBP Sys/[place]hell/Mean (mmHg): 114 (QS system process) : 59 (QS system process) : 80 (QS system process) Pulse: 78 (QS system process) LaborFlag: Antepartum (QS system process) Datetime: 05/16/2016 17:06 Monitor Interventions for FHR: Ultrasound Adjusted (Tavo Winston, RN) Comfort Measures: Rocking Chair (Tavo Winston, RN) Datetime: 05/16/2016 16:45 Respirations: 16 (Tavo Winston, RN) Uterine Activity Monitor Mode: External; Palpation (Tavo Winston, RN) Frequency (min): none (Tavo Winston, RN) Resting Tone (Palpate): Relaxed (Tavo Winston, RN) Contraction Comments: uterine irritability noted (Tavo Winston, RN) Assessment A Monitor Mode: External US (Tavo Winston, RN) FHR Baseline Rate : 125 (Tavo Winston, RN) Variability: Moderate 6-25 bpm (Tavo Winston, RN) Accelerations: 15X15 (Tavo Winston, RN) Decelerations: None (Tavo Winston, RN) Pain Presence: None/Denies (Tavo Winston, RN) Maternal Assessment Level of Consciousness: Fully Conscious (Tavo Winston, RN) Headache: Denies (Tavo Winston, RN) Nausea/Vomiting: Denies (Tavo Winston, RN) Communication Communication: RN at Bedside; RN Reviewed Strip (Tavo Yifleet, RN) LaborFlag: Antepartum (QS system process) Datetime: 05/16/2016 16:38 Vital Signs NBP Sys/[place]hell/Mean (mmHg): 118 (QS system process) : 80 (QS system process) : 94 (QS system process) Pulse: 85 (QS system process) LaborFlag: Antepartum (QS system process) Datetime: 05/16/2016 16:26 I/O Interventions: Up to BR (Tavo Montero, RN) Datetime: 05/16/2016 16:15 Respirations: 18 (Tavo Montero, RN) Uterine Activity Monitor Mode: External; Palpation (Tavo Montero RN) Frequency (min): none (Tavo Montero, RN) Resting Tone (Palpate): Relaxed (Tavo Winston, RN) Assessment A Monitor Mode: External US (Tavo Winston, RN) FHR Baseline Rate : 120 (Tavo Winston, RN) Variability: Moderate 6-25 bpm (Tavo Winston, RN) Accelerations: 15X15 (Tavo Winston, RN) Decelerations: None (Tavo Winston, RN) Pain Presence: None/Denies (Tavo Winston, RN) Communication Communication: RN at Bedside; RN Reviewed Strip (Tavo Winston, RN) LaborFlag: Antepartum (QS system process) Datetime: 05/16/2016 16:09 Vital Signs NBP Sys/[place]hell/Mean (mmHg): 107 (QS system process) : 64 (QS system process) : 80 (QS system process) Pulse: 83 (QS system process) LaborFlag: Antepartum (QS system process) Datetime: 05/16/2016 15:45 Respirations: 18 (Tavo Winston, RN) Temperature (F): 98.3 (Tavo Winston, RN) Temperature (C): 36.8 (QS system process) Uterine Activity Monitor Mode: External; Palpation (Tavo Winston, RN) Frequency (min): uterine irritability noted (Tavo Winston, RN) Resting Tone (Palpate): Relaxed (Tavo Winston, RN) Assessment A Monitor Mode: External US (Tavo Winston, RN) FHR Baseline Rate : 120 (Tavo Winston, RN) Variability: Moderate 6-25 bpm (Tavo Winston, RN) Accelerations: 15X15 (Tavo Winston, RN) Decelerations: None (Tavo Winston, RN) Pain Presence: None/Denies (Tavo Winston, RN) Pain Assessment Comments: No distress noted (Tavo Winston, RN) Maternal Assessment Level of Consciousness: Fully Conscious (Tavo Winston, RN) Headache: Denies (Tavo Winston, RN) Nausea/Vomiting: Denies (Tavo Winston, RN) RUQ Epigastric Pain: Denies (Tavo Winston, RN) Communication Communication: RN at Bedside; RN Reviewed Strip (Tavo Winston, RN) LaborFlag: Antepartum (QS system process) Datetime: 05/16/2016 15:41 Monitor Interventions for UA: [place] Adjusted (Tavo Winston, RN) Datetime: 05/16/2016 15:40 Vital Signs NBP Sys/Lashell/Mean (mmHg): 121 (QS system process) : 79 (QS system process) : 95 (QS system process) Pulse: 89 (QS system process) LaborFlag: Antepartum (QS system process) Datetime: 05/16/2016 15:39 Monitor Interventions for FHR: Ultrasound Adjusted (Tavo Winston, RN) Datetime: 05/16/2016 15:15 Respirations: 18 (Tavo Winston, RN) Uterine Activity Monitor Mode: External; Palpation (Tavo Winston, RN) Frequency (min): uterine irritability noted. (Tavo Winston, RN) Resting Tone (Palpate): Relaxed (Tavo Winston, RN) Assessment A Monitor Mode: External US (Tavo Winston, RN) FHR Baseline Rate : 125 (Tavo Winston, RN) Variability: Moderate 6-25 bpm (Tavo Winston, RN) Accelerations: 15X15 (Tavo Winston, RN) Decelerations: None (Tavo Winston, RN) Pain Presence: None/Denies (Tavo Winston, RN) Maternal Assessment Level of Consciousness: Fully Conscious (Tavo Winston, RN) Headache: Denies (Tavo Winston, RN) Nausea/Vomiting: Denies (Tavo Winston, RN) RUQ Epigastric Pain: Denies (Tavo Winston, RN) Communication Communication: RN at Bedside; RN Reviewed Strip (Tavo Winston, RN) LaborFlag: Antepartum (QS system process) Datetime: 05/16/2016 15:10 Vital Signs NBP Sys/Lashell/Mean (mmHg): 133 (QS system process) : 71 (QS system process) : 94 (QS system process) Pulse: 80 (QS system process) LaborFlag: Antepartum (QS system process) Datetime: 05/16/2016 15:05 I/O Interventions: Up to BR (Tavo Winston, RN) Datetime: 05/16/2016 14:45 Respirations: 16 (Tavo Winston, RN) Uterine Activity Monitor Mode: External; Palpation (Tavo Winston, RN) Frequency (min): irregular (Tavo Winston, RN) Quality: Mild (Tavo Winston, RN) Resting Tone (Palpate): Relaxed (Tavo Winston, RN) Assessment A Monitor Mode: External US (Tavo Winston, RN) FHR Baseline Rate : 120 (Tavo Winston, RN) Variability: Moderate 6-25 bpm (Tavo Winston, RN) Accelerations: 15X15 (Tavo Winston, RN) Decelerations: None (Tavo Winston, RN) Pain Presence: None/Denies (Tavo Winston, RN) Maternal Assessment Level of Consciousness: Fully Conscious (Tavo Winston, RN) Headache: Denies (Tavo Winston, RN) Nausea/Vomiting: Denies (Tavo Winston, RN) Communication Communication: RN at Bedside; RN Reviewed Strip (Tavo Winston, RN) LaborFlag: Antepartum (QS system process) Datetime: 05/16/2016 14:39 Vital Signs NBP Sys/Lashell/Mean (mmHg): 149 (QS system process) : 88 (QS system process) : 108 (QS system process) Pulse: 79 (QS system process) LaborFlag: Antepartum (QS system process) Datetime: 05/16/2016 14:34 Monitor Interventions for FHR: Ultrasound Adjusted (Tavo Winston, RN) Communication Communication: RN at Bedside (Tavo Winston, RN) Communication Comments: intermittently picking up maternal hr; RN adjusted monitors. (Tavo Winston, RN) Datetime: 05/16/2016 14:15 Respirations: 16 (Tavo Winston, RN) Uterine Activity Monitor Mode: External; Palpation (Tavo Winston, RN) Frequency (min): none/ denies (Tavo Winston, RN) Resting Tone (Palpate): Relaxed (Tavo Winston, RN) Assessment A Monitor Mode: External US (Tavo Winston, RN) FHR Baseline Rate : 125 (Tavo Winston, RN) Variability: Moderate 6-25 bpm (Tavo Winston, RN) Accelerations: 15X15 (Tavo Winston, RN) Decelerations: None (Tavo Winston, RN) Pain Presence: None/Denies (Tavo Winston, RN) Maternal Assessment Level of Consciousness: Fully Conscious (Tavo Winston, RN) Headache: Denies (Tavo Winston, RN) Nausea/Vomiting: Denies (Tavo Winston, RN) RUQ Epigastric Pain: Denies (Tavo Winston, RN) Communication Communication: RN at Bedside; RN Reviewed Strip (Tavo Winston, RN) LaborFlag: Antepartum (QS system process) Datetime: 05/16/2016 14:09 Vital Signs NBP Sys/[place]hell/Mean (mmHg): 123 (QS system process) : 84 (QS system process) : 99 (QS system process) Pulse: 82 (QS system process) LaborFlag: Antepartum (QS system process) Datetime: 05/16/2016 13:45 Respirations: 18 (Tavo Winston, RN) Uterine Activity Monitor Mode: External; Palpation (Tavo Winston, RN) Frequency (min): irregular/ pt denies feeling ctx (Tavo Winston, RN) Quality: Mild (Tavo Winston, RN) Resting Tone (Palpate): Relaxed (Tavo Winston, RN) Assessment A Monitor Mode: External US (Tavo Winston, RN) FHR Baseline Rate : 135 (Tavo Winston, RN) Variability: Moderate 6-25 bpm (Tavo Winston, RN) Accelerations: 15X15 (Tavo Winston, RN) Decelerations: None (Tavo Wisnton, RN) Pain Presence: None/Denies (Tavo Winston, RN) Maternal Assessment Level of Consciousness: Fully Conscious (Tavo Winston, RN) Headache: Denies (Tavo Winston, RN) Nausea/Vomiting: Denies (Tavo Winston, RN) RUQ Epigastric Pain: Denies (Tavo Winston, RN) Communication Communication: RN at Bedside; RN Reviewed Strip (Tavo Winston, RN) LaborFlag: Antepartum (QS system process) Datetime: 05/16/2016 13:39 Vital Signs NBP Sys/[place]hell/Mean (mmHg): 127 (QS system process) : 87 (QS system process) : 103 (QS system process) Pulse: 82 (QS system process) LaborFlag: Antepartum (QS system process) Datetime: 05/16/2016 13:15 Respirations: 18 (Tavo Winston, RN) Uterine Activity Monitor Mode: External; Palpation (Tavo Winston, RN) Frequency (min): none/ pt denies (Tavo Winston, RN) Resting Tone (Palpate): Relaxed (Tavo Winston, RN) Assessment A Monitor Mode: External US (Tavo Winston, RN) FHR Baseline Rate : 135 (Tavo Winston, RN) Variability: Moderate 6-25 bpm (Tavo Winston, RN) Accelerations: 15X15 (Tavo Winston, RN) Decelerations: None (Tavo Winston, RN) Pain Pain Scale: 1 (Tavo Traceyeet, RN) Pain Type: Contraction (Tavoximena YiWinston, RN) Pain Relief Measures: Comfort Measures (Tavo Yifleet, RN) Pain Coping: Talking Through Contractions; Declines Medication or Epidural (Tavo Yifleet, RN) Maternal Assessment Level of Consciousness: Fully Conscious (Tavo Yifleet, RN) Headache: Denies (Tavo Yifleet, RN) Nausea/Vomiting: Denies (Tavo Yifleet, RN) RUQ Epigastric Pain: Denies (Tavo Traceyeet, RN) Communication Communication: RN at Bedside; RN Reviewed Strip (Tavo Yifleet, RN) LaborFlag: Antepartum (QS system process) Datetime: 05/16/2016 13:09 Vital Signs NBP Sys/[place]hell/Mean (mmHg): 123 (QS system process) : 84 (QS system process) : 99 (QS system process) Pulse: 83 (QS system process) LaborFlag: Antepartum (QS system process) Datetime: 05/16/2016 13:00 Vaginal Exam Dilatation (cm): 1.0 (Tavo Winston, RN) Effacement (%): 60 (Tavo Winston, RN) Station: -2 (Tavo Winston, RN) Exam by: S Winston RN (Tavo Winston, RN) Vaginal Bleeding: None (Tavo Winston, RN) Cervix, Consistency: Soft (Tavo Winston, RN) Cervix, Position: Posterior (Tavo Winston, RN) Ibarra's Score Dilatation (cm): 1-2 cm (Tavo Winston, RN) Effacement: 60-70_ effaced (Tavo Winston, RN) Station: minus 2 (Tavo Winston, RN) Consistency: Soft (Tavo Winston, RN) Position: Posterior (Tavo Winston, RN) Total Ibarra's Score: 6 (QS system process) : 5-8 = Small percentage of induction failure (QS system process) Medications Cervical Ripening Agents: Cervidil (Tavo Winston, RN) Datetime: 05/16/2016 12:47 Patient Care IV/Blood Work: Labs Drawn (Tavo Winston, RN) Datetime: 05/16/2016 12:45 Uterine Activity Monitor Mode: External; Palpation (Tavo Winston, RN) Frequency (min): none (Tavo Winston, RN) Resting Tone (Palpate): Relaxed (Tavo Winston, RN) Assessment A Monitor Mode: External US (Tavo Winston, RN) FHR Baseline Rate : 145 (Tavo Winston, RN) Variability: Moderate 6-25 bpm (Tavo Winston, RN) Accelerations: 15X15 (Tavo Winston, RN) Decelerations: None (Tavo Winston, RN) Pain Presence: None/Denies (Tavo Winston, RN) Communication Communication: RN at Bedside; RN Reviewed Strip (Tavo Winston, RN) LaborFlag: Antepartum (QS system process) Datetime: 05/16/2016 12:39 Vital Signs NBP Sys/[place]hell/Mean (mmHg): 124 (QS system process) : 78 (QS system process) : 96 (QS system process) Pulse: 89 (QS system process) LaborFlag: Antepartum (QS system process) Datetime: 05/16/2016 12:30 Provider Reviewed Strip: Yes (Tavo Montero, RN) Communication Comments: Dr Salinas at bedside to obtain consent for induction and to discuss plan of care. (Tavo Montero, RN) Datetime: 05/16/2016 12:29 Patient Care IV/Blood Work: IV Started; IV Infusing per Order (Tavo Montero RN) Patient Care Comments: LR 300ml then 125ml/hr as ordered; 18G started R Hand, Site WNL, good blood return, infuses well, pt tolerated well. (Tavo Montero, RN) Datetime: 05/16/2016 12:16 Procedures: Consents Signed (Tavo Traceyeet, RN) Datetime: 05/16/2016 12:11 Pulse: 87 (QS system process) SpO2 (%): 97 (QS system process) LaborFlag: Antepartum (QS system process) Datetime: 05/16/2016 12:10 Monitor Interventions for FHR: Ultrasound Adjusted (Tavo Winston, RN) Comments: picking up maternal hr; RN at bedside. (Tavo Winston, RN) Patient Position/Activity: Left Lateral (Tavo Winston, RN) Datetime: 05/16/2016 12:08 Vital Signs NBP Sys/[place]hell/Mean (mmHg): 120 (QS system process) : 71 (QS system process) : 88 (QS system process) Pulse: 83 (QS system process) LaborFlag: Antepartum (QS system process) Datetime: 05/16/2016 12:00 Vaginal Bleeding: None (Tavo Winston, RN) Maternal Assessment Level of Consciousness: Fully Conscious (Tavo Montero RN) DTR's/Clonus: DTRs 2+; No Clonus (Tavo Montero RN) Headache: Denies (Tavo Montero RN) Breath Sounds, Left: Clear and Equal (Tavo Montero RN) Breath Sounds, Right: Clear and Equal (Tavo Montero RN) Nausea/Vomiting: Denies (Tavo Montero RN) RUQ Epigastric Pain: Denies (Tavo Montero RN) Patient Position/Activity: Low Fowlers (Tavo Montero RN) Comfort Measures: Breathing/Relaxation (Tavo Montero RN) I/O Interventions: Clear Liquids Given; Up to BR (Tavo Montero RN) Teaching Instructional Method: Demo; Verbal; Patient Instructed; Family/Support Person Instructed; Verbalized Understanding (aTvo Montero RN) Plan of Care: Plan of Care Discussed; Vaginal Delivery; Induction (Tavo Montero RN) Unit Routine: [place] to Room; Call [place]ena; Bed; Visiting Policy; Waiting Areas; Security; Phone/Cell Phone Use; Photography; Unit Personnel; Handwashing; Flu/Illness Precautions; Monitoring; IV Pumps; Safety/Fall Risk Prevention; Diet/Nutrition Services; Bathroom Privileges; Routine Time Outs; Medications (Tavo Montero RN) Labor/Induction: Labor Stages; Cervical Ripening; Induction (Tavo Montero RN) Pain Management: PRN Medications; Pain Scale/Goals; Comfort Measures (Tavo Montero RN) Medications: Cervical Ripening (Tavo Montero RN) Related: Common Discomforts of ; Maternal Physical Changes; Maternal Emotional Changes; Nutrition; Hydration; Activity and Rest (Tavo Montero RN) Datetime: 04/30/2016 09:53 LaborFlag: Antepartum (QS system process) Datetime: 04/30/2016 09:32 Temperature (C): 36.6 (QS system process) LaborFlag: Antepartum (QS system process) Datetime: 04/30/2016 07:22 Temperature (C): 36.9 (QS system process) LaborFlag: Antepartum (QS system process) Datetime: 04/30/2016 06:52 LaborFlag: Antepartum (QS system process) Datetime: 04/30/2016 06:22 LaborFlag: Antepartum (QS system process) Datetime: 04/29/2016 23:01 Temperature (C): 37.1 (QS system process) LaborFlag: Antepartum (QS system process) Datetime: 04/29/2016 23:00 LaborFlag: Antepartum (QS system process) Datetime: 04/29/2016 21:31 LaborFlag: Antepartum (QS system process) Datetime: 04/29/2016 21:02 LaborFlag: Antepartum (QS system process) Datetime: 04/29/2016 20:01 LaborFlag: Antepartum (QS system process) Datetime: 04/29/2016 19:31 LaborFlag: Antepartum (QS system process) Datetime: 04/29/2016 19:27 Temperature (C): 36.7 (QS system process) LaborFlag: Antepartum (QS system process) Datetime: 04/29/2016 19:01 LaborFlag: Antepartum (QS system process) Datetime: 04/29/2016 18:34 Temperature (C): 36.9 (QS system process) LaborFlag: Antepartum (QS system process) Datetime: 04/29/2016 18:31 LaborFlag: Antepartum (QS system process) Datetime: 04/29/2016 18:01 LaborFlag: Antepartum (QS system process) Datetime: 04/29/2016 17:32 LaborFlag: Antepartum (QS system process) Datetime: 04/29/2016 17:01 LaborFlag: Antepartum (QS system process) Datetime: 04/29/2016 16:31 LaborFlag: Antepartum (QS system process) Datetime: 04/29/2016 16:03 LaborFlag: Antepartum (QS system process) Datetime: 04/29/2016 15:31 LaborFlag: Antepartum (QS system process) Datetime: 04/29/2016 15:30 Temperature (C): 36.8 (QS system process) LaborFlag: Antepartum (QS system process) Datetime: 04/29/2016 15:01 LaborFlag: Antepartum (QS system process) Datetime: 04/29/2016 13:30 LaborFlag: Antepartum (QS system process) Datetime: 04/29/2016 11:05 LaborFlag: Antepartum (QS system process) Datetime: 04/29/2016 08:18 LaborFlag: Antepartum (QS system process) Datetime: 04/29/2016 07:48 LaborFlag: Antepartum (QS system process) Datetime: 04/29/2016 07:18 LaborFlag: Antepartum (QS system process) Datetime: 04/29/2016 06:54 LaborFlag: Antepartum (QS system process) Datetime: 04/29/2016 06:48 LaborFlag: Antepartum (QS system process) Datetime: 04/29/2016 06:18 LaborFlag: Antepartum (QS system process) Datetime: 04/29/2016 05:48 LaborFlag: Antepartum (QS system process) Datetime: 04/29/2016 05:19 LaborFlag: Antepartum (QS system process) Datetime: 04/29/2016 04:48 LaborFlag: Antepartum (QS system process) Datetime: 04/29/2016 04:18 LaborFlag: Antepartum (QS system process) Datetime: 04/29/2016 03:21 LaborFlag: Antepartum (QS system process) Datetime: 04/29/2016 02:48 LaborFlag: Antepartum (QS system process) Datetime: 04/29/2016 02:19 LaborFlag: Antepartum (QS system process) Datetime: 04/29/2016 01:48 LaborFlag: Antepartum (QS system process) Datetime: 04/29/2016 01:18 LaborFlag: Antepartum (QS system process) Datetime: 04/29/2016 00:48 LaborFlag: Antepartum (QS system process) Datetime: 04/29/2016 00:18 LaborFlag: Antepartum (QS system process) Datetime: 04/28/2016 23:48 LaborFlag: Antepartum (QS system process) Datetime: 04/28/2016 23:18 LaborFlag: Antepartum (QS system process) Datetime: 04/28/2016 22:18 LaborFlag: Antepartum (QS system process) Datetime: 04/28/2016 21:48 LaborFlag: Antepartum (QS system process) Datetime: 04/28/2016 21:19 LaborFlag: Antepartum (QS system process) Datetime: 04/28/2016 20:48 LaborFlag: Antepartum (QS system process) Datetime: 04/28/2016 19:39 Temperature (C): 36.8 (QS system process) LaborFlag: Antepartum (QS system process) Datetime: 04/28/2016 19:37 LaborFlag: Antepartum (QS system process) Datetime: 04/28/2016 19:07 LaborFlag: Antepartum (QS system process) Datetime: 04/28/2016 18:37 LaborFlag: Antepartum (QS system process) Datetime: 04/28/2016 18:08 LaborFlag: Antepartum (QS system process) Datetime: 04/28/2016 17:37 LaborFlag: Antepartum (QS system process) Datetime: 04/28/2016 17:08 LaborFlag: Antepartum (QS system process) Datetime: 04/28/2016 16:37 LaborFlag: Antepartum (QS system process) Datetime: 04/28/2016 16:08 LaborFlag: Antepartum (QS system process) Datetime: 04/28/2016 15:37 LaborFlag: Antepartum (QS system process) Datetime: 04/28/2016 15:07 LaborFlag: Antepartum (QS system process) Datetime: 04/28/2016 14:38 LaborFlag: Antepartum (QS system process) Datetime: 04/28/2016 13:38 LaborFlag: Antepartum (QS system process) Datetime: 04/28/2016 13:11 Temperature (C): 36.7 (QS system process) LaborFlag: Antepartum (QS system process) Datetime: 04/28/2016 13:07 LaborFlag: Antepartum (QS system process) Datetime: 04/28/2016 12:37 LaborFlag: Antepartum (QS system process) Datetime: 04/28/2016 12:07 LaborFlag: Antepartum (QS system process) Datetime: 04/28/2016 11:38 LaborFlag: Antepartum (QS system process) Datetime: 04/28/2016 11:06 LaborFlag: Antepartum (QS system process) Datetime: 04/28/2016 10:07 LaborFlag: Antepartum (QS system process) Datetime: 04/28/2016 09:06 LaborFlag: Antepartum (QS system process) Datetime: 04/28/2016 08:07 Temperature (C): 36.6 (QS system process) LaborFlag: Antepartum (QS system process) Datetime: 04/28/2016 08:03 LaborFlag: Antepartum (QS system process) Datetime: 04/28/2016 07:47 LaborFlag: Antepartum (QS system process) Datetime: 04/28/2016 07:34 LaborFlag: Antepartum (QS system process) Datetime: 04/28/2016 07:02 LaborFlag: Antepartum (QS system process) Datetime: 04/28/2016 06:47 LaborFlag: Antepartum (QS system process) Datetime: 04/28/2016 06:32 LaborFlag: Antepartum (QS system process) Datetime: 04/28/2016 06:17 LaborFlag: Antepartum (QS system process) Datetime: 04/28/2016 06:02 LaborFlag: Antepartum (QS system process) Datetime: 04/28/2016 05:47 LaborFlag: Antepartum (QS system process) Datetime: 04/28/2016 05:33 LaborFlag: Antepartum (QS system process) Datetime: 04/28/2016 05:18 LaborFlag: Antepartum (QS system process) Datetime: 04/28/2016 05:02 LaborFlag: Antepartum (QS system process) Datetime: 04/28/2016 04:47 LaborFlag: Antepartum (QS system process) Datetime: 04/28/2016 04:32 LaborFlag: Antepartum (QS system process) Datetime: 04/28/2016 04:17 LaborFlag: Antepartum (QS system process) Datetime: 04/28/2016 04:02 LaborFlag: Antepartum (QS system process) Datetime: 04/28/2016 03:47 LaborFlag: Antepartum (QS system process) Datetime: 04/28/2016 03:33 LaborFlag: Antepartum (QS system process) Datetime: 04/28/2016 03:17 LaborFlag: Antepartum (QS system process) Datetime: 04/28/2016 03:02 LaborFlag: Antepartum (QS system process) Datetime: 04/28/2016 01:32 LaborFlag: Antepartum (QS system process) Datetime: 04/28/2016 01:17 LaborFlag: Antepartum (QS system process) Datetime: 04/28/2016 01:02 LaborFlag: Antepartum (QS system process) Datetime: 04/28/2016 00:47 LaborFlag: Antepartum (QS system process) Datetime: 04/28/2016 00:32 LaborFlag: Antepartum (QS system process) Datetime: 04/28/2016 00:18 LaborFlag: Antepartum (QS system process) Datetime: 04/28/2016 00:03 LaborFlag: Antepartum (QS system process) Datetime: 04/27/2016 23:34 LaborFlag: Antepartum (QS system process) Datetime: 04/27/2016 23:18 LaborFlag: Antepartum (QS system process) Datetime: 04/27/2016 23:04 Temperature (C): 36.7 (QS system process) LaborFlag: Antepartum (QS system process) Datetime: 04/27/2016 22:56 LaborFlag: Antepartum (QS system process) Datetime: 04/27/2016 22:51 LaborFlag: Antepartum (QS system process)
[2016-05-16] MEDS ORDERED: CITRIC ACID/SODIUM CITRATE ORAL SOLN 15 ML UDCUP ONE ×2 (22:46→23:02)
[2016-05-16] MEDS ORDERED: CEFAZOLIN 2 GM/D5W RTU 0 GM/0 ML RTUPB IV ONE (22:46)
[2016-05-16] MEDS ORDERED: CEFAZOLIN 2 GM/D5W RTU 2 GM/50 ML RTUPB IV ONE (23:02)
[2016-05-16] MEDS ORDERED: OXYTOCIN 10 UNIT/ML VIAL ONE (23:12)
[2016-05-16] MEDS ORDERED: OXYTOCIN/NORMAL SALINE 20 UNIT/1,000 ML RTUINJ ONE (23:12)
[2016-05-16] MEDS ORDERED: EPHEDRINE SULFATE INJ 50 MG/1 ML AMPULE ONE (23:12)
[2016-05-16] MEDS ORDERED: MIDAZOLAM 2 MG/2 ML INJ ONE (23:13)
[2016-05-16] MEDS ORDERED: FENTANYL CITRATE INJ/PF 100 MCG/2 ML AMPUL ONE (23:13)
[2016-05-16] MEDS ORDERED: METHYLERGONOVINE MALEATE INJ/PF 0.2 MG/1 ML AMPULE ONE (23:39)
[2016-05-16] MEDS ORDERED: PROMETHAZINE HCL INJ 25 MG/1 ML VIAL IV PRN ×2 (23:51)
[2016-05-16] MEDS ORDERED: MORPHINE SULFATE 10 MG/ML INJ IV PRN (23:51)
[2016-05-16] MEDS ORDERED: DIPHENHYDRAMINE HCL 50 MG/ML VIAL IV PRN (23:51)
[2016-05-16] MEDS ORDERED: FENTANYL CITRATE INJ/PF 100 MCG/2 ML AMPUL IV PRN ×3 (23:51)
[2016-05-17] MEDS ORDERED: ACETAMINOPHEN 100 ML IV ONE
[2016-05-17] MEDS ORDERED: MISOPROSTOL 0.2 MG TABLET ONE (00:09)
[2016-05-17] MEDS ORDERED: MEPERIDINE HCL/PF INJ 25 MG/1 ML DISP.SYRIN ONE (01:07)
[2016-05-17] MEDS: MEPERIDINE HCL/PF INJ 25 MG/1 ML DISP.SYRIN IV PRN ×2 (01:07→01:19)
[2016-05-17] MEDS ORDERED: OXYTOCIN 10 UNIT/ML VIAL ONE (01:39)
--- NOTE | 2016-05-17 01:44 | Delivery Summary ---
Del Sum A-C Datetime Report Generated by CPN: 05/17/2016 01:44 ADMISSION DATA Chief Complaint: Scheduled Induction of Labor Indication for Induction: Oligohydramnios Indication for Induction Comment: NORI 4.5cm Admission Impression: Postterm, Intrauterine Admit Provider Comments: Will admit for Induction secondary to the deccels DELIVERY PERSONNEL Delivery Doctor:: Erick Salinas DO Anesthesiologist:: Vince Bae MD ROOM ATTENDANTS:: Rosie Gutiérrez CRNA Labor and Delivery Nurse:: Judy Bacon RN Neonatal Nurse Practitioner:: RAFAEL Trejo Nursery Nurse:: Mary Anne Lovell RN Production Manufacturing Worker/COUTURIERE: Elif Orozco, ELECTRIC MULE DRIVER Production Manufacturing Worker/COUTURIERE: Lisa Mojica ST Additional Personnel: : Velasquez Susannahkarla, COUTURIERE MATERNAL INFORMATION Delivery Anesthesia: Spinal Medications After Delivery: Pitocin Drip 20 Units/1000ml NSS; Methergine 0.2mg IM; Other-Please Comment Meds After Delivery Comment: cytotec 1000 mcg ID Maternal Complications: Other Other Maternal Complications: Oligio LABOR SUMMARY EDC: 05/08/2016 00:00 No. Babies in Womb: 1 Attempted: No LABOR INFORMATION Reason for Induction: Oligohydramnios Cervical Ripening Agents: Cervidil Oxytocin: N/A Group B Beta Strep: negative STAGES OF LABOR Stage 3 hr: 24 Stage 3 min: 1 VAGINAL DELIVERY Episiotomy: None Laceration Extension: N/A Laceration Type: None Sponge Count Correct: N/A CSECTION DELIVERY Primary Indication: Prolonged Deceleration Phase Secondary Indication: N/A CSection Urgency: Emergency CSection Incidence: Primary Labor: No Labor Elective: Nonelective CSection Incision: Lower Uterine Transverse BABY A INFORMATION Delivery Date/Time: 05/16/2016 23:32 Method of Delivery: Born in Route : No : N/A Forceps: N/A Vacuum Extraction: N/A Shoulder Dystocia : No PRESENTATION/POSITION BABY A Presentation: Cephalic Cephalic Presentation: Vertex Breech Presentation: N/A PLACENTA INFORMATION BABY A Placenta Delivery Time : 05/17/2016 23:33 Placenta Method of Delivery: Manual Removal Placenta Status: Delivered SCORES BABY A Heart Rate 1 min: >100 bpm Resp Effort 1 min: Good Cry Reflex Irritability 1 min: Cough or Sneeze or Pulls Away Muscle Tone 1 min: Active Motion Color 1 min: Blue/Pale Resuscitation Effort 1 min: Tactile Stimulation SCORE 1 MIN: 8 Heart Rate 5 min: >100 bpm Resp Effort 5 min: Good Cry Reflex Irritability 5 min: Cough or Sneeze or Pulls Away Muscle Tone 5 min: Active Motion Color 5 min: Body [place], Extremities Blue Resuscitation Effort 5 min: Tactile Stimulation SCORE 5 MIN: 9 INFANT INFORMATION BABY A Gestational Age at Delivery: 41.1 Gestational Status: Late Term- 41- 41.6 Weeks Outcome : Liveborn Condition : Stable Sex: Male IDENTIFICATION BABY A Infant Verification Date/Time: 05/16/2016 23:38 ID Band Number: [id number] Mother's Name Verified: Yes RN Verifying : , RN Additional Verifying Personnel: Kelly, COUTURIERE/US WEIGHT/LENGTH BABY A Infant Birthweight (gm): 3475 Weight (lb): 7 Weight (oz): 11 Length (in): 20.00 Infant Length (cm): 50.80 CORD INFORMATION BABY A No. Cord Vessels: 3 Nuchal Cord : N/A Cord Blood Taken: Yes-For Eval (Mom's Blood Type - or O+) Infant Suction: Mouth; Nose ASSESSMENT BABY A Infant Complications: Other Infant Complications- Other: multiple spontaneous prolonged decels Skin to Skin: No Concrete Pipe Machine Operator/ALS Called : No Infant Care By: Martina Lovell RN/ Shantel HALL Transferred To: Nursery
[2016-05-17] MEDS ORDERED: OXYTOCIN/NORMAL SALINE 1,000 ML IV PRN (01:49)
[2016-05-17] MEDS ORDERED: DIPH/PERTUSS(ACELL)/TETANUS VAC/PF 0.5 ML SYR (>=10YO) IM PRN (01:49)
[2016-05-17] MEDS ORDERED: RINGERS SOLUTION,LACTATED 1,000 ML IV PRN (01:49)
[2016-05-17] MEDS ORDERED: PROMETHAZINE HCL INJ 25 MG/1 ML VIAL IV PRN (01:49)
[2016-05-17] MEDS ORDERED: MEASLES,MUMPS&RUBELLA VACC/PF 0.5 ML VIAL SUBCUT PRN (01:49)
[2016-05-17] MEDS ORDERED: SIMETHICONE 80 MG TAB.CHEW PO PRN (01:49)
[2016-05-17] MEDS ORDERED: ACETAMINOPHEN 325 MG TABLET PO PRN (01:49)
[2016-05-17] MEDS ORDERED: OXYCODONE-ACETAMINOPHEN 5-325 MG TABLET PO PRN (01:49)
[2016-05-17] MEDS ORDERED: FENTANYL CITRATE INJ/PF 100 MCG/2 ML AMPUL ONE (01:57)
--- NOTE | 2016-05-17 02:30 | Admission Physical ---
Datetime Report Generated by CPN: 05/17/2016 02:30 CURRENT ADMISSION Chief Complaint: Scheduled Induction of Labor Chief Complaint: Uterine Contractions Indication for Induction: Oligohydramnios Indication for Induction: Other Indication for Induction- Other: NORI 4.5cm Indication for Induction- Other: 2 Spontaneous deccels to the 60's lasting 4mins and 6 mins Admit Plan: Admit to Unit; Initiate Labor Induction Protocol Admit Plan: Admit to Unit; Initiate Labor Protocol ALLERGIES Medication Allergies: No Medication Allergies: No Known Allergies (02/15/2013) Latex: No Latex Allergies OBSTETRICAL HISTORY EDC: 05/08/2016 00:00 : 1 Para: 0 Term: 0 : 0 SAB: 0 IAB: 0 Ectopic: 0 Livin Cesareans: 0 VBACs: 0 Multiple Births: 0 Gestational Diabetes: No Rh Sensitization: No Incompetent Cervix: No FELICIA: No Infertility: Yes ART Treatment: No Uterine Anomaly: No IUGR: No Hx Previous C/S: No Macrosomia: No Hx Loss/Stillborn: No PIH: No Hx : No Placenta Previa/Abruption: No Depression/PP Depression: No PTL/PROM: No Post Hemorrhage: No Current Procedures: Ultrasound; NST; Doppler Flow Study Obstetrical History Comments: g1 - current - clomid conception SEE RECORDS Alcohol: No Marijuana : No Cocaine: No Other Illicit Drugs: No Cigarettes: Former Smoker. [id number] MEDICAL HISTORY Diabetes: No Blood Transfusion: No Pulmonary Disease (Asthma, TB): No Breast Disease: No Hypertension: No Mixed Crop And Livestock Farmer Surgery: No Heart Disease: No Hosp/Surgery: No Autoimmune Disorder: No Anesthetic Complications: No Kidney Disease: No Abnormal Pap Smear: No Neuro/Epilepsy: No Psychiatric Disorders: No Other Medical Diseases: No Hepatitis/Liver Disease: No Significant Family History: No Varicosities/Phlebitis: No Trauma/Violence : No Thyroid Dysfunction: No Medical History Comments: appendectomy INFECTIOUS HISTORY Gonorrhea: No Genital Herpes: No Chlamydia: No Tuberculosis: No Syphilis: No Hepatitis: No HIV/AIDS Exposure: No Rash or Viral Illness: No HPV: No PHYSICAL EXAM General: Normal General: Normal HEENT: Normal HEENT: Normal Neurologic: Normal Neurologic: Normal Thyroid: Deferred Thyroid: Deferred Heart: Normal Heart: Normal Lungs: Normal Lungs: Normal Breast: Deferred Breast: Deferred Back: Normal Back: Normal Abdomen: Normal Abdomen: Normal Genitourinary Exam: Normal Genitourinary Exam: Normal Extremities: Normal Extremities: Normal DTRs: Normal DTRs: Normal Pelvic Type: Adequate Pelvic Type: Adequate Vital Signs: Reviewed; Within Normal Limits Vital Signs: Reviewed; Within Normal Limits VAGINAL EXAM Dilatation: 1 Dilatation: 0 Effacement: 60 Effacement: 0 Station: -2 Station: -3 MEMBRANES Membranes: Intact Membranes: Intact FETUS A EGA: 41.1 EGA: 38.4 Monitoring: External US Monitoring: External US FHR- Baseline: 140 FHR- Baseline: 140 Variability: Moderate 6-25bpm Variability: Moderate 6-25bpm Accelerations: 15X15 Accelerations: 15X15 Decelerations: None FHR Category: Category I FHR Category: Category II FHR Comments: 2 spontaneous deccels to 60's lasting 4mins and 6mins Admit Comment: Will admit for Induction secondary to the deccels PLANS FOR LABOR AND DELIVERY Labor and Delivery: None Pain Management: Epidural Feeding Preference: Breast Benefit of Breast Feed Discussed: Yes Circumcision: Yes INFORMED CONSENT Signature: with User ID: Davina Signature: with User ID: CHays : with User ID: Davina
[2016-05-17] MEDS: HYDROMORPHONE HCL INJ/PF 2 MG/ML AMPULE IV PRN ×3 (04:14→11:47)
[2016-05-17] MEDS: KETOROLAC TROMETHAMINE INJ/PF 30 MG/1 ML SDV IV SCH ×3 (05:29→21:11)
[2016-05-17] MEDS ORDERED: RINGERS SOLUTION,LACTATED 500 ML IV ONE (06:45)
[2016-05-17 06:50] LABS: HEMATOCRIT 30.6 % (36.0-47.0); HEMOGLOBIN 10.4 g/dL (12.0-15.5); HGB HCT DIFFERENCE 0.6; MEAN CORPUSCULAR HEMOGLOBIN 27.8 pg (27.0-33.4); MEAN CORPUSCULAR HGB CONC 33.9 g/dL (32.0-36.0); MEAN CORPUSCULAR VOLUME 82 fl (80-97); RED BLOOD COUNT 3.73 10^6/uL (3.72-5.28); RED CELL DISTRIBUTION WIDTH 14.1 % (11.5-14.0); WHITE BLOOD COUNT 19.9 10^3/uL (4.0-10.5)
[2016-05-17] MEDS: DOCUSATE SODIUM 100 MG CAPSULE PO SCH ×2 (10:10→17:30)
[2016-05-17] MEDS: PRENATAL VITAMIN W-O CA NO5/FE FUMARATE/FA CAPSULE PO SCH (10:10)
--- NOTE | 2016-05-17 10:33 | PDOC PROGRESS REPORT ---
Subjective-OB Subjective: Post Delivery Day: 1 25 year old. Denies any needs at this time, pain moderately well controlled, has not been up yet, tolerating diet, arroyo still in place. Physical Exam (OB) Vital Signs: Temp Pulse Resp BP Pulse Ox 98.1 F 83 15 125/75 97 05/17/16 08:08 05/17/16 08:08 05/17/16 08:08 05/17/16 08:08 05/17/16 08:08 Intake & Output 05/16/16 05/17/16 05/18/16 06:59 06:59 06:59 Intake Total 450 Output Total 100 625 Balance -100 -175 Weight 99.85 kg - Dressing Removed: No Incision: Dressing - Lochia Lochia Amount: Scant < 10 ml Lochia Color: Rubra/Red - Abdomen Description: Soft, Round Hernia Present: No Fundal Description: Firm, Midline Fundal Height: u/u - u/2 Objective-Diagnostic Laboratory: 05/17/16 06:39 05/16/16 05/16/16 05/16/16 12:09 12:46 12:46 WBC 11.9 H RBC 4.20 Hgb 11.7 L Hct 34.6 L MCV 82 MCH 27.8 MCHC 33.8 RDW 13.8 Plt Count 204 Seg Neutrophils % 74.3 Lymphocytes % 16.8 Monocytes % 8.1 Eosinophils % 0.5 Basophils % 0.3 Absolute Neutrophils 8.9 H Absolute Lymphocytes 2.0 Absolute Monocytes 1.0 Absolute Eosinophils 0.1 Absolute Basophils 0.0 Urine Color YELLOW Urine Appearance CLOUDY Urine pH 5.0 Ur Specific Lytle 1.025 Urine Protein NEGATIVE Urine Glucose (UA) NEGATIVE Urine Ketones NEGATIVE Urine Blood SMALL H Urine Nitrite NEGATIVE Ur Leukocyte Esterase MODERATE H Blood Type O POSITIVE Antibody Screen NEGATIVE 05/17/16 06:39 WBC 19.9 H RBC 3.73 Hgb 10.4 L Hct 30.6 L MCV 82 MCH 27.8 MCHC 33.9 RDW 14.1 H Plt Count 204 Seg Neutrophils % Lymphocytes % Monocytes % Eosinophils % Basophils % Absolute Neutrophils Absolute Lymphocytes Absolute Monocytes Absolute Eosinophils Absolute Basophils Urine Color Urine Appearance Urine pH Ur Specific Lytle Urine Protein Urine Glucose (UA) Urine Ketones Urine Blood Urine Nitrite Ur Leukocyte Esterase Blood Type Antibody Screen Assessment and Plan(PN) - Assessment and Plan (1) Hypertension affecting , antepartum Qualifiers: Trimester: third trimester Qualified Code(s): O16.3 - Unspecified maternal hypertension, third trimester Is this a current diagnosis for this admission?: YesPlan: monitor bp (2) delivery delivered Is this a current diagnosis for this admission?: YesPlan: routine post op care - Time Spent with Patient Time with patient: Less than 15 minutes Critical Time spent with patient: Less than 15 minutes Medications reviewed and adjusted accordingly: Yes - Disposition Anticipated Discharge: Home Within: within 48 hours
[2016-05-17] MEDS: OXYCODONE-ACETAMINOPHEN 5-325 MG TABLET PO PRN ×2 (17:34→22:06)
[2016-05-18] MEDS: OXYCODONE-ACETAMINOPHEN 5-325 MG TABLET PO PRN ×3 (03:51→18:55)
[2016-05-18] MEDS: IBUPROFEN 800 MG TABLET PO SCH ×3 (05:25→17:16)
--- NOTE | 2016-05-18 08:52 | PDOC PROGRESS REPORT ---
Subjective-OB Subjective: Post Delivery Day:2 25 year old. Denies any needs at this time, states lochia is stable, voiding without difficulty, pain well controlled, passing gas. Physical Exam (OB) Vital Signs: Temp Pulse Resp BP Pulse Ox 97.9 F 85 18 118/84 97 05/18/16 04:10 05/18/16 04:10 05/18/16 04:10 05/18/16 04:10 05/18/16 04:10 Intake & Output 05/17/16 05/18/16 05/19/16 06:59 06:59 06:59 Intake Total 2960 Output Total 100 2225 Balance -100 735 Weight 99.85 kg - Dressing Removed: No - silk pressure dressing Incision: Dressing - Lochia Lochia Amount: Small 10-25 ml Lochia Color: Rubra/Red - Abdomen Description: Tender, Soft Hernia Present: No Fundal Description: Firm, Midline Fundal Height: u/u - u/2 Objective-Diagnostic Laboratory: 05/17/16 06:39 Assessment and Plan(PN) - Assessment and Plan (1) Hypertension affecting , antepartum Qualifiers: Trimester: third trimester Qualified Code(s): O16.3 - Unspecified maternal hypertension, third trimester Is this a current diagnosis for this admission?: YesPlan: monitor bp (2) delivery delivered Is this a current diagnosis for this admission?: YesPlan: routine post op care - Time Spent with Patient Time with patient: Less than 15 minutes Critical Time spent with patient: Less than 15 minutes Medications reviewed and adjusted accordingly: Yes - Disposition Anticipated Discharge: Home Within: within 24 hours
[2016-05-18] MEDS: DOCUSATE SODIUM 100 MG CAPSULE PO SCH ×2 (09:35→17:16)
[2016-05-18] MEDS: PRENATAL VITAMIN W-O CA NO5/FE FUMARATE/FA CAPSULE PO SCH (09:35)
[2016-05-19] MEDS: IBUPROFEN 800 MG TABLET PO SCH ×3 (00:43→11:41)
[2016-05-19] MEDS: OXYCODONE-ACETAMINOPHEN 5-325 MG TABLET PO PRN ×2 (02:09→09:10)
[2016-05-19] MEDS: DOCUSATE SODIUM 100 MG CAPSULE PO SCH (09:08)
[2016-05-19] MEDS: PRENATAL VITAMIN W-O CA NO5/FE FUMARATE/FA CAPSULE PO SCH (09:08)
--- NOTE | 2016-05-19 09:57 | PDOC DISCHARGE SUMMARY ---
Final Diagnosis Discharge Date: 05/19/16 - Final Diagnosis (1) Hypertension affecting , antepartum Is this a current diagnosis for this admission?: Yes (2) delivery delivered Is this a current diagnosis for this admission?: Yes Discharge Data - Discharge Medication Home Medications: Vit No.129/Iron/FA [ One Daily Tablet] 1 each PO DAILY Docusate Sodium [Colace 100 mg Capsule] 100 mg PO BID #60 capsule 05/19/16 Ferrous Sulfate [Feosol 325 mg Tablet] 325 mg PO DAILY #30 tab 05/19/16 Ibuprofen [Motrin 800 mg Tablet] 800 mg PO Q6 #60 tablet 05/19/16 Oxycodone HCl/Acetaminophen [Percocet 5-325 mg Tablet] 2 tab PO Q4HP PRN #30 tablet 05/19/16 Gestational Age: 41.1 Reason(s) for Admission: Induction of Labor, PIH Procedures: NST Intrapartum Procedure(s): : Low Cervical, Transverse - Allen Data Baby 1 Male at 1 minute: 8 at 5 minutes: 9 Weight: 3475 kg Home with Mother: No Complications: Yes - low blood sugar - Diagnosis Test Laboratory: Temp Pulse Resp BP Pulse Ox 98.1 F 90 18 117/70 98 05/19/16 07:48 05/19/16 07:48 05/19/16 07:48 05/19/16 07:48 05/19/16 07:48 05/16/16 05/16/16 05/17/16 12:09 12:46 06:39 RBC 4.20 3.73 Hgb 11.7 L 10.4 L Hct 34.6 L 30.6 L Urine Opiates Screen NEGATIVE - Discharge information/Instructions Discharge Activity: Activity As Tolerated, No Driving, No Lifting Over 10 Pounds , Pelvic Rest, No tub bath Discharge Diet: Regular Disposition: HOME, SELF-CARE Follow up with: [facility] in: 1, Weeks - pt desires to nest.
[2016-05-19 10:17] VITALS: BP 130/91
--- NOTE | 2016-06-26 09:51 | OPERATIVE REPORT E ---
Operative Report NAME: DIMITRIS LUO : 1990 AGE: 25Y DATE OF SURGERY: 05/16/2016 ROOM: 223 PREOPERATIVE DIAGNOSES: 1. Term intrauterine . 2. Gestational hypertension. 3. Nonreassuring heart tones remote from delivery. POSTOPERATIVE DIAGNOSIS: 1. Term intrauterine . 2. Gestational hypertension. 3. Nonreassuring heart tones remote from delivery. PROCEDURE: Primary low-transverse section. SURGEON: Erick Salinas D.O. PROCESS ENGINEERING MANAGER: None. ANESTHESIA: Spinal. COMPLICATIONS: None. PATHOLOGY: Placenta. ESTIMATED BLOOD LOSS: 600 mL. FINDINGS: 1. Viable infant on 05/16/2016, male infant, Apgars 8 at one and 9 at five. 2. Normal-appearing bilateral fallopian tubes and ovaries. PROCEDURE: The patient was taken to the operating room where her spinal anesthesia was administered. Once this was found to be adequate she was placed in a dorsal lithotomy position with a leftward tilt upon the operating room table. She was then prepped and draped in normal sterile fashion. A scalpel was then used to make a Pfannenstiel skin incision. The skin incision was carried down through the subcutaneous tissue to the layer of the fascia. The fascia was then incised in the midline. The fascial incision was then extended bilaterally using the Bovie cautery. The superior fascial edge was grasped with Dorina clamps and elevated and the rectus muscles dissected off sharply and bluntly. Attention was then turned to the inferior fascial edge which was grasped with Dorina clamps, elevated, and the rectus muscles dissected off sharply and bluntly. The rectus muscles were then in the midline. The peritoneum was identified and entered bluntly with the surgeon's hands. A bladder blade was inserted. A scalpel was then used to make a low-transverse hysterotomy incision. The infant was found to be in a cephalic position and delivered through this incision without difficulty and atraumatically. The nose and mouth were suctioned. The cord was clamped and cut. The was handed off to the awaiting nurses. Cord blood was obtained. The placenta was then manually removed from the uterus. The uterus was then exteriorized and cleared of all clots and debris. The hysterotomy incision was then reapproximated using 1-0 Vicryl in a running, locking fashion. This was done in 2 layers. Following closure of the second layer excellent hemostasis was noted. The uterus was then returned to the abdomen. Again, the hysterotomy incision was reinspected and found to have excellent hemostasis. The rectus muscles were then reapproximated using 1-0 Vicryl in interrupted sutures. The fascia was then closed using 1-0 Vicryl in a running, nonlocking fashion. The subcutaneous space was made hemostatic using Bovie cautery. The skin was then closed with absorbable isael, covered with an OpSite and then with a pressure dressing. At this point in time the procedure was terminated. All sponge, lap, and needle counts were correct x2. The patient tolerated the procedure well. The patient was taken to the recovery room in stable condition. DICTATING PHYSICIAN: Erick Salinas DO [id number] PHY#: [id number] ID: [id number] JOB#: [id number] ACCT: [id number] cc:Erick Salinas D.O. >
== END 2016-05-19 13:31 | disposition home or self-care (01) | DRG 765 ==
LOC: LR 11:38 → 2S 05-17 02:07
PROVIDERS: ADMIT Obstetrics & Gynecology; ATTEND Obstetrics & Gynecology
PROC: 10D00Z1 Extraction of Products of Conception, Low, Open Approach (ICD-10-PCS; principal; 2016-05-16)
DX: O13.4 Gestational [pregnancy-induced] hypertension without significant proteinuria, complicating childbirth (principal); O41.03X0 Oligohydramnios, third trimester, not applicable or unspecified; O76 Abnormality in fetal heart rate and rhythm complicating labor and delivery; O48.0 Post-term pregnancy; Z37.0 Single live birth; Z3A.41 41 weeks gestation of pregnancy
CPT/HCPCS: 1961; 36415; 80307; 81005; 85025; 85027; 86592; 86850; 86900; 86901; 88307; 94799; J0131; J0690; J1100; J1170; J1885; J2175; J2210; J2250; J2370; J2405; J2590; J2765; J3010; J3490; J7120